=== PATIENT | female | born 1980 | race Caucasian/White ===

== ENCOUNTER → 2016-10-03 | Outpatient (CLI) | payer MEDICAID, OTHER | LOC: LABWHC1 17:15 | PROVIDERS: ATTEND Internal Medicine Endocrinology, Diabetes & Metabolism | CPT/HCPCS: 36415; 84439; 84443; 84480 ==

== ENCOUNTER 2016-10-25 19:16 | Emergency (ER) | payer MEDICAID, OTHER ==
[2016-10-25 19:24] VITALS: BP 118/73; PULSE 66; RESP 18; TEMP 98.7
[2016-10-25] MEDS ORDERED: ONDANSETRON ODT 4 MG TAB PO STA (19:57)
--- NOTE | 2016-10-25 20:03 | ED ---
Upper Extremity HPI - General Chief Complaint: Extremity Injury, Upper Stated Complaint: shoulder pain & diarrhea Time Seen by Provider: 10/25/16 19:50 Source: patient, RN notes reviewed Mode of arrival: ambulatory Limitations: no limitations - History of Present Illness Initial Comments: 35-year-old female presents emergency Department chief complaint left shoulder pain. Patient states it started yesterday. Patient states she had gradual onset of this pain states it's worse with any sort of movement of the left shoulder. Patient states she is right-hand dominant. She states that she felt that she may have injured it throwing a linen bag yesterday at work. 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 She denies chest pain, shortness breath, neck pain, headache, dizziness. She's been taking ibuprofen with no relief. Patient states that she also had a little bit nausea from the pain today. Patient has no abdominal pain denies any dysuria, hematuria. Patient states she has history of H. pylori no she's been treated for 4. Patient states she is scheduled recheck of this. Patient offers no other complaints. - Related Data Home Medications Medication Instructions Recorded Confirmed Methimazole [Tapazole] 2.5 mg PO DAILY 10/25/16 10/25/16 Previous Rx's Medication Instructions Recorded Cyclobenzaprine [Flexeril] 5 mg PO TID PRN #15 tablet 10/25/16 Hydrocodone/Acetaminophen [Bath 1 tab PO Q6HR PRN #20 tab 10/25/16 5-325] Allergies Allergy/AdvReac Type Severity Reaction Status Date / Time Cephalosporins Allergy Severe Rash/Hives Verified 10/25/16 19:49 Penicillins Allergy Severe Rash/Hives Verified 10/25/16 19:49 Sulfa (Sulfonamide Allergy Severe Rash/Hives Verified 10/25/16 19:49 Antibiotics) Review of Systems ROS Statement: Those systems with pertinent positive or pertinent negative responses have been documented in the HPI. ROS Other: All systems not noted in ROS Statement are negative. Past Medical History Past Medical History: Thyroid Disorder Additional Past Medical History / Comment(s): hx perforated ulcer, H Pylori, last seizure 2004,colitis, hypoglycemia, thyroid nodules, History of Any Multi-Drug Resistant Organisms: None Reported Past Surgical History: Appendectomy, Cholecystectomy Additional Past Surgical History / Comment(s): D&C, pilonidal cyst, cyst removed from back, leep procedure, sx for perforated ulcer.edg/colonoscopy Past Anesthesia/Blood Transfusion Reactions: Previous Problems w/ Anesthesia Additional Past Anesthesia/Blood Transfusion Reaction / Comment(s): "shaky and low BP" Past Psychological History: No Psychological Hx Reported Additional Psychological History / Comment(s): pt stated she lives with her 6 children ages 2,4,7,9,12,14. Smoking Status: Current some day smoker Past Alcohol Use History: None Reported Additional Past Alcohol Use History / Comment(s): smoked x 10 years has cut down now a someday smoker. a pack will last her 2 weeks Past Drug Use History: None Reported - Past Family History Brother(s) Family Medical History: Cancer General Exam Limitations: no limitations General appearance: alert, in no apparent distress Head exam: Present: atraumatic, normocephalic, normal inspection ENT exam: Present: normal oropharynx Neck exam: Present: normal inspection, full ROM. Absent: tenderness, meningismus, lymphadenopathy Respiratory exam: Present: normal lung sounds bilaterally. Absent: respiratory distress, wheezes, rales, rhonchi, stridor, chest wall tenderness Cardiovascular Exam: Present: regular rate, normal rhythm, normal heart sounds. Absent: systolic murmur, diastolic murmur, rubs, gallop, clicks GI/Abdominal exam: Present: soft, normal bowel sounds. Absent: distended, tenderness, guarding, rebound, rigid Extremities exam: Present: other (Left shoulder there is tenderness over left trapezius, deltoid region, there is pain with abduction, extension left shoulder there is equal strength 5/5 neurovascular intact no rashes noted) Skin exam: Present: warm, dry, intact, normal color. Absent: rash Course Vital Signs 10/25/16 19:18 Temperature 98.7 F Pulse Rate 66 Respiratory 18 Rate Blood Pressure 118/73 O2 Sat by Pulse 99 Oximetry Medical Decision Making - Medical Decision Making 34-year-old female presented for left shoulder pain. Patient states that she believes it's from throwing the linen bag. Patient x-rays negative. Patient has tenderness and spasm over the left deltoid, trapezius region. Patient left shoulder is drained. Patient we treated conservatively follow-up with her primary care physician and orthopedic no improvement after 7-10 days. Disposition Clinical Impression: Left shoulder strain, Muscle spasm Disposition: HOME SELF-CARE Condition: Stable Instructions: Shoulder Sprain (ED) Additional Instructions: Please return to the Emergency Department if symptoms worsen or any other concerns. Prescriptions: Cyclobenzaprine [Flexeril] 5 mg PO TID PRN #15 tablet PRN Reason: Muscle Spasm Hydrocodone/Acetaminophen [Bath 5-325] 1 tab PO Q6HR PRN #20 tab PRN Reason: Pain Time of Disposition: 20:39
--- NOTE | 2016-10-25 20:34 | XR ---
EXAMINATION TYPE: XR shoulder complete LT DATE OF EXAM: 10/25/2016 8:30 PM CLINICAL HISTORY: pain COMPARISON: NONE TECHNIQUE: Three views of the left shoulder are obtained. FINDINGS: There is no acute fracture/dislocation evident. The acromioclavicular and glenohumeral iveth int spaces appear within normal limits. The visualized ribs are intact and unremarkable. IMPRESSION: 1. There is no acute fracture or dislocation. ICD 10 NO FRACTURE, INITIAL EVALUATION
[2016-10-25] MEDS ORDERED: HYDROcodone/APAP 5-325MG 1 EACH TAB PO STA (20:36)
[2016-10-25] MEDS ORDERED: IBUPROFEN 600 MG TAB PO STA (20:40)
== END 2016-10-25 20:57 | disposition home or self-care (01) ==
LOC: EC 19:16
DX: S46.912A Strain of unspecified muscle, fascia and tendon at shoulder and upper arm level, left arm, initial encounter (principal); M62.838 Other muscle spasm; E07.9 Disorder of thyroid, unspecified; F17.200 Nicotine dependence, unspecified, uncomplicated; Z79.899 Other long term (current) drug therapy; Z88.0 Allergy status to penicillin; Z88.2 Allergy status to sulfonamides; Z88.1 Allergy status to other antibiotic agents; Y99.0 Civilian activity done for income or pay; X50.9XXA Other and unspecified overexertion or strenuous movements or postures, initial encounter
CPT/HCPCS: 99283

== ENCOUNTER 2017-02-21 16:20 | Emergency (ER) | payer MEDICAID, OTHER ==
[2017-02-21] MEDS ORDERED: SODIUM CHLORIDE 0.9% 1,000 ML IV STA ×2 (16:49)
[2017-02-21] MEDS ORDERED: ONDANSETRON 4 MG/2 ML VIAL IVP STA (16:49)
[2017-02-21] MEDS ORDERED: HYDROmorphone 1 MG/ML 1 ML SYRINGE IVP STA ×2 (16:49→19:09)
[2017-02-21] MEDS ORDERED: FAMOTIDINE 20 MG/2 ML VIAL IV STA (16:50)
--- NOTE | 2017-02-21 17:13 | ED ---
General Adult HPI - General Chief complaint: Abdominal Pain Stated complaint: abd pain Time Seen by Provider: 02/21/17 16:31 Source: patient, RN notes reviewed Mode of arrival: ambulatory Limitations: no limitations - History of Present Illness Initial comments: Patient is a 36-year-old female who presents emergency room today with a chief complaint of increased abdominal pain. She does admit to a history of H. pylori. She states that she's had flareups in the past. She does admit that she's had increased abdominal pain that started earlier today while being at work. She does admit that she has been nauseated now over the last few days. Patient denies any other complaints or associated symptoms. Patient denies any recent fever, chills, shortness of breath, chest pain, back pain, vomiting, numbness or tingling, dysuria or hematuria, constipation or diarrhea, headaches or visual changes, or any other complaints. - Related Data Home Medications Medication Instructions Recorded Confirmed Methimazole [Tapazole] 2.5 mg PO DAILY 10/25/16 02/21/17 Ibuprofen [Motrin] 400 - 800 mg PO Q8H PRN 02/21/17 02/21/17 Previous Rx's Medication Instructions Recorded Famotidine [Pepcid] 20 mg PO BID #20 tablet 02/21/17 Hydrocodone/Acetaminophen [Henry 1 each PO Q6HR PRN #20 tab 02/21/17 5-325] Allergies Allergy/AdvReac Type Severity Reaction Status Date / Time Cephalosporins Allergy Severe Rash/Hives Verified 02/21/17 17:20 Penicillins Allergy Severe Rash/Hives Verified 02/21/17 17:20 Sulfa (Sulfonamide Allergy Severe Rash/Hives Verified 02/21/17 17:20 Antibiotics) Review of Systems ROS Statement: Those systems with pertinent positive or pertinent negative responses have been documented in the HPI. ROS Other: All systems not noted in ROS Statement are negative. Past Medical History Past Medical History: Thyroid Disorder Additional Past Medical History / Comment(s): hx perforated ulcer, H Pylori, last seizure 2004,colitis, hypoglycemia, thyroid nodules, History of Any Multi-Drug Resistant Organisms: None Reported Past Surgical History: Appendectomy, Cholecystectomy Additional Past Surgical History / Comment(s): D&C, pilonidal cyst, cyst removed from back, leep procedure, sx for perforated ulcer.edg/colonoscopy Past Anesthesia/Blood Transfusion Reactions: Previous Problems w/ Anesthesia Additional Past Anesthesia/Blood Transfusion Reaction / Comment(s): "shaky and low BP" Past Psychological History: No Psychological Hx Reported Smoking Status: Current every day smoker Past Alcohol Use History: None Reported Past Drug Use History: None Reported - Past Family History Brother(s) Family Medical History: Cancer General Exam - General Exam Comments Initial Comments: General: The patient is awake and alert, in no distress, and does not appear acutely ill. Eye: Pupils are equal, round and reactive to light, extra-ocular movements are intact. No nystagmus. There is normal conjunctiva bilaterally. No signs of icterus. Ears, nose, mouth and throat: There are moist mucous membranes and no oral lesions. Neck: The neck is supple, there is no tenderness or JVD. Cardiovascular: There is a regular rate and rhythm. No murmur, rub or gallop is appreciated. Respiratory: Lungs are clear to auscultation, respirations are non-labored, breath sounds are equal. No wheezes, stridor, rales, or rhonchi. Gastrointestinal: Normal appearance abdomen. Normal bowel sounds. Abdomen soft on palpation. Patient does have tenderness epigastric. No rebound tenderness. No guarding. No CVA tenderness. Musculoskeletal: Normal ROM, no tenderness. Strength 5/5. Sensation intact. Pulses equal bilaterally 2+. Neurological: A&O x 3. CN II-XII intact, There are no obvious motor or sensory deficits. Coordination appears grossly intact. Speech is normal. Skin: Skin is warm and dry and no rashes or lesions are noted. Psychiatric: Cooperative, appropriate mood & affect, normal judgment. Limitations: no limitations Course Vital Signs 02/21/17 16:24 Temperature 98.1 F Pulse Rate 68 Respiratory 20 Rate Blood Pressure 129/78 O2 Sat by Pulse 99 Oximetry Medical Decision Making - Medical Decision Making Patient's labs reviewed unremarkable. Patient still experiencing some discomfort to the epigastric area but does admit that the GI cocktail didn't improve. She does admit to a history of both H. pylori along with ulcer in the past. Was discussed with patient that she does need follow-up with her GI doctor for further evaluation and possible EGD. Patient does take a acid hog buyer. Advised to double up this medication also take Pepcid. Patient will be discharged home advised follow-up with GI tomorrow. Advised return if symptoms increase or worsen. - Lab Data Result diagrams: 02/21/17 17:00 02/21/17 17:00 Lab Results 02/21/17 02/21/17 02/21/17 Range/Units 17:00 17:00 17:00 WBC 8.8 (3.8-10.6) k/uL RBC 4.33 (3.80-5.40) m/uL Hgb 14.6 (11.4-16.0) gm/dL Hct 41.4 (34.0-46.0) % MCV 95.5 (80.0-100.0) fL MCH 33.6 (25.0-35.0) pg MCHC 35.2 (31.0-37.0) g/dL RDW 13.1 (11.5-15.5) % Plt Count 238 (150-450) k/uL Neutrophils % 72 % Lymphocytes % 19 % Monocytes % 5 % Eosinophils % 1 % Basophils % 1 % Neutrophils # 6.4 (1.3-7.7) k/uL Lymphocytes # 1.7 (1.0-4.8) k/uL Monocytes # 0.5 (0-1.0) k/uL Eosinophils # 0.1 (0-0.7) k/uL Basophils # 0.1 (0-0.2) k/uL Sodium 139 (137-145) mmol/L Potassium 3.8 (3.5-5.1) mmol/L Chloride 107 (98-107) mmol/L Carbon Dioxide 23 (22-30) mmol/L Anion Gap 9 mmol/L BUN 10 (7-17) mg/dL Creatinine 0.61 (0.52-1.04) mg/dL Est GFR (MDRD) Af Amer >60 (>60 ml/min/1.73 sqM) Est GFR (MDRD) Non-Af >60 (>60 ml/min/1.73 sqM) Glucose 85 (74-99) mg/dL Calcium 9.2 (8.4-10.2) mg/dL Total Bilirubin 0.6 (0.2-1.3) mg/dL AST 31 (14-36) U/L ALT 46 (9-52) U/L Alkaline Phosphatase 72 (38-126) U/L Total Protein 6.6 (6.3-8.2) g/dL Albumin 4.1 (3.5-5.0) g/dL Amylase <30 L (30-110) U/L Lipase 54 (23-300) U/L Urine Color Yellow Urine Appearance Cloudy H (Clear) Urine pH 5.5 (5.0-8.0) Ur Specific [place] 1.014 (1.001-1.035) Urine Protein Negative (Negative) Urine Glucose (UA) Negative (Negative) Urine Ketones Negative (Negative) Urine Blood Small H (Negative) Urine Nitrite Negative (Negative) Urine Bilirubin Negative (Negative) Urine Urobilinogen <2.0 (<2.0) mg/dL Ur Leukocyte Esterase Negative (Negative) Urine RBC 2 (0-5) /hpf Urine WBC 2 (0-5) /hpf Ur Squamous Epith Cells 10 H (0-4) /hpf Urine Bacteria Rare H (None) /hpf Urine Mucus Rare H (None) /hpf Urine Yeast (Budding) Moderate H (None) /hpf Urine HCG, Qual (Not Detectd) 02/21/17 Range/Units 17:00 WBC (3.8-10.6) k/uL RBC (3.80-5.40) m/uL Hgb (11.4-16.0) gm/dL Hct (34.0-46.0) % MCV (80.0-100.0) fL MCH (25.0-35.0) pg MCHC (31.0-37.0) g/dL RDW (11.5-15.5) % Plt Count (150-450) k/uL Neutrophils % % Lymphocytes % % Monocytes % % Eosinophils % % Basophils % % Neutrophils # (1.3-7.7) k/uL Lymphocytes # (1.0-4.8) k/uL Monocytes # (0-1.0) k/uL Eosinophils # (0-0.7) k/uL Basophils # (0-0.2) k/uL Sodium (137-145) mmol/L Potassium (3.5-5.1) mmol/L Chloride (98-107) mmol/L Carbon Dioxide (22-30) mmol/L Anion Gap mmol/L BUN (7-17) mg/dL Creatinine (0.52-1.04) mg/dL Est GFR (MDRD) Af Amer (>60 ml/min/1.73 sqM) Est GFR (MDRD) Non-Af (>60 ml/min/1.73 sqM) Glucose (74-99) mg/dL Calcium (8.4-10.2) mg/dL Total Bilirubin (0.2-1.3) mg/dL AST (14-36) U/L ALT (9-52) U/L Alkaline Phosphatase (38-126) U/L Total Protein (6.3-8.2) g/dL Albumin (3.5-5.0) g/dL Amylase (30-110) U/L Lipase (23-300) U/L Urine Color Urine Appearance (Clear) Urine pH (5.0-8.0) Ur Specific [place] (1.001-1.035) Urine Protein (Negative) Urine Glucose (UA) (Negative) Urine Ketones (Negative) Urine Blood (Negative) Urine Nitrite (Negative) Urine Bilirubin (Negative) Urine Urobilinogen (<2.0) mg/dL Ur Leukocyte Esterase (Negative) Urine RBC (0-5) /hpf Urine WBC (0-5) /hpf Ur Squamous Epith Cells (0-4) /hpf Urine Bacteria (None) /hpf Urine Mucus (None) /hpf Urine Yeast (Budding) (None) /hpf Urine HCG, Qual Not Detected (Not Detectd) Disposition Clinical Impression: Epigastric abdominal pain Disposition: HOME SELF-CARE Condition: Good Instructions: Abdominal Pain (ED) Additional Instructions: Please use medication as discussed. Please follow-up with GI / family doctor in the next 2 days of symptoms have not improved. Please return to emergency room if the symptoms increase or worsen or for any other concerns. Prescriptions: Famotidine [Pepcid] 20 mg PO BID #20 tablet Hydrocodone/Acetaminophen [Henry 5-325] 1 each PO Q6HR PRN #20 tab PRN Reason: Pain Referrals: None,Stated [Primary Care Provider] - 1-2 days Aide Dove MD [STAFF PHYSICIAN] - 1-2 days Clemente Orozco MD [REFERRING] - 1-2 days Time of Disposition: 19:11
[2017-02-21 17:14] LABS: Basophils # (A) 0.1 k/uL (0-0.2); Basophils % (A) 1 %; CH 35.2; Eosinophils # (A) 0.1 k/uL (0-0.7); Eosinophils % (A) 1 %; HCT 41.4 % (34.0-46.0); HDW 2.64; HGB 14.6 gm/dL (11.4-16.0); Luc # (Auto) 0.16; Luc % (Auto) 2; Lymphocytes # (A) 1.7 k/uL (1.0-4.8); Lymphocytes % (A) 19 %; MCH 33.6 pg (25.0-35.0); MCHC 35.2 g/dL (31.0-37.0); MCV 95.5 fL (80.0-100.0); Mean Platelet Volume 7.9; Monocytes # (A) 0.5 k/uL (0-1.0); Monocytes % (A) 5 %; Neutrophils # (A) 6.4 k/uL (1.3-7.7); Neutrophils % (A) 72 %; RBC 4.33 m/uL (3.80-5.40); RDW 13.1 % (11.5-15.5); WBC 8.8 k/uL (3.8-10.6); WBC (Perox) 8.69
[2017-02-21 17:23] LABS: ALT 46 U/L (9-52); AST 31 U/L (14-36); Alkaline Phosphatase 72 U/L (38-126); Amylase <30 U/L (30-110); Anion Gap 9 mmol/L; Blood Urea Nitrogen 10 mg/dL (7-17); Calcium 9.2 mg/dL (8.4-10.2); Carbon Dioxide 23 mmol/L (22-30); Chloride 107 mmol/L (98-107); Glucose 85 mg/dL (74-99); Non-African American GFR(MDRD) >60 (>60 ml/min/1.73 sqM); Potassium 3.8 mmol/L (3.5-5.1); Sodium 139 mmol/L (137-145); Total Bilirubin 0.6 mg/dL (0.2-1.3); Total Protein 6.6 g/dL (6.3-8.2)
[2017-02-21 17:24] LABS: Appearance,Urine Cloudy (Clear); Bacteria,Urine Rare /hpf; Bilirubin,Urine Negative (Negative); Glucose,Urine (UA) Negative (Negative); Ketones,Urine Negative (Negative); Leukocyte Esterase,Urine Negative (Negative); Mucus,Urine Rare /hpf; Nitrite,Urine Negative (Negative); PH, Urine 5.5 (5.0-8.0); Particle Count 5909; Protein,Urine Negative (Negative); RBC,Urine 2 /hpf (0-5); Specific Gravity,Urine 1.014 (1.001-1.035); Squamous Epithelial Cell,Urine 10 /hpf (0-4); UA Billing (MACRO vs. MICRO) MICRO; Urobilinogen,Urine <2.0 mg/dL (<2.0); WBC,Urine 2 /hpf (0-5)
[2017-02-21] MEDS ORDERED: MAG HYDROX/AL HYDROX/SIMETH 30 ML, HYOSCYAMINE ELIXIR 10 ML, CIMETIDINE HCL 300 MG, LID... PO STA ×4 (17:53)
[2017-02-21] MEDS ORDERED: PANTOPRAZOLE 40 MG/10 ML VIAL IVP STA (18:56)
[2017-02-21 19:27] VITALS: BP 109/56; PULSE 56; RESP 16; TEMP 97.6
== END 2017-02-21 20:03 | disposition home or self-care (01) ==
LOC: EC 16:20
DX: R10.13 Epigastric pain (principal); R11.0 Nausea; E07.89 Other specified disorders of thyroid; F17.200 Nicotine dependence, unspecified, uncomplicated; Z79.899 Other long term (current) drug therapy; Z88.0 Allergy status to penicillin; Z88.1 Allergy status to other antibiotic agents; Z88.2 Allergy status to sulfonamides; Z90.49 Acquired absence of other specified parts of digestive tract
CPT/HCPCS: 99284; 96374; 96375 ×3; 96376; 96361 ×3; 36415; 80053; 82150; 83690; 85025; 81001; 81025; 86677; J2405; J1170; C9113

== ENCOUNTER 2017-05-28 15:33 | Emergency (ER) | payer MEDICAID, OTHER ==
[2017-05-28 15:56] VITALS: BP 119/80; PULSE 81; RESP 16; TEMP 97.9
[2017-05-28] MEDS ORDERED: PROPARACAINE 0.5% OPHTH DROPS 15 ML BTL LEFT EYE STA (16:02)
--- NOTE | 2017-05-28 16:12 | ED ---
Eye Problem HPI - General Chief complaint: Eye Problems Stated complaint: Eye Problem Time Seen by Provider: 05/28/17 15:46 Source: patient, RN notes reviewed Mode of arrival: ambulatory Limitations: no limitations - History of Present Illness Initial comments: This is a 36-year-old female who presents to the emergency department with chief complaint of left eye redness and tearing. Patient states that she was diagnosed and treated for conjunctivitis one month ago. She states this past Sunday evening her left eye became red and painful. She states that she took out her contacts and did not wear them for the remainder of the weekend. She states that there has been purulent discharge and tearing. She reports photophobia. She denies itchiness or vision changes. Patient reports nasal congestion, sore throat and cough. She reports she is a contact lens wearer. Denies fever, chills, chest pain, shortness of breath, abdominal pain, nausea or vomiting, constipation or diarrhea, dysuria or hematuria, numbness or tingling, headache or vision changes. - Related Data Previous Rx's Medication Instructions Recorded Ciprofloxacin Ophth Soln [Cipro 1 drops LEFT EYE DIRECTED 7 05/28/17 0.3% Ophth Soln] Days #1 bottle Allergies Allergy/AdvReac Type Severity Reaction Status Date / Time Cephalosporins Allergy Severe Rash/Hives Verified 04/10/17 22:21 Penicillins Allergy Severe Rash/Hives Verified 04/10/17 22:21 Sulfa (Sulfonamide Allergy Severe Rash/Hives Verified 04/10/17 22:21 Antibiotics) Review of Systems ROS Statement: Those systems with pertinent positive or pertinent negative responses have been documented in the HPI. ROS Other: All systems not noted in ROS Statement are negative. Past Medical History Past Medical History: Thyroid Disorder Additional Past Medical History / Comment(s): hx perforated ulcer, H Pylori, last seizure 2004,colitis, hypoglycemia, thyroid nodules, History of Any Multi-Drug Resistant Organisms: None Reported Past Surgical History: Appendectomy, Cholecystectomy Additional Past Surgical History / Comment(s): D&C, pilonidal cyst, cyst removed from back, leep procedure, sx for perforated ulcer.edg/colonoscopy Past Anesthesia/Blood Transfusion Reactions: Previous Problems w/ Anesthesia Additional Past Anesthesia/Blood Transfusion Reaction / Comment(s): "shaky and low BP" Past Psychological History: No Psychological Hx Reported Smoking Status: Current every day smoker Past Alcohol Use History: None Reported Past Drug Use History: None Reported - Past Family History Brother(s) Family Medical History: Cancer General Exam - General Exam Comments Initial Comments: General: Awake and alert, well-developed; in no apparent distress. HEENT: Head atraumatic, normocephalic. Pupils are equal, round and reactive to light. Extraocular movements intact. Left conjunctiva injected. Excessive lacrimation noted. Fluorescein staining revealed no abrasions or ulcers. Oropharynx moist without erythema or exudate. Neck: Supple. Normal ROM. Cardiovascular: Regular rate and rhythm. No murmurs, rubs or gallops. Chest symmetrical. Respiratory: Lungs clear to auscultation bilaterally. No wheezes, rales or rhonchi. Normal respiratory effort with no use of accessory muscles. Skin: [place], warm and dry without rashes or lesions. Neurological: Alert and oriented x3. CN II-XII grossly intact. Speech is fluent and answers are appropriate. No focal neuro deficits. Psychiatric: Normal mood and affect. No overt signs of depression or anxiety noted. Limitations: no limitations Course Vital Signs 05/28/17 15:53 Temperature 97.9 F Pulse Rate 81 Respiratory 16 Rate Blood Pressure 119/80 O2 Sat by Pulse 98 Oximetry Medical Decision Making - Medical Decision Making This is a 36-year-old female who presents to the emergency department with chief complaint of left eye redness and tearing. Pupils are equal round and reactive to light. Extraocular movements are intact. Fluorescein staining revealed no abrasions or ulcers. Left conjunctiva is injected. Patient will be discharged home with prescription for ciprofloxacin eyedrops. She was instructed to withhold use of contact lenses during treatment. She is given referral to ophthalmology. She is to follow up within 1-2 days. Patient is in agreement with the plan and voices understanding. All questions were answered. Disposition Clinical Impression: Viral conjunctivitis Disposition: HOME SELF-CARE Condition: Good Instructions: Conjunctivitis (ED) Additional Instructions: Please apply ciprofloxacin to left eye: 1-2 drops every 2-4 hours for 2 days then 1-2 drops every 6 hours for 5 days. Please follow up with Dr. Braxton, ophthalmology. Please follow up with primary care provider within 1-2 days. Return to emergency department if symptoms should worsen or any concerns arise. Prescriptions: Ciprofloxacin Ophth Soln [Cipro 0.3% Ophth Soln] 1 drops LEFT EYE DIRECTED 7 Days #1 bottle Referrals: None,Stated [Primary Care Provider] - 1-2 days Time of Disposition: 16:22
== END 2017-05-28 16:27 | disposition home or self-care (01) ==
LOC: EC 15:33
DX: B30.9 Viral conjunctivitis, unspecified (principal); F17.200 Nicotine dependence, unspecified, uncomplicated; Z88.1 Allergy status to other antibiotic agents; Z88.0 Allergy status to penicillin; Z88.2 Allergy status to sulfonamides
CPT/HCPCS: 99283

== ENCOUNTER 2017-07-06 16:45 | Emergency (ER) | payer MEDICAID, OTHER ==
[~2017-07-06 16:45] MED LIST: SODIUM CHLORIDE 0.9% 1,000 ML BAG ONE
[2017-07-06] MEDS ORDERED: ACETAMINOPHEN TAB 325 MG TAB ONE (20:52)
[2017-07-06] MEDS ORDERED: KETOROLAC 30 MG/ML 1 ML VIAL ONE (20:52)
[2017-07-06] MEDS ORDERED: ONDANSETRON 4 MG/2 ML VIAL ONE (20:52)
[2017-07-07 17:16] LABS: Appearance,Urine Cloudy (Clear); Bilirubin,Urine Negative (Negative); Blood,Urine Trace (Negative); Color,Urine Yellow; Glucose,Urine (UA) Negative (Negative); Ketones,Urine 1+ (Negative); Leukocyte Esterase,Urine Trace (Negative); Mucus,Urine Many /hpf; Nitrite,Urine Negative (Negative); PH, Urine 5.5 (5.0-8.0); Protein,Urine 1+ (Negative); RBC,Urine 1 /hpf (0-5); Specific Gravity,Urine 1.028 (1.001-1.035); Squamous Epithelial Cell,Urine 7 /hpf (0-4); WBC,Urine 2 /hpf (0-5)
[2017-07-07 17:33] LABS: Basophils # (A) 0.1 k/uL (0-0.2); Basophils % (A) 1 %; Eosinophils # (A) 0.1 k/uL (0-0.7); Eosinophils % (A) 1 %; HCT 43.6 % (34.0-46.0); HGB 15.8 gm/dL (11.4-16.0); Lymphocytes # (A) 1.8 k/uL (1.0-4.8); Lymphocytes % (A) 17 %; MCH 33.9 pg (25.0-35.0); MCHC 36.2 g/dL (31.0-37.0); MCV 93.7 fL (80.0-100.0); Mean Platelet Volume 7.3; Monocytes # (A) 0.6 k/uL (0-1.0); Monocytes % (A) 5 %; Neutrophils # (A) 7.8 k/uL (1.3-7.7); Neutrophils % (A) 74 %; Platelet Count 234 k/uL (150-450); RBC 4.66 m/uL (3.80-5.40); RDW 12.6 % (11.5-15.5); WBC 10.6 k/uL (3.8-10.6)
[2017-07-07 17:36] LABS: ALT 64 U/L (9-52); AST 31 U/L (14-36); Albumin 4.4 g/dL (3.5-5.0); Alkaline Phosphatase 99 U/L (38-126); Anion Gap 13 mmol/L; Blood Urea Nitrogen 10 mg/dL (7-17); Calcium 10.1 mg/dL (8.4-10.2); Carbon Dioxide 26 mmol/L (22-30); Chloride 103 mmol/L (98-107); Glucose 83 mg/dL (74-99); Potassium 3.6 mmol/L (3.5-5.1); Sodium 142 mmol/L (137-145); Total Bilirubin 0.8 mg/dL (0.2-1.3); Total Protein 7.3 g/dL (6.3-8.2)
[2017-07-07 19:03] LABS: HCG,Quantitative Serum <2.4 mIU/mL
== END 2017-07-06 22:23 | disposition home or self-care (01) ==
LOC: EC 16:45
DX: N39.0 Urinary tract infection, site not specified (principal); F17.200 Nicotine dependence, unspecified, uncomplicated; Z90.49 Acquired absence of other specified parts of digestive tract
CPT/HCPCS: 36415; 80053; 85025; 81001; 84702; 99283; 96374; 96375; 96361; J2405; J1885

== ENCOUNTER → 2017-10-09 | Outpatient (CLI) | payer MEDICAID, OTHER ==
[2017-10-09 16:09] LABS: T4, Free (Free Thyroxine) 1.17 ng/dL (0.78-2.19)
== END | disposition home or self-care (01) ==
LOC: LABWHC1 15:14
PROVIDERS: ATTEND Internal Medicine Endocrinology, Diabetes & Metabolism
DX: E05.90 Thyrotoxicosis, unspecified without thyrotoxic crisis or storm (principal)
CPT/HCPCS: 36415; 84439; 84443; 84481

== ENCOUNTER 2017-11-23 13:20 | Emergency (ER) | payer MEDICAID, OTHER ==
[2017-11-23 13:49] VITALS: BP 122/73; PULSE 75; RESP 18; TEMP 98.1
--- NOTE | 2017-11-23 14:50 | ED ---
General Adult HPI - General Chief complaint: Skin/Abscess/Foreign Body Stated complaint: Abcess Time Seen by Provider: 11/23/17 13:57 Source: patient, RN notes reviewed Mode of arrival: ambulatory Limitations: no limitations - History of Present Illness Initial comments: 37-year-old female presents to the emergency determine for a chief complaint of skin lesion x 3 years. Patient states in the past 2 weeks has started to become painful. Patient denies any fevers or chills at home. Patient has not had it looked at by a family doctor. Patient has not taken anything for pain. Patient does state she has had shortness of breath for the past couple years and would like an x-ray. Patient is a smoker. Patient denies any shortness of breath right now. Patient denies any chest pain except when you press on the skin nodule. Patient states she is able to follow up with her primary care doctor. Patient denies any chance of . Patient has no other complaints at this time including shortness of breath, chest pain, abdominal pain, nausea or vomiting, headache, or visual changes. - Related Data Home Medications Medication Instructions Recorded Confirmed [place] (Unknown Dose) 1 tab PO DAILY 11/23/17 11/23/17 Potassium (Unknown Dose) 1 tab PO DAILY 11/23/17 11/23/17 Allergies Allergy/AdvReac Type Severity Reaction Status Date / Time Cephalosporins Allergy Severe Rash/Hives Verified 11/23/17 13:54 Penicillins Allergy Severe Rash/Hives Verified 11/23/17 13:54 Sulfa (Sulfonamide Allergy Severe Rash/Hives Verified 11/23/17 13:54 Antibiotics) Review of Systems ROS Statement: Those systems with pertinent positive or pertinent negative responses have been documented in the HPI. ROS Other: All systems not noted in ROS Statement are negative. Past Medical History Past Medical History: Seizure Disorder, Thyroid Disorder Additional Past Medical History / Comment(s): hx perforated ulcer, H Pylori, last seizure 2004,colitis, hypoglycemia, thyroid nodules, History of Any Multi-Drug Resistant Organisms: None Reported Past Surgical History: Appendectomy, Cholecystectomy Additional Past Surgical History / Comment(s): D&C, pilonidal cyst, cyst removed from back, leep procedure, sx for perforated ulcer.edg/colonoscopy Past Anesthesia/Blood Transfusion Reactions: Previous Problems w/ Anesthesia Additional Past Anesthesia/Blood Transfusion Reaction / Comment(s): "shaky and low BP" Past Psychological History: Anxiety Smoking Status: Current every day smoker Past Alcohol Use History: None Reported Past Drug Use History: None Reported - Past Family History Brother(s) Family Medical History: Cancer General Exam Limitations: no limitations General appearance: alert, in no apparent distress Head exam: Present: atraumatic, normocephalic, normal inspection Neck exam: Present: normal inspection. Absent: tenderness, meningismus, lymphadenopathy Respiratory exam: Present: normal lung sounds bilaterally, chest wall tenderness (Chest wall tenderness around the nodule.). Absent: respiratory distress, wheezes, rales, rhonchi, stridor Cardiovascular Exam: Present: regular rate, normal rhythm, normal heart sounds. Absent: systolic murmur, diastolic murmur, rubs, gallop, clicks Neurological exam: Present: alert, altered Psychiatric exam: Present: normal affect, normal mood Skin exam: Present: other (There is a slightly erythematous 1.5 cm nodule. Upon palpation nodule is indurated. It is not fluctuant and cannot be drained. No signs of cellulitis or infection. No spreading redness or streaking redness.) Course Vital Signs 11/23/17 13:46 Temperature 98.1 F Pulse Rate 75 Respiratory 18 Rate Blood Pressure 122/73 O2 Sat by Pulse 97 Oximetry Medical Decision Making - Medical Decision Making 37-year-old female presents to the emergency department for a chief complaint of 1.5 cm nodule above the left breast 3 years. Patient states it started to become painful in the past 2 weeks. Patient states denies any fevers or chills at home. Patient denies any chest pain. She does states she has been short of breath for the past couple years and is a smoker. She would like a chest x- ray. She states she can follow-up with primary care for this problem. On exam there is a tender slightly red 1.5 cm nodule above the left breast. It does not appear infected and there are no signs of cellulitis. No signs of spreading redness or drainage. It is indurated and mobile. No fluctuation. Nodule cannot be drained because of this. She will follow up with dermatology in 1-2 days. She will return to the emergency Department if she notices any worsening symptoms or signs of infection. She will do warm compresses in case that helps with the tenderness. She can take Motrin and Tylenol for pain. She was not given an antibiotic because it is not likely that she needs one and she is ALLERGIC to penicillin and cephalosporins and sulfas. She is not sure what type of antibiotic she tolerates. She was given thorough return precautions for any signs of infection and she will return if she notices any. Disposition Clinical Impression: Skin nodule Disposition: HOME SELF-CARE Condition: Good Instructions: Abscess (ED) Additional Instructions: Please apply warm compresses. Please follow-up with dermatology in 1-2 days. Please return to the emergency department if you have any worsening symptoms or signs of infection. Is patient prescribed a controlled substance at d/c from ED?: No Referrals: Red Negrete MD [Primary Care Provider] - 1-2 days Barak Luke MD [STAFF PHYSICIAN] - 1-2 days Time of Disposition: 15:32
--- NOTE | 2017-11-23 15:27 | XR ---
EXAMINATION TYPE: XR chest 2V DATE OF EXAM: 11/23/2017 COMPARISON: 02/24/2015 HISTORY: Cough, congestion, and fever TECHNIQUE: Frontal and lateral views of the chest are obtained. FINDINGS: There is no focal air space opacity, pleural effusion, or pneumothorax seen. The cardiac silhouette size is within normal limits. The osseous structures are intact. Cholecystectomy clips r eside within the right upper quadrant. There is incidental note of a slight pectus excavatum deformit y. IMPRESSION: No acute cardiopulmonary process.
== END 2017-11-23 15:44 | disposition home or self-care (01) ==
LOC: EC 13:20
DX: R22.2 Localized swelling, mass and lump, trunk (principal); F17.200 Nicotine dependence, unspecified, uncomplicated; Z79.899 Other long term (current) drug therapy; Z88.0 Allergy status to penicillin; Z88.1 Allergy status to other antibiotic agents; Z88.2 Allergy status to sulfonamides
CPT/HCPCS: 71046; 99283

== ENCOUNTER 2018-07-20 15:35 | Emergency (ER) | payer MEDICAID, OTHER ==
[2018-07-20] MEDS ORDERED: MORPHINE SULFATE 4 MG/ML SYRINGE IV STA (16:31)
[2018-07-20] MEDS ORDERED: SODIUM CHLORIDE 0.9% 1,000 ML IV STA (16:31)
[2018-07-20] MEDS ORDERED: ONDANSETRON 4 MG/2 ML VIAL IVP STA (16:31)
--- NOTE | 2018-07-20 16:45 | ED ---
Abdominal Pain HPI - General Chief Complaint: Abdominal Pain Stated Complaint: , Cramping Time Seen by Provider: 07/20/18 16:11 Source: patient Mode of arrival: ambulatory Limitations: no limitations - History of Present Illness Initial Comments: Patient is a 37-year-old female presenting for abdominal pain. The patient states that the pain is been present for the last 3-4 days and is located in the lower abdomen all the way across with more so on the right side. She states that the pain does radiate to her back but she denies any urinary symptoms vaginal discharge or fevers/chills. She states that she is also had her appendix removed and she has had a history of an ectopic 4 years ago. She admits to nausea but no vomiting. She also has had diarrhea but she has IBS. Her last menstrual period was sometime last month and she thinks that she is late. - Related Data Home Medications Medication Instructions Recorded Confirmed No Known Home Medications 07/20/18 07/20/18 Allergies Allergy/AdvReac Type Severity Reaction Status Date / Time Cephalosporins Allergy Severe Rash/Hives Verified 07/20/18 16:19 Penicillins Allergy Severe Rash/Hives Verified 07/20/18 16:19 Sulfa (Sulfonamide Allergy Severe Rash/Hives Verified 07/20/18 16:19 Antibiotics) Review of Systems ROS Statement: Those systems with pertinent positive or pertinent negative responses have been documented in the HPI. Constitutional: Negative for chills, fatigue and fever. HENT: Negative for congestion. Respiratory: Negative for chest tightness, shortness of breath and wheezing. Negative for cough Cardiovascular: Negative for chest pain and palpitations. Gastrointestinal: Positive for abdominal pain. Negative for abdominal distention , diarrhea, and vomiting. Positive for nausea Genitourinary: Negative for dysuria. Musculoskeletal: Negative for back pain, neck pain and neck stiffness. Skin: Negative for color change. Neurological: Negative for dizziness, speech difficulty, weakness and light- headedness. Psychiatric/Behavioral: Negative for agitation and confusion. Negative for anxiety ROS Other: All systems not noted in ROS Statement are negative. Past Medical History Past Medical History: Seizure Disorder, Thyroid Disorder Additional Past Medical History / Comment(s): hx perforated ulcer, H Pylori, last seizure 2004,colitis, hypoglycemia, thyroid nodules, History of Any Multi-Drug Resistant Organisms: None Reported Past Surgical History: Appendectomy, Cholecystectomy Additional Past Surgical History / Comment(s): D&C, pilonidal cyst, cyst removed from back, leep procedure, sx for perforated ulcer.edg/colonoscopy Past Anesthesia/Blood Transfusion Reactions: Previous Problems w/ Anesthesia Additional Past Anesthesia/Blood Transfusion Reaction / Comment(s): "shaky and low BP" Past Psychological History: Anxiety Smoking Status: Current every day smoker Past Alcohol Use History: None Reported Past Drug Use History: None Reported - Past Family History Brother(s) Family Medical History: Cancer General Exam - General Exam Comments Initial Comments: Constitutional: Pt is oriented to person, place, and time. Pt appears well- developed and well-nourished. No distress. HENT: Head: Normocephalic and atraumatic. Eyes: EOM are normal. Neck: Normal range of motion. Neck supple. Cardiovascular: Normal rate, regular rhythm, S1 normal, S2 normal and normal heart sounds. Exam reveals no gallop and no friction rub. No murmur heard. Pulmonary/Chest: Effort normal and breath sounds normal. No tachypnea and no bradypnea. No respiratory distress. No wheezes or rales noted. Abdominal: Soft. Bowel sounds are normal. Pt exhibits no shifting dullness, no distension, no pulsatile liver, no fluid wave, no abdominal bruit and no ascites. There is no tenderness. There is no rigidity, no rebound, no guarding, no tenderness at McBurney's point and negative Valencia's sign. Musculoskeletal: Normal range of motion. : Bimanual exam was performed with female outside collector in the room. There is no evidence of adnexal tenderness and cervical os was closed. Neurological: Pt is alert and oriented to person, place, and time. No cranial nerve deficit. Skin: Skin is warm and dry. No rash noted. Pt is not diaphoretic. No erythema. No pallor. Psychiatric: Pt has a normal mood and affect. Pt behavior is normal. Thought content normal. Limitations: no limitations Course Vital Signs 07/20/18 07/20/18 07/20/18 15:41 18:10 19:43 Temperature 98.1 F 97.8 F 98.5 F Pulse Rate 85 73 82 Respiratory 18 16 15 Rate Blood Pressure 125/85 136/73 127/83 O2 Sat by Pulse 99 99 96 Oximetry 07/20/18 20:31 Temperature 98.3 F Pulse Rate 74 Respiratory 18 Rate Blood Pressure 114/69 O2 Sat by Pulse 98 Oximetry Medical Decision Making - Medical Decision Making Laboratory studies showed that there was no significant leukocytosis and from electrolyte standpoint, these were within normal limits. Beta hCG was measured at 329.3 and ultrasound of the pelvis was completed and showed: Right ovarian follicles with large thick walled cyst seen with inner hyperechoic cystic area that could be early gestational sac based on hCG. Sac measures 0.55 cm. Case is discussed with OB covering for patient's inspector fibrous wallboard, , and it was recommended that the patient follow up promptly on Sunday for repeat beta hCGs. Based on bimanual exam, there was no significant tenderness and it was thought that this was appropriate. His explained to patient and significant other and both were agreeable to plan. - Lab Data Result diagrams: 07/20/18 17:13 07/20/18 17:13 Lab Results 07/20/18 07/20/18 07/20/18 Range/Units 17:13 17:13 17:13 WBC 10.7 H (3.8-10.6) k/uL RBC 4.44 (3.80-5.40) m/uL Hgb 14.6 (11.4-16.0) gm/dL Hct 41.2 (34.0-46.0) % MCV 92.8 (80.0-100.0) fL MCH 32.9 (25.0-35.0) pg MCHC 35.5 (31.0-37.0) g/dL RDW 12.5 (11.5-15.5) % Plt Count 240 (150-450) k/uL Neutrophils % 73 % Lymphocytes % 18 % Monocytes % 5 % Eosinophils % 2 % Basophils % 1 % Neutrophils # 7.8 H (1.3-7.7) k/uL Lymphocytes # 1.9 (1.0-4.8) k/uL Monocytes # 0.6 (0-1.0) k/uL Eosinophils # 0.2 (0-0.7) k/uL Basophils # 0.1 (0-0.2) k/uL PT 9.5 (9.0-12.0) sec INR 0.9 (<1.2) APTT 24.8 (22.0-30.0) sec Sodium 138 (137-145) mmol/L Potassium 3.9 (3.5-5.1) mmol/L Chloride 108 H (98-107) mmol/L Carbon Dioxide 22 (22-30) mmol/L Anion Gap 8 mmol/L BUN 9 (7-17) mg/dL Creatinine 0.51 L (0.52-1.04) mg/dL Est GFR (CKD-EPI)AfAm >90 (>60 ml/min/1.73 sqM) Est GFR (CKD-EPI)NonAf >90 (>60 ml/min/1.73 sqM) Glucose 114 H (74-99) mg/dL Calcium 9.0 (8.4-10.2) mg/dL Total Bilirubin 0.5 (0.2-1.3) mg/dL AST 42 H (14-36) U/L ALT 69 H (9-52) U/L Alkaline Phosphatase 89 (38-126) U/L Total Protein 6.4 (6.3-8.2) g/dL Albumin 3.9 (3.5-5.0) g/dL HCG, Quant 329.3 mIU/mL Urine Color Urine Appearance (Clear) Urine pH (5.0-8.0) Ur Specific [place] (1.001-1.035) Urine Protein (Negative) Urine Glucose (UA) (Negative) Urine Ketones (Negative) Urine Blood (Negative) Urine Nitrite (Negative) Urine Bilirubin (Negative) Urine Urobilinogen (<2.0) mg/dL Ur Leukocyte Esterase (Negative) Blood Type Blood Type Recheck Antibody Screen Spec Expiration Date 07/20/18 07/20/18 Range/Units 17:13 17:13 WBC (3.8-10.6) k/uL RBC (3.80-5.40) m/uL Hgb (11.4-16.0) gm/dL Hct (34.0-46.0) % MCV (80.0-100.0) fL MCH (25.0-35.0) pg MCHC (31.0-37.0) g/dL RDW (11.5-15.5) % Plt Count (150-450) k/uL Neutrophils % % Lymphocytes % % Monocytes % % Eosinophils % % Basophils % % Neutrophils # (1.3-7.7) k/uL Lymphocytes # (1.0-4.8) k/uL Monocytes # (0-1.0) k/uL Eosinophils # (0-0.7) k/uL Basophils # (0-0.2) k/uL PT (9.0-12.0) sec INR (<1.2) APTT (22.0-30.0) sec Sodium (137-145) mmol/L Potassium (3.5-5.1) mmol/L Chloride (98-107) mmol/L Carbon Dioxide (22-30) mmol/L Anion Gap mmol/L BUN (7-17) mg/dL Creatinine (0.52-1.04) mg/dL Est GFR (CKD-EPI)AfAm (>60 ml/min/1.73 sqM) Est GFR (CKD-EPI)NonAf (>60 ml/min/1.73 sqM) Glucose (74-99) mg/dL Calcium (8.4-10.2) mg/dL Total Bilirubin (0.2-1.3) mg/dL AST (14-36) U/L ALT (9-52) U/L Alkaline Phosphatase (38-126) U/L Total Protein (6.3-8.2) g/dL Albumin (3.5-5.0) g/dL HCG, Quant mIU/mL Urine Color Yellow Urine Appearance Clear (Clear) Urine pH 6.0 (5.0-8.0) Ur Specific [place] 1.013 (1.001-1.035) Urine Protein Negative (Negative) Urine Glucose (UA) Negative (Negative) Urine Ketones Negative (Negative) Urine Blood Negative (Negative) Urine Nitrite Negative (Negative) Urine Bilirubin Negative (Negative) Urine Urobilinogen <2.0 (<2.0) mg/dL Ur Leukocyte Esterase Negative (Negative) Blood Type O Positive Blood Type Recheck No Antibody Screen NEGATIVE Spec Expiration Date 07/23/2018 - 2312 Disposition Clinical Impression: Elevated serum hCG, Abdominal pain Disposition: HOME SELF-CARE Condition: Good Instructions: Ectopic (DC) Additional Instructions: Return to the emergency department immediately if the pain becomes worse or there are other concerning symptoms which include but not limited to nausea/ vomiting/diarrhea, worsening abdominal pain, fever/chills. Is patient prescribed a controlled substance at d/c from ED?: No Referrals: None,Stated [Primary Care Provider] - 1-2 days Arash Tam MD [STAFF PHYSICIAN] - 1-2 days Time of Disposition: 19:50
[2018-07-20 17:26] LABS: Basophils # (A) 0.1 k/uL (0-0.2); Basophils % (A) 1 %; Eosinophils # (A) 0.2 k/uL (0-0.7); Eosinophils % (A) 2 %; HCT 41.2 % (34.0-46.0); HGB 14.6 gm/dL (11.4-16.0); Lymphocytes # (A) 1.9 k/uL (1.0-4.8); Lymphocytes % (A) 18 %; MCH 32.9 pg (25.0-35.0); MCHC 35.5 g/dL (31.0-37.0); MCV 92.8 fL (80.0-100.0); Mean Platelet Volume 7.3; Monocytes # (A) 0.6 k/uL (0-1.0); Monocytes % (A) 5 %; Neutrophils # (A) 7.8 k/uL (1.3-7.7); Neutrophils % (A) 73 %; Platelet Count 240 k/uL (150-450); RBC 4.44 m/uL (3.80-5.40); RDW 12.5 % (11.5-15.5); WBC 10.7 k/uL (3.8-10.6)
[2018-07-20 17:35] LABS: Appearance,Urine Clear (Clear); Bilirubin,Urine Negative (Negative); Blood,Urine Negative (Negative); Color,Urine Yellow; Glucose,Urine (UA) Negative (Negative); Ketones,Urine Negative (Negative); Leukocyte Esterase,Urine Negative (Negative); Nitrite,Urine Negative (Negative); Protein,Urine Negative (Negative); Specific Gravity,Urine 1.013 (1.001-1.035); Urobilinogen,Urine <2.0 mg/dL (<2.0)
[2018-07-20 17:36] LABS: ALT 69 U/L (9-52); AST 42 U/L (14-36); Albumin 3.9 g/dL (3.5-5.0); Alkaline Phosphatase 89 U/L (38-126); Anion Gap 8 mmol/L; Blood Urea Nitrogen 9 mg/dL (7-17); Carbon Dioxide 22 mmol/L (22-30); Chloride 108 mmol/L (98-107); Glucose 114 mg/dL (74-99); INR 0.9 (<1.2); Partial Thromboplastin Time 24.8 sec (22.0-30.0); Potassium 3.9 mmol/L (3.5-5.1); Prothrombin Time 9.5 sec (9.0-12.0); Sodium 138 mmol/L (137-145); Total Bilirubin 0.5 mg/dL (0.2-1.3); Total Protein 6.4 g/dL (6.3-8.2)
[2018-07-20 17:53] LABS: HCG,Quantitative Serum 329.3 mIU/mL
[2018-07-20] MEDS ORDERED: ACETAMINOPHEN TAB 325 MG TAB PO STA (18:01)
--- NOTE | 2018-07-20 18:18 | US ---
EXAMINATION TYPE: US transvaginal DATE OF EXAM: 07/20/2018 COMPARISON: US CLINICAL HISTORY: RLQ pain with a hx of ectopic, eval for torsion. EC patient with RLQ pain x 4 days with prior ectopic per patient; , LMP was unusual for June per patient; TECHNIQUE: Transvaginal (TV). Transvaginal sonographic images were medically necessary to better ass ess the following anatomy: ovaries and endometrium, as bladder was not full. Date of LMP: approximately 06/19/2018 EXAM MEASUREMENTS: Uterus: 9.3 x 6.7 x 5.7cm Endometrial Stripe: 1.1 cm Right Ovary: 3.3 x 2.0 x 2.1 cm Left Ovary: 2.0 x 2.1 x 1.2 cm 1. Uterus: Anteverted; couple of small Nabothian cysts in cervix 2. Endometrium: wnl, no IUP seen within 3. Right Ovary: multiple follicles; large thick walled cyst seen with inner hyperechoic cystic area that could be early gestational sac based on positive beta hCG of 329.3. Early gestational sac measur es 0.55cm and hyperechoic gestational sac may be decidual reaction and is too early to calculate EDC for US machine's range. 4. Left Ovary: small follicles seen Spectral, color and waveform Doppler imaging shows good arterial and venous flow within the ovaries ; there is no evidence for ovarian torsion. 5. Bilateral Adnexa: wnl 6. Posterior cul-de-sac: wnl No IUP is seen. Possible gestational sac vs. thick walled ovarian cyst is seen in right ovary with po sitive hCG today of 329.3. IMPRESSION: The uterus is empty. There is possible ectopic with a gestational sac forming a t the right ovary. This exam was discussed with ER physician at 6:15 PM.
[2018-07-20 20:32] VITALS: BP 114/69; PULSE 74; RESP 18; TEMP 98.3
== END 2018-07-20 20:35 | disposition home or self-care (01) ==
LOC: EC 15:35
DX: O99.89 Other specified diseases and conditions complicating pregnancy, childbirth and the puerperium (principal); R10.31 Right lower quadrant pain; Z32.01 Encounter for pregnancy test, result positive; O34.81 Maternal care for other abnormalities of pelvic organs, first trimester; N83.201 Unspecified ovarian cyst, right side; M54.5 Low back pain; R11.0 Nausea; O99.611 Diseases of the digestive system complicating pregnancy, first trimester; K58.0 Irritable bowel syndrome with diarrhea; O99.331 Smoking (tobacco) complicating pregnancy, first trimester; F17.200 Nicotine dependence, unspecified, uncomplicated; Z88.0 Allergy status to penicillin; Z88.1 Allergy status to other antibiotic agents; Z88.2 Allergy status to sulfonamides; Z90.49 Acquired absence of other specified parts of digestive tract; Z53.20 Procedure and treatment not carried out because of patient's decision for unspecified reasons; Z3A.00 Weeks of gestation of pregnancy not specified
CPT/HCPCS: 36415; 76830; 80053; 81003; 84702; 85025; 85610; 85730; 86850; 86900; 86901; 93975; 96360; 99284

== ENCOUNTER → 2018-07-22 | Outpatient (CLI) | payer OTHER | END | disposition home or self-care (01) | LOC: LABWHC1 15:12 | PROVIDERS: ATTEND Obstetrics & Gynecology | DX: O20.0 Threatened abortion (principal); Z3A.00 Weeks of gestation of pregnancy not specified | CPT/HCPCS: 36415; 84702 ==

== ENCOUNTER → 2018-07-25 | Outpatient (CLI) | payer OTHER ==
[2018-07-25 18:37] LABS: T4, Free (Free Thyroxine) 1.3 ng/dL (0.80-1.80)
[2018-07-25 19:00] LABS: HCG,Quantitative Serum 3742.7 mIU/mL
== END | disposition home or self-care (01) ==
LOC: LABWHC1 13:15
PROVIDERS: ATTEND Obstetrics & Gynecology
DX: R63.5 Abnormal weight gain (principal); R45.86 Emotional lability
CPT/HCPCS: 36415; 84439; 84443; 84702

== ENCOUNTER 2018-07-26 19:37 | Emergency (ER) | payer OTHER ==
[2018-07-26] MEDS ORDERED: SODIUM CHLORIDE 0.9% 1,000 ML IV ONE (21:01)
--- NOTE | 2018-07-26 21:33 | ED ---
Female Urogenital HPI - General Chief complaint: Abdominal Pain Stated complaint: poss ectopic Time Seen by Provider: 07/26/18 20:13 Source: patient, RN notes reviewed, old records reviewed Mode of arrival: ambulatory Limitations: no limitations - History of Present Illness Initial comments: This is a 37-year-old female the ER for evaluation. Patient presents today for evaluation regards to abdominal pain. Patient is known . Currently but she believes she either may have ectopic or early or threatened miscarriage. Patient states she's had crampy abdominal pain for the last week. She has multiple evaluations both in the emergency room as well as by her OB with lab draw that shows impressing and increasing beta-hCG. Patient did have continued pain today, denies bleeding -: week(s) Location: suprapubic Radiation: suprapubic Severity: mild Severity scale (1-10): 3 Quality: cramping, dull Consistency: intermittent Improves with: none Worsens with: none Patient : Yes Associated Symptoms: abdominal pain - Related Data Sexually active: Yes Home Medications Medication Instructions Recorded Confirmed No Known Home Medications 07/20/18 07/26/18 Allergies Allergy/AdvReac Type Severity Reaction Status Date / Time Cephalosporins Allergy Severe Rash/Hives Verified 07/26/18 20:46 Penicillins Allergy Severe Rash/Hives Verified 07/26/18 20:46 Sulfa (Sulfonamide Allergy Severe Rash/Hives Verified 07/26/18 20:46 Antibiotics) Review of Systems ROS Statement: Those systems with pertinent positive or pertinent negative responses have been documented in the HPI. ROS Other: All systems not noted in ROS Statement are negative. Past Medical History Past Medical History: Seizure Disorder, Thyroid Disorder Additional Past Medical History / Comment(s): hx perforated ulcer, H Pylori, last seizure 2004,colitis, hypoglycemia, thyroid nodules, History of Any Multi-Drug Resistant Organisms: None Reported Past Surgical History: Appendectomy, Cholecystectomy Additional Past Surgical History / Comment(s): D&C, pilonidal cyst, cyst removed from back, leep procedure, sx for perforated ulcer.edg/colonoscopy Past Anesthesia/Blood Transfusion Reactions: Previous Problems w/ Anesthesia Additional Past Anesthesia/Blood Transfusion Reaction / Comment(s): "shaky and low BP" Past Psychological History: Anxiety Smoking Status: Former smoker Past Alcohol Use History: None Reported Past Drug Use History: None Reported - Past Family History Brother(s) Family Medical History: Cancer General Exam Limitations: no limitations General appearance: alert, in no apparent distress Head exam: Present: atraumatic, normocephalic, normal inspection Eye exam: Present: normal appearance, PERRL, EOMI. Absent: scleral icterus, conjunctival injection, periorbital swelling ENT exam: Present: normal exam, mucous membranes moist Neck exam: Present: normal inspection. Absent: tenderness, meningismus, lymphadenopathy Respiratory exam: Present: normal lung sounds bilaterally. Absent: respiratory distress, wheezes, rales, rhonchi, stridor Cardiovascular Exam: Present: regular rate, normal rhythm, normal heart sounds. Absent: systolic murmur, diastolic murmur, rubs, gallop, clicks GI/Abdominal exam: Present: soft, normal bowel sounds. Absent: distended, tenderness, guarding, rebound, rigid Extremities exam: Present: normal inspection, full ROM, normal capillary refill. Absent: tenderness, pedal edema, joint swelling, calf tenderness Back exam: Present: normal inspection Neurological exam: Present: alert, oriented X3, CN II-XII intact Psychiatric exam: Present: normal affect, normal mood Skin exam: Present: warm, dry, intact, normal color. Absent: rash Course Vital Signs 07/26/18 07/26/18 19:55 22:07 Temperature 98.3 F Pulse Rate 89 87 Respiratory 19 18 Rate Blood Pressure 121/80 130/78 O2 Sat by Pulse 97 95 Oximetry - Reevaluation(s) Reevaluation #1: 07/26/18 23:06 Medical record, prior ER visits as well as ultrasounds are reviewed, labwork including prior beta is reviewed Medical Decision Making - Medical Decision Making 37 female the ER for evaluation patient resents ER for evaluation of abdominal pain and . Ultrasound showing positive gestational sac with clotting beta-hCG. Patient will continue to follow up with OB as she has - Lab Data Result diagrams: 07/26/18 21:46 07/26/18 21:46 Lab Results 07/26/18 07/26/18 07/26/18 Range/Units 21:46 21:46 21:46 WBC 10.1 (3.8-10.6) k/uL RBC 4.02 (3.80-5.40) m/uL Hgb 12.8 (11.4-16.0) gm/dL Hct 38.0 (34.0-46.0) % MCV 94.5 (80.0-100.0) fL MCH 31.9 (25.0-35.0) pg MCHC 33.7 (31.0-37.0) g/dL RDW 13.2 (11.5-15.5) % Plt Count 239 (150-450) k/uL Neutrophils % 69 % Lymphocytes % 21 % Monocytes % 6 % Eosinophils % 1 % Basophils % 1 % Neutrophils # 7.0 (1.3-7.7) k/uL Lymphocytes # 2.1 (1.0-4.8) k/uL Monocytes # 0.6 (0-1.0) k/uL Eosinophils # 0.1 (0-0.7) k/uL Basophils # 0.1 (0-0.2) k/uL PT 10.0 (9.0-12.0) sec INR 0.9 (<1.2) APTT 25.0 (22.0-30.0) sec Sodium 139 (137-145) mmol/L Potassium 3.7 (3.5-5.1) mmol/L Chloride 107 (98-107) mmol/L Carbon Dioxide 23 (22-30) mmol/L Anion Gap 9 mmol/L BUN 8 (7-17) mg/dL Creatinine 0.55 (0.52-1.04) mg/dL Est GFR (CKD-EPI)AfAm >90 (>60 ml/min/1.73 sqM) Est GFR (CKD-EPI)NonAf >90 (>60 ml/min/1.73 sqM) Glucose 100 H (74-99) mg/dL Calcium 9.4 (8.4-10.2) mg/dL Total Bilirubin 0.7 (0.2-1.3) mg/dL AST 52 H (14-36) U/L ALT 66 H (9-52) U/L Alkaline Phosphatase 85 (38-126) U/L Total Protein 6.1 L (6.3-8.2) g/dL Albumin 3.8 (3.5-5.0) g/dL Blood Type Blood Type Recheck Antibody Screen Spec Expiration Date 07/26/18 Range/Units 21:46 WBC (3.8-10.6) k/uL RBC (3.80-5.40) m/uL Hgb (11.4-16.0) gm/dL Hct (34.0-46.0) % MCV (80.0-100.0) fL MCH (25.0-35.0) pg MCHC (31.0-37.0) g/dL RDW (11.5-15.5) % Plt Count (150-450) k/uL Neutrophils % % Lymphocytes % % Monocytes % % Eosinophils % % Basophils % % Neutrophils # (1.3-7.7) k/uL Lymphocytes # (1.0-4.8) k/uL Monocytes # (0-1.0) k/uL Eosinophils # (0-0.7) k/uL Basophils # (0-0.2) k/uL PT (9.0-12.0) sec INR (<1.2) APTT (22.0-30.0) sec Sodium (137-145) mmol/L Potassium (3.5-5.1) mmol/L Chloride (98-107) mmol/L Carbon Dioxide (22-30) mmol/L Anion Gap mmol/L BUN (7-17) mg/dL Creatinine (0.52-1.04) mg/dL Est GFR (CKD-EPI)AfAm (>60 ml/min/1.73 sqM) Est GFR (CKD-EPI)NonAf (>60 ml/min/1.73 sqM) Glucose (74-99) mg/dL Calcium (8.4-10.2) mg/dL Total Bilirubin (0.2-1.3) mg/dL AST (14-36) U/L ALT (9-52) U/L Alkaline Phosphatase (38-126) U/L Total Protein (6.3-8.2) g/dL Albumin (3.5-5.0) g/dL Blood Type O Positive Blood Type Recheck No Antibody Screen NEGATIVE Spec Expiration Date 07/29/2018 - 2185 - Radiology Data Radiology results: report reviewed (Ultrasound pelvis and OB shows likely gestational sac), image reviewed Disposition Clinical Impression: Abdominal pain, Abdominal pain affecting Disposition: HOME SELF-CARE Condition: Good Instructions: Abdominal Pain in (ED) Is patient prescribed a controlled substance at d/c from ED?: No Referrals: None,Stated [Primary Care Provider] - 1-2 days
[2018-07-26 22:07] VITALS: RESP 18
[2018-07-26 22:08] LABS: ALT 66 U/L (9-52); AST 52 U/L (14-36); Albumin 3.8 g/dL (3.5-5.0); Alkaline Phosphatase 85 U/L (38-126); Anion Gap 9 mmol/L; Blood Urea Nitrogen 8 mg/dL (7-17); Calcium 9.4 mg/dL (8.4-10.2); Carbon Dioxide 23 mmol/L (22-30); Chloride 107 mmol/L (98-107); Glucose 100 mg/dL (74-99); Potassium 3.7 mmol/L (3.5-5.1); Sodium 139 mmol/L (137-145); Total Bilirubin 0.7 mg/dL (0.2-1.3); Total Protein 6.1 g/dL (6.3-8.2)
--- NOTE | 2018-07-26 22:17 | US ---
EXAMINATION TYPE: Transabdominal DATE OF EXAM: 10/16/17 COMPARISON: NONE CLINICAL HISTORY: pain. Right pelvic pain for 1 week. History of ectopic 2 years ago EXAM PERFORMED: Transvaginal (TV) and Transabdominal (TA) EXAM MEASUREMENTS: GESTATIONAL AGE / DATING Physician Established: Not yet established Dates by LMP: (5 weeks/3 days) EDC: 03/25/19 Dates by First Scan: no evidence of IUP on prior exam Dates by Current Scan for: GS too small to accurately date MATERNAL ANATOMY Uterus: 9.2 x 5.7 x 6.3cm Right Ovary: 3.8 x 1.9 x 2.3cm Left Ovary: 2.4 x 1.5 x 1.4cm Post CDS / Adnexa: appears wnl Presence of free fluid: no Presence of corpus luteal cyst: complex area right ovary = 2.1 x 2.1 x 1.8cm Presence of subchorionic bleed: no GESTATION / SURVEY MSD: 0.8cm too small to accurately date Yolk Sac (normal less than 6mm): 0.2cm No evidence of pole at this time Date of LMP: 06/18/18 Beta HcG (if available): Not available at this time Possible gestational sac with yolk sac identified within uterus. Unable to visualize pole at th is time. Possible early gestation? Probable corpus luteum right ovary. IMPRESSION: Small intrauterine gestational sac seen with yolk sac. The sac measures 8 mm in diameter. Follow-up e xam in 2 weeks is recommended to confirm a living fetus.
[2018-07-26 22:18] LABS: INR 0.9 (<1.2)
[2018-07-26 22:26] LABS: Basophils # (A) 0.1 k/uL (0-0.2); Basophils % (A) 1 %; Eosinophils # (A) 0.1 k/uL (0-0.7); Eosinophils % (A) 1 %; HGB 12.8 gm/dL (11.4-16.0); Lymphocytes # (A) 2.1 k/uL (1.0-4.8); Lymphocytes % (A) 21 %; MCH 31.9 pg (25.0-35.0); MCHC 33.7 g/dL (31.0-37.0); MCV 94.5 fL (80.0-100.0); Mean Platelet Volume 6.8; Monocytes # (A) 0.6 k/uL (0-1.0); Monocytes % (A) 6 %; Neutrophils % (A) 69 %; Platelet Count 239 k/uL (150-450); RBC 4.02 m/uL (3.80-5.40); RDW 13.2 % (11.5-15.5); WBC 10.1 k/uL (3.8-10.6)
[2018-07-27 00:10] VITALS: BP 100/66; PULSE 79; TEMP 98.4
== END 2018-07-27 01:05 | disposition home or self-care (01) ==
LOC: EC 19:37
DX: O99.89 Other specified diseases and conditions complicating pregnancy, childbirth and the puerperium (principal); R10.31 Right lower quadrant pain; Z87.19 Personal history of other diseases of the digestive system; Z90.49 Acquired absence of other specified parts of digestive tract; Z87.891 Personal history of nicotine dependence; Z88.1 Allergy status to other antibiotic agents; Z88.0 Allergy status to penicillin; Z88.2 Allergy status to sulfonamides; Z3A.01 Less than 8 weeks gestation of pregnancy
CPT/HCPCS: 36415; 76801; 76817; 80053; 84702; 85025; 85610; 85730; 86850; 86900; 86901; 96360; 99284

== ENCOUNTER 2018-08-24 13:44 | Emergency (ER) | payer OTHER ==
[2018-08-24 13:48] VITALS: TEMP 98.4
[2018-08-24 16:01] LABS: Basophils # (A) 0.1 k/uL (0-0.2); Basophils % (A) 1 %; Eosinophils # (A) 0.1 k/uL (0-0.7); Eosinophils % (A) 1 %; HCT 37.5 % (34.0-46.0); HGB 13.2 gm/dL (11.4-16.0); Lymphocytes # (A) 1.4 k/uL (1.0-4.8); Lymphocytes % (A) 14 %; MCH 32.9 pg (25.0-35.0); MCHC 35.1 g/dL (31.0-37.0); MCV 93.6 fL (80.0-100.0); Mean Platelet Volume 6.7; Monocytes # (A) 0.6 k/uL (0-1.0); Monocytes % (A) 6 %; Neutrophils # (A) 7.8 k/uL (1.3-7.7); Neutrophils % (A) 77 %; Platelet Count 249 k/uL (150-450); RDW 13.2 % (11.5-15.5); WBC 10.1 k/uL (3.8-10.6)
[2018-08-24 16:11] LABS: Appearance,Urine Cloudy (Clear); Bilirubin,Urine Negative (Negative); Blood,Urine Negative (Negative); Color,Urine Yellow; Glucose,Urine (UA) Negative (Negative); Ketones,Urine Negative (Negative); Leukocyte Esterase,Urine Negative (Negative); Mucus,Urine Many /hpf; Nitrite,Urine Negative (Negative); Protein,Urine Trace (Negative); Specific Gravity,Urine 1.029 (1.001-1.035); Squamous Epithelial Cell,Urine 1 /hpf (0-4)
--- NOTE | 2018-08-24 16:25 | ED ---
Female Urogenital HPI - General Chief complaint: Vaginal Bleeding Stated complaint: 9 wks /bleeding Time Seen by Provider: 08/24/18 14:20 Source: patient, RN notes reviewed, old records reviewed Mode of arrival: ambulatory Limitations: no limitations - History of Present Illness Initial comments: is a 37-year-old female presents return today with complaints of vaginal bleeding intermittently for the past week. She is currently 9 weeks . Patient is a G 10 he 6 female. Patient states that she follows with Dr. Prakash. Patient states that she's had some lower abdominal cramping as well. She reports the pain does not radiate towards her back or on either side. She denies any dysuria hematuria or changes in stools. - Related Data Home Medications Medication Instructions Recorded Confirmed Acetaminophen Tab [Tylenol Tab] 500 mg PO Q6HR PRN 08/24/18 08/24/18 Ascorbic Acid [Vitamin C] 500 mg PO DAILY 08/24/18 08/24/18 Allergies Allergy/AdvReac Type Severity Reaction Status Date / Time Cephalosporins Allergy Severe Rash/Hives Verified 08/24/18 14:29 Penicillins Allergy Severe Rash/Hives Verified 08/24/18 14:29 Sulfa (Sulfonamide Allergy Severe Rash/Hives Verified 08/24/18 14:29 Antibiotics) Review of Systems ROS Statement: Those systems with pertinent positive or pertinent negative responses have been documented in the HPI. ROS Other: All systems not noted in ROS Statement are negative. Past Medical History Past Medical History: Seizure Disorder, Thyroid Disorder Additional Past Medical History / Comment(s): hx perforated ulcer, H Pylori, last seizure 2004,colitis, hypoglycemia, thyroid nodules, History of Any Multi-Drug Resistant Organisms: None Reported Past Surgical History: Appendectomy, Cholecystectomy Additional Past Surgical History / Comment(s): D&C, pilonidal cyst, cyst removed from back, leep procedure, sx for perforated ulcer.edg/colonoscopy Past Anesthesia/Blood Transfusion Reactions: Previous Problems w/ Anesthesia Additional Past Anesthesia/Blood Transfusion Reaction / Comment(s): "shaky and low BP" Past Psychological History: Anxiety Smoking Status: Former smoker Past Alcohol Use History: None Reported Past Drug Use History: None Reported - Past Family History Brother(s) Family Medical History: Cancer General Exam - General Exam Comments Initial Comments: Appear in alert and oriented 37-year-old female. No significant distress. Limitations: no limitations General appearance: alert, in no apparent distress Head exam: Present: atraumatic, normocephalic, normal inspection Eye exam: Present: normal appearance, PERRL, EOMI. Absent: scleral icterus, conjunctival injection, periorbital swelling ENT exam: Present: normal exam, mucous membranes moist Neck exam: Present: normal inspection. Absent: tenderness, meningismus, lymphadenopathy Respiratory exam: Present: normal lung sounds bilaterally. Absent: respiratory distress, wheezes, rales, rhonchi, stridor Cardiovascular Exam: Present: regular rate, normal rhythm, normal heart sounds. Absent: systolic murmur, diastolic murmur, rubs, gallop, clicks GI/Abdominal exam: Present: soft, normal bowel sounds. Absent: distended, tenderness, guarding, rebound, rigid External exam: Absent: other By manual exam: Present: other (Patient refused pelvic exam. Stated she seeing WATCH REPAIRER APPRENTICE on Sunday.) Extremities exam: Present: normal inspection, full ROM, normal capillary refill. Absent: tenderness, pedal edema, joint swelling, calf tenderness Back exam: Present: normal inspection Neurological exam: Present: alert, oriented X3, CN II-XII intact Psychiatric exam: Present: normal affect, normal mood Skin exam: Present: warm, dry, intact, normal color. Absent: rash Course Vital Signs 08/24/18 08/24/18 13:46 17:30 Temperature 98.4 F Pulse Rate 93 61 Respiratory 20 18 Rate Blood Pressure 129/79 118/82 O2 Sat by Pulse 99 98 Oximetry Medical Decision Making - Medical Decision Making 37-year-old female female is currently 9 weeks presents emergency department today with intermittent vaginal bleeding times one week. At this time ultrasound shows viable IUP measuring 9 weeks and 3 days. Heart rate of 1 88 bpm. Patient is Rh+. HCG quantitative is not completed at this time. Patient states that she's had no further bleeding and denies any bleeding while in the ER. She refused pelvic exam. She does follow up with her WATCH REPAIRER APPRENTICE on Sunday. I discussed the Patient can repeat her hCG level on Sunday as well after she sees her PCP and WATCH REPAIRER APPRENTICE. Patient agrees to return if there is any worsening bleeding or any other alarming signs or symptoms. All questions answered and return parameters were discussed. - Lab Data Result diagrams: 08/24/18 15:50 Lab Results 08/24/18 08/24/18 08/24/18 Range/Units 15:50 15:50 15:50 WBC 10.1 (3.8-10.6) k/uL RBC 4.00 (3.80-5.40) m/uL Hgb 13.2 (11.4-16.0) gm/dL Hct 37.5 (34.0-46.0) % MCV 93.6 (80.0-100.0) fL MCH 32.9 (25.0-35.0) pg MCHC 35.1 (31.0-37.0) g/dL RDW 13.2 (11.5-15.5) % Plt Count 249 (150-450) k/uL Neutrophils % 77 % Lymphocytes % 14 % Monocytes % 6 % Eosinophils % 1 % Basophils % 1 % Neutrophils # 7.8 H (1.3-7.7) k/uL Lymphocytes # 1.4 (1.0-4.8) k/uL Monocytes # 0.6 (0-1.0) k/uL Eosinophils # 0.1 (0-0.7) k/uL Basophils # 0.1 (0-0.2) k/uL HCG, Quant 071852.0 mIU/mL Urine Color Urine Appearance (Clear) Urine pH (5.0-8.0) Ur Specific [place] (1.001-1.035) Urine Protein (Negative) Urine Glucose (UA) (Negative) Urine Ketones (Negative) Urine Blood (Negative) Urine Nitrite (Negative) Urine Bilirubin (Negative) Urine Urobilinogen (<2.0) mg/dL Ur Leukocyte Esterase (Negative) Urine WBC (0-5) /hpf Ur Squamous Epith Cells (0-4) /hpf Urine Mucus (None) /hpf Blood Type O Positive Blood Type Recheck No 08/24/18 Range/Units 15:50 WBC (3.8-10.6) k/uL RBC (3.80-5.40) m/uL Hgb (11.4-16.0) gm/dL Hct (34.0-46.0) % MCV (80.0-100.0) fL MCH (25.0-35.0) pg MCHC (31.0-37.0) g/dL RDW (11.5-15.5) % Plt Count (150-450) k/uL Neutrophils % % Lymphocytes % % Monocytes % % Eosinophils % % Basophils % % Neutrophils # (1.3-7.7) k/uL Lymphocytes # (1.0-4.8) k/uL Monocytes # (0-1.0) k/uL Eosinophils # (0-0.7) k/uL Basophils # (0-0.2) k/uL HCG, Quant mIU/mL Urine Color Yellow Urine Appearance Cloudy H (Clear) Urine pH 7.0 (5.0-8.0) Ur Specific [place] 1.029 (1.001-1.035) Urine Protein Trace H (Negative) Urine Glucose (UA) Negative (Negative) Urine Ketones Negative (Negative) Urine Blood Negative (Negative) Urine Nitrite Negative (Negative) Urine Bilirubin Negative (Negative) Urine Urobilinogen 3.0 (<2.0) mg/dL Ur Leukocyte Esterase Negative (Negative) Urine WBC 1 (0-5) /hpf Ur Squamous Epith Cells 1 (0-4) /hpf Urine Mucus Many H (None) /hpf Blood Type Blood Type Recheck - Radiology Data Radiology results: report reviewed Single IUP measuring 9 weeks and 3 days. heart rate is noted to be slightly above normal limits measuring 1 88 bpm. Disposition Clinical Impression: 9 weeks gestation of , History of vaginal bleeding Disposition: HOME SELF-CARE Condition: Good Instructions (If sedation given, give patient instructions): Threatened Miscarriage (ED) Additional Instructions: Patient has a close follow-up with primary care physician. No heavy lifting. Patient should've pelvic rest, no intercourse. Return to emergency department if any alarming signs or symptoms occur. Is patient prescribed a controlled substance at d/c from ED?: No Referrals: None,Stated [Primary Care Provider] - 1-2 days Arash Tam MD [STAFF PHYSICIAN] - 1-2 days Time of Disposition: 17:36
--- NOTE | 2018-08-24 16:35 | US ---
EXAMINATION TYPE: Transabdominal DATE OF EXAM: 10/16/17 COMPARISON: NONE CLINICAL HISTORY: Pain. on and off bleeding, G10,P6 EXAM PERFORMED: OBTA EXAM MEASUREMENTS: GESTATIONAL AGE / DATING Physician Established: (9 weeks/3 days) EDC: 03/26/2019 Dates by LMP: LMP unknown Dates by First Scan: too early to date at previous exam Dates by Current Scan for: (9 weeks/3 days) EDC: 03/26/2019 MATERNAL ANATOMY Uterus: 11.1 x 7.2 x 7.1cm Right Ovary: 3.1 x 1.8 x 1.7cm Left Ovary: 2.6 x 2.0 x 1.9cm Post CDS / Adnexa: wnl Presence of free fluid: no Presence of corpus luteal cyst: not seen Presence of subchorionic bleed: no GESTATION / SURVEY CRL: 2.6cm (9 weeks/3 days) MSD: wnl Yolk Sac (normal less than 6mm): 0.4cm Heart Rate: 188 bpm Rhythm: Normal IUP: Live IUP Date of LMP: unknown IMPRESSION: Single live intrauterine with a sonographic age of 9 weeks and 3 days and estimated date of delivery of 03/26/2019. No subchorionic hemorrhage or implantation bleed is identified. heart r ate is noted to be slightly above normal limits measuring 188 bpm.
[2018-08-24 18:03] VITALS: BP 118/82; PULSE 61; RESP 18
== END 2018-08-24 17:59 | disposition home or self-care (01) ==
LOC: EC 13:44
DX: O09.891 Supervision of other high risk pregnancies, first trimester (principal); O99.89 Other specified diseases and conditions complicating pregnancy, childbirth and the puerperium; R10.30 Lower abdominal pain, unspecified; Z87.59 Personal history of other complications of pregnancy, childbirth and the puerperium; Z67.90 Unspecified blood type, Rh positive; Z87.891 Personal history of nicotine dependence; Z88.0 Allergy status to penicillin; Z88.1 Allergy status to other antibiotic agents; Z88.2 Allergy status to sulfonamides; Z90.49 Acquired absence of other specified parts of digestive tract; Z98.890 Other specified postprocedural states; Z53.20 Procedure and treatment not carried out because of patient's decision for unspecified reasons; Z3A.09 9 weeks gestation of pregnancy
CPT/HCPCS: 36415; 76801; 81001; 84702; 85025; 86900; 86901; 99284

== ENCOUNTER → 2018-09-19 | Outpatient (CLI) | payer OTHER ==
--- NOTE | 2018-09-19 10:54 | US ---
EXAMINATION TYPE: US abdomen comp/pelvis limited DATE OF EXAM: 09/19/2018 COMPARISON: NONE CLINICAL HISTORY: R10.12 Left upper quadrant pain. incidental finding demise EXAM MEASUREMENTS: Liver Length: 16.3 cm Gallbladder Wall: Surgically absent CBD: 0.4 cm Spleen: 12.5 cm Right Kidney: 12.0 x 3.7 x 4.8 cm Left Kidney: 11.3 x 4.1 x 3.9 cm Post Void Residual: 17.6 mL Pancreas: tail obscured by bowel gas Liver: small cyst rt lobe 0.6 x 0.7 x 0.7 cm Gallbladder: Surgically absent CBD: wnl Spleen: Unremarkable Right Kidney: No hydronephrosis or masses seen Left Kidney: No hydronephrosis or masses seen Upper IVC: wnl Abd Aorta: wnl Bladder: wnl Bilateral Jets Seen Yes Normal Post Void Residual (normal less than 50ml) Yes The uterus is gravid with a fetus demonstrating a crown-rump length of 4.77 cm corresponding to a son ographic age of 11 weeks and 4 days. heart rate was attempted to be demonstrated by 2 separate technologists with no heart tone identified. Color Doppler analysis is negative. IMPRESSION: 1. demise. Absence of heart rate was confirmed by 2 separate technologists at 2 separate points in time. Finding was communicated with the patient's physician by the photonic laboratory technician directly aft er the examination. 2. Subcentimeter right hepatic lobe cyst.
== END | disposition home or self-care (01) ==
LOC: RADUSWWP 09:46
PROVIDERS: ATTEND Family Medicine
DX: O36.4XX0 Maternal care for intrauterine death, not applicable or unspecified (principal); O26.611 Liver and biliary tract disorders in pregnancy, first trimester; Z3A.11 11 weeks gestation of pregnancy
CPT/HCPCS: 76700; 76857

== ENCOUNTER → 2018-09-19 | Outpatient (CLI) | payer OTHER ==
--- NOTE | 2018-09-19 11:40 | US ---
EXAMINATION TYPE: Transabdominal DATE OF EXAM: 09/19/2018 11:17 AM COMPARISON: Abdominal ultrasound of the same date CLINICAL HISTORY: Bleeding/Spotting, Abdominal pain EXAM PERFORMED: Transabdominal (TA) EXAM MEASUREMENTS: GESTATIONAL AGE / DATING Physician Established: unknown Dates by LMP: (13 weeks/1 days) EDC: 03/26/2019 Dates by First Scan: (12 weeks/3 days) EDC: 03/26/2019 Dates by Current Scan for: (12 weeks/2 days) EDC: 04/01/2019 MATERNAL ANATOMY Uterus: 12.1 x 5.8 x 10.0 cm Right Ovary: 2.5 x 1.6 x 2.5 Left Ovary: not seen Post CDS / Adnexa: wnl Presence of free fluid: wnl Presence of corpus luteal cyst: no Presence of subchorionic bleed: no GESTATION / SURVEY CRL: 5.7 (12 weeks/2 days) Heart Rate: not seen bpm Rhythm: no heart beat IUP: Demise IMPRESSION: demise as documented on the abdominal ultrasound of 09/19/2018. Additional imaging of the pelvis confirms no heart rate. Findings were previously called to Lucian at Dr. Tam's office by Gertrude Nix at 11:00. The patient was instructed to return to the physicians office. PRESTON
== END | disposition home or self-care (01) ==
LOC: RADUSWWP 11:03
PROVIDERS: ATTEND Obstetrics & Gynecology
DX: O36.4XX0 Maternal care for intrauterine death, not applicable or unspecified (principal); Z3A.12 12 weeks gestation of pregnancy
CPT/HCPCS: 76801

== ENCOUNTER → 2018-09-19 | Outpatient (CLI) | payer OTHER ==
[2018-09-19 15:43] LABS: Basophils % (A) 1 %; Eosinophils # (A) 0.1 k/uL (0-0.7); Eosinophils % (A) 1 %; HCT 38.3 % (34.0-46.0); HGB 13.2 gm/dL (11.4-16.0); Lymphocytes # (A) 1.1 k/uL (1.0-4.8); Lymphocytes % (A) 12 %; MCH 32.9 pg (25.0-35.0); MCHC 34.4 g/dL (31.0-37.0); MCV 95.7 fL (80.0-100.0); Mean Platelet Volume 6.8; Monocytes # (A) 0.4 k/uL (0-1.0); Monocytes % (A) 4 %; Neutrophils # (A) 7.4 k/uL (1.3-7.7); Neutrophils % (A) 81 %; Platelet Count 224 k/uL (150-450); RDW 13.6 % (11.5-15.5); WBC 9.1 k/uL (3.8-10.6)
== END | disposition home or self-care (01) ==
LOC: LABPAT 14:35
PROVIDERS: ATTEND Obstetrics & Gynecology
DX: Z01.812 Encounter for preprocedural laboratory examination (principal); O03.9 Complete or unspecified spontaneous abortion without complication
CPT/HCPCS: 36415; 85025

== ENCOUNTER 2018-09-20 08:01 | Day surgery (SDC) | payer OTHER ==
[2018-09-19 14:18] VITALS: BMI 33.0
[~2018-09-20 08:01] MED LIST changes: +Pre Op ABX Message 1 EACH MISC MISCELLANE ONE; -SODIUM CHLORIDE 0.9% 1,000 ML BAG ONE
[2018-09-20] MEDS ORDERED: LIDOCAINE 1% 20 ML VIAL (10MG/ML) FOR IV START INTRADERMA ONE (08:35)
[2018-09-20] MEDS ORDERED: LACTATED RINGERS 1,000 ML IV ONE ×3 (08:35→09:51)
[2018-09-20] MEDS ORDERED: ONDANSETRON 4 MG/2 ML VIAL IVP ONE (08:39)
[2018-09-20] MEDS ORDERED: SCOPOLAMINE 1.5MG/72HR PATCH TRANSDERM ONE (08:39)
[2018-09-20] MEDS ORDERED: DEXAMETHASONE SOD PHOSPHATE 10 MG/ML 1 ML VIAL IV ONE (08:39)
[2018-09-20] MEDS ORDERED: LACTATED RINGERS 1,000 ML IV SCH ×2 (08:45→09:30)
[2018-09-20] MEDS ORDERED: MIDAZOLAM 2 MG/2 ML VIAL IVP ONE (08:47)
[2018-09-20] MEDS ORDERED: SUCCINYLCHOLINE CHLORIDE 100 MG/5 ML SYR IV ONE (09:17)
[2018-09-20] MEDS ORDERED: LIDOCAINE 1% INJ 10MG/ML (20 ML MDV) ONE (09:17)
[2018-09-20] MEDS ORDERED: PROPOFOL 10 MG/ML 20 ML VIAL IV ONE (09:17)
[2018-09-20] MEDS ORDERED: KETOROLAC 30 MG/ML 1 ML VIAL ONE (09:17)
[2018-09-20] MEDS ORDERED: Acetaminophen-Codeine 300-30mg TAB PO PRN ×2 (09:23)
[2018-09-20] MEDS ORDERED: SIMETHICONE 80 MG CHEWABLE PO PRN (09:23)
[2018-09-20] MEDS ORDERED: KETOROLAC 30 MG/ML 1 ML VIAL IVP PRN (09:23)
[2018-09-20] MEDS ORDERED: ONDANSETRON 4 MG/2 ML VIAL IVP PRN (09:23)
[2018-09-20] MEDS ORDERED: METOCLOPRAMIDE 5 MG/ML 2 ML VIAL IVP PRN (09:23)
[2018-09-20] MEDS ORDERED: IBUPROFEN 600 MG TAB PO PRN (09:23)
[2018-09-20] MEDS ORDERED: diphenhydrAMINE 50 MG/ML 1 ML VIAL IVP PRN (09:23)
--- NOTE | 2018-09-20 09:49 | P.OP ---
Date of Procedure: 09/20/18 Preoperative Diagnosis: #1. 11+ weeks missed Postoperative Diagnosis: Same Procedure(s) Performed: #1. Dilation and aspiration curettage Anesthesia: BRET Surgeon: Arash Tam Estimated Blood Loss (ml): 300 IV fluids (ml): 800 Urine output (ml): 30 Pathology: other (Intrauterine contents) Condition: stable Disposition: PACU Operative Findings: Preoperative pelvic examination demonstrated a roughly 10-11 week size uterus in the midplane. Ultrasound on separate occasions had demonstrated lack of heart tones. Intraoperatively, the uterus sounded to approximately 12 cm. A #9 suction curette was utilized and tissue seen passing through the tubing on several occasions. The sharp curettage minimal tissue was produced in the typical gritty texture was encountered. There was appreciable shrinking of the endometrial cavity from the beginning of the procedure to the end. Description of Procedure: The patient was prepped and draped in usual fashion after general endotracheal anesthesia was administered by the anesthesiologist. A weighted speculum was placed and the bladder drained of approximately 30 mL of clear cale urine. The anterior lip of the cervix was grasped with single-tooth tenaculum and uterus sounded to 12 cm as noted above. Serial dilation was carried out to admit a #9 curved aspiration curet which was placed to the fundus and suction applied. After adequate suction had been built, so thorough circumferential suction curettage was carried out from the fundus to the cervix with tissue clearly seen passing through the tubing. Approximately 3-4 more passes were made at which time still small amounts of tissue were seen passing through the tubing. The specimen reservoir was replaced and suction was no longer being built and one more pass made. There was no tissue seen passing at this time. The suction curet was replaced with a sharp curette was utilized to thoroughly and circumferentially curet the endometrial cavity with a small amount of decidual appearing tissue being produced but the typical gritty texture felt throughout. One last pass was made with the suction curet which time no tissue was seen and the uterus was significantly smaller than at the onset of the procedure. All instrumentation was removed. One point of bleeding at one of the tenaculum sites was made hemostatic with pressure. Estimated blood loss for the entire case was approximately 300 mL. There were no complications. All sponge, instrument, and needle counts were correct. The patient tolerated the procedure well and proceeded to the recovery room in stable condition.
[2018-09-20] MEDS: HYDROmorphone 0.5 MG/0.5 ML SYRINGE IVP PRN ×4 (09:55→10:21)
[2018-09-20 10:00] VITALS: TEMP 97.9
[2018-09-20] MEDS: MEPERIDINE 50 MG/ML SYRINGE IVP ONE ×2 (10:29→10:38)
[2018-09-20 10:57] VITALS: RESP 16
[2018-09-20 12:30] VITALS: BP 101/65; PULSE 86
== END 2018-09-20 13:05 | disposition home or self-care (01) ==
LOC: OR 08:01
PROVIDERS: ATTEND Obstetrics & Gynecology
DX: O02.1 Missed abortion (principal); Z88.1 Allergy status to other antibiotic agents; Z88.0 Allergy status to penicillin; Z88.2 Allergy status to sulfonamides; Z87.891 Personal history of nicotine dependence
CPT/HCPCS: 86900; 86901; 88305; 86850; 59820; J2250; J1200; J1100; J2175; J2405; J2001; J1885; J0330; J2704; J1170

== ENCOUNTER 2018-11-07 11:28 | Day surgery (SDC) | payer OTHER ==
[2018-11-04 16:02] VITALS: BMI 33.0
[~2018-11-07 11:28] MED LIST changes: +LACTATED RINGERS 1,000 ML IV SCH; +LIDOCAINE 1% 20 ML VIAL (10MG/ML) FOR IV START INTRADERMA PRN; -Pre Op ABX Message 1 EACH MISC MISCELLANE ONE
[2018-11-07 11:44] VITALS: TEMP 98.2
[2018-11-07] MEDS ORDERED: MIDAZOLAM (PF) 2 MG/2 ML VIAL IV ONE (12:01)
[2018-11-07] MEDS ORDERED: PROPOFOL 10 MG/ML 20 ML VIAL IV ONE (13:50)
[2018-11-07] MEDS ORDERED: GLYCOPYRROLATE 0.2 MG/ML 2 ML VIAL ONE (13:50)
[2018-11-07] MEDS ORDERED: LIDOCAINE 1% INJ 10MG/ML (20 ML MDV) ONE (13:50)
[2018-11-07 14:22] VITALS: BP 117/77
--- NOTE | 2018-11-07 14:23 | P.PCN ---
Date of Procedure: 11/07/18 Description of Procedure: BRIEF HISTORY: 37-year-old female who is seen after outpatient consultation for complaints of abdominal pain. The patient has diagnosis of IBS diarrhea predominant is been seen in the past for complaints of abdominal pain and loose stool. Currently she reports severe epigastric abdominal pain not improved on twice daily PPI therapy. She also reports a previous history of Helicobacter pylori. PROCEDURE PERFORMED: Esophagogastroduodenoscopy with biopsy. PREOPERATIVE DIAGNOSIS: Epigastric abdominal pain, GERD. ESTIMATED BLOOD LOSS: Minimal. IV sedation per anesthesia. PROCEDURE: After informed consent was obtained, the patient was brought into the endoscopy unit. IV sedation was administered by Anesthesia under continuous monitoring. Initially the Olympus GIF-190 video endoscope was inserted into the mouth. Esophagus intubated without any difficulty. It was gradually advanced into the stomach and duodenum and carefully examined. The bulb and the second part of the duodenum appeared grossly normal except for some mild scattered erythema suggestive of mild duodenitis with biopsies taken. The scope at this time was withdrawn to the stomach, adequately insufflated with air, and upon careful examination, mucosa of the antrum, body, cardia and the fundus appeared grossly normal except for some mild scattered erythema in the antrum and body, biopsies taken of the antrum and body. The scope was then withdrawn into the esophagus. The GE junction was located at 35 cm from the incisors. The esophagus appeared normal. There were no erosions or ulcerations seen and the patient tolerated the procedure well. IMPRESSION: 1. Mild duodenitis, biopsied. 2. Mild gastritis antrum and body, biopsied. RECOMMENDATIONS: The findings of this examination were discussed with the patient. Continue twice daily omeprazole therapy. Follow up with gastroenterology as previously scheduled. Await pathology from biopsies. Further recommendations pending findings of biopsies.
[2018-11-07 14:44] VITALS: PULSE 61; RESP 18
== END 2018-11-07 15:10 | disposition home or self-care (01) ==
LOC: ORWHC2ENDO 11:28
PROVIDERS: ATTEND Internal Medicine
DX: K29.60 Other gastritis without bleeding (principal); B96.81 Helicobacter pylori [H. pylori] as the cause of diseases classified elsewhere; K29.80 Duodenitis without bleeding; K31.89 Other diseases of stomach and duodenum; K58.0 Irritable bowel syndrome with diarrhea; Z86.19 Personal history of other infectious and parasitic diseases; K21.9 Gastro-esophageal reflux disease without esophagitis; G43.909 Migraine, unspecified, not intractable, without status migrainosus; E07.9 Disorder of thyroid, unspecified; Z87.891 Personal history of nicotine dependence; Z79.1 Long term (current) use of non-steroidal anti-inflammatories (NSAID); Z79.899 Other long term (current) drug therapy; Z88.1 Allergy status to other antibiotic agents; Z88.0 Allergy status to penicillin; Z88.2 Allergy status to sulfonamides
CPT/HCPCS: 81025; 88305; 88342; 43239; J2001; J2704; J2250

== ENCOUNTER → 2019-02-03 | Outpatient (CLI) | payer OTHER ==
--- NOTE | 2019-02-04 10:00 | US ---
EXAMINATION TYPE: US thyroid st tissue head/neck DATE OF EXAM: 02/03/2019 COMPARISON: 06/14/2016 CLINICAL HISTORY: 38-year-old female E04.1 Thyroid nodule. TECHNIQUE: Multiple sonographic images of the thyroid gland are obtained. FINDINGS: GLAND SIZE: Right Lobe: 5.8 x 2.3 x 2.0 cm Overall Parenchyma: homogenous Left Lobe: 5.2 x 1.9 x 1.8 cm Overall Parenchyma: heterogeneous Isthmus Thickness: 0.3 cm NODULES RIGHT: # of nodules measured on right: 2 1. 1.8 X 1.6 x 1.1 cm mixed, primarily solid nodule at the lower pole with well-defined margins. Th is nodule is wider than tall and shows intranodular vascularity. Prior size: 1.8 X 1.6 x 1.1 cm 2. 7 x 6 x 5 mm mixed, primarily cystic nodule at the mid pole with well-defined margins. This nodul e is wider than tall and shows no intranodular vascularity. Prior size: 7 x 5 x 4 mm LEFT: # of nodules measured on left: 0 COLD STOR[employer] SUPERINTENDENT NOTES: Bilateral neck scanned, no evidence of lymphadenopathy, no masses, no fluid collec tions. IMPRESSION: Borderline thyromegaly with redemonstration of 2 nodules on the right. The dominant nodule is primari ly solid measuring up to 1.8 cm and remains unchanged. The smaller 7 mm nodule is predominantly cysti c.
== END | disposition home or self-care (01) ==
LOC: RADUSWWP 15:49
PROVIDERS: ATTEND Family Medicine
DX: E04.1 Nontoxic single thyroid nodule (principal)
CPT/HCPCS: 76536

== ENCOUNTER → 2019-02-05 | Outpatient (CLI) | payer OTHER | END | disposition home or self-care (01) | LOC: LABWHC1 16:54 | PROVIDERS: ATTEND Obstetrics & Gynecology | DX: O20.0 Threatened abortion (principal) | CPT/HCPCS: 36415; 84702 ==

== ENCOUNTER 2019-02-06 17:09 | Emergency (ER) | payer OTHER ==
[2019-02-06 18:19] LABS: ALT 90 U/L (9-52); AST 49 U/L (14-36); African American GFR (CKD) >90 (>60 ml/min/1.73 sqM); Alkaline Phosphatase 76 U/L (38-126); Anion Gap 8 mmol/L; Blood Urea Nitrogen 13 mg/dL (7-17); Calcium 9.4 mg/dL (8.4-10.2); Carbon Dioxide 25 mmol/L (22-30); Chloride 105 mmol/L (98-107); Glucose 105 mg/dL (74-99); Sodium 138 mmol/L (137-145); Total Bilirubin 0.5 mg/dL (0.2-1.3); Total Protein 6.5 g/dL (6.3-8.2)
[2019-02-06 18:31] LABS: INR 0.9 (<1.2); Partial Thromboplastin Time 25.3 sec (22.0-30.0); Prothrombin Time 9.6 sec (9.0-12.0)
[2019-02-06 18:35] LABS: HCG,Quantitative Serum 3126.5 mIU/mL
[2019-02-06 18:50] LABS: Basophils # (A) 0.1 k/uL (0-0.2); Basophils % (A) 1 %; Eosinophils # (A) 0.1 k/uL (0-0.7); Eosinophils % (A) 1 %; HCT 38.4 % (34.0-46.0); HGB 13.2 gm/dL (11.4-16.0); Lymphocytes # (A) 1.6 k/uL (1.0-4.8); Lymphocytes % (A) 17 %; MCH 32.3 pg (25.0-35.0); MCHC 34.3 g/dL (31.0-37.0); Mean Platelet Volume 7.8; Monocytes # (A) 0.6 k/uL (0-1.0); Monocytes % (A) 6 %; Neutrophils # (A) 6.7 k/uL (1.3-7.7); Neutrophils % (A) 73 %; Platelet Count 264 k/uL (150-450); RBC 4.08 m/uL (3.80-5.40); RDW 15.1 % (11.5-15.5); WBC 9.2 k/uL (3.8-10.6)
--- NOTE | 2019-02-06 19:51 | US ---
EXAMINATION TYPE: Transabdominal DATE OF EXAM: 02/06/2019 7:37 PM COMPARISON: US CLINICAL HISTORY: pain. Pelvic pain per order. Vaginal bleeding x couple hours. Hx ovarian cyst. D an crow C. LEEP. Previous smoker. A 1. EXAM PERFORMED: Transvaginal (TV) and Transabdominal (TA) EXAM MEASUREMENTS: GESTATIONAL AGE / DATING Physician Established: Not yet established Dates by LMP: (6 weeks/3 days) EDC: 09/29/2019 Dates by First Scan: This is first scan Dates by Current Scan for: No CRL measured. Possible gestational sac out of range. MATERNAL ANATOMY Uterus: 10.0 x 6.8 x 5.8 cm. Right Ovary: 4.1 x 2.5 x 2.8 cm. Left Ovary: not seen Post CDS / Adnexa: appears wnl Presence of free fluid: none seen Presence of corpus luteal cyst: none seen Presence of subchorionic bleed: none seen GESTATION / SURVEY CRL: No pole seen at this time MSD: 0.73 cm. OOR. Yolk Sac (normal less than 6mm): not seen IUP: Only possible gestational sac seen at this time Date of LMP: 12/23/2018 Beta HcG (if available): 3,126.5 IMPRESSION: Possible 7 mm intrauterine gestational sac. Follow-up recommended in 14 days if clinically indicated. No evidence of ectopic .
[2019-02-06 20:02] LABS: Appearance,Urine Clear (Clear); Bilirubin,Urine Negative (Negative); Blood,Urine Moderate (Negative); Color,Urine Light Yellow; Glucose,Urine (UA) Negative (Negative); Ketones,Urine Negative (Negative); Leukocyte Esterase,Urine Negative (Negative); Mucus,Urine Rare /hpf; Nitrite,Urine Negative (Negative); PH, Urine 5.5 (5.0-8.0); Protein,Urine Negative (Negative); RBC,Urine 1 /hpf (0-5); Specific Gravity,Urine 1.019 (1.001-1.035); Squamous Epithelial Cell,Urine 2 /hpf (0-4); Urobilinogen,Urine <2.0 mg/dL (<2.0)
--- NOTE | 2019-02-06 20:14 | ED ---
Abdominal Pain HPI - General Chief Complaint: Abdominal Pain Stated Complaint: Vaginal bleeding Time Seen by Provider: 02/06/19 17:19 Source: patient Mode of arrival: ambulatory Limitations: no limitations - History of Present Illness Initial Comments: Patient is a 38-year-old female who is who comes to the emergency room with reported vaginal bleeding. She states she is approximately 5 weeks . Earlier today she was having intercourse with her boyfriend. She started having a moderate amount of bright red bleeding afterwards. She sat urated one pad of blood and since then, the bleeding has stopped. Also admits to mild lower abdominal cramping. She states that she just saw her OB yesterday and laboratory studies performed. Her has been been progressing as expected. She has had an ultrasound however states that the results were inconclusive and there was no heart beat identified. She denies any abnormal vaginal discharge. No changes in her urination include hematuria, dysuria or difficulty voiding. Denies any melanotic stools or hematochezia. No diarrhea or constipation. She has had one previous spontaneous miscarriage at 14 weeks. No fevers or chills. No abdominal trauma. There are no other alleviating, precipitating or modifying factors - Related Data Home Medications Medication Instructions Recorded Confirmed Omeprazole [PriLOSEC] 20 mg PO AC-BID 11/04/18 02/06/19 Allergies Allergy/AdvReac Type Severity Reaction Status Date / Time Cephalosporins Allergy Severe Rash/Hives Verified 02/13/19 16:36 Penicillins Allergy Severe Rash/Hives Verified 02/13/19 16:36 Sulfa (Sulfonamide Allergy Severe Rash/Hives Verified 02/13/19 16:36 Antibiotics) Review of Systems ROS Statement: Those systems with pertinent positive or pertinent negative responses have been documented in the HPI. ROS Other: All systems not noted in ROS Statement are negative. Past Medical History Past Medical History: GERD/Reflux, Seizure Disorder, Thyroid Disorder Additional Past Medical History / Comment(s): recent miscarriage in September 2018, hx perforated ulcer, H Pylori, last seizure 2004, colitis, hypoglycemia, thyroid nodules, migraines, palpitations, pain left side of stomach History of Any Multi-Drug Resistant Organisms: None Reported Past Surgical History: Appendectomy, Cholecystectomy Additional Past Surgical History / Comment(s): D&C, pilonidal cyst, cyst removed from upper back, leep procedure, sx for perforated ulcer, edg/colonoscopy, recent D & C beginning of September Past Anesthesia/Blood Transfusion Reactions: Previous Problems w/ Anesthesia Additional Past Anesthesia/Blood Transfusion Reaction / Comment(s): "shaky and low BP" Past Psychological History: Anxiety Smoking Status: Former smoker Past Alcohol Use History: None Reported Past Drug Use History: None Reported - Past Family History Brother(s) Family Medical History: Cancer General Exam Limitations: no limitations General appearance: alert, in no apparent distress Head exam: Present: atraumatic, normocephalic, normal inspection Eye exam: Present: normal appearance, PERRL, EOMI. Absent: scleral icterus, conjunctival injection, periorbital swelling ENT exam: Present: normal exam, mucous membranes moist Neck exam: Present: normal inspection. Absent: tenderness, meningismus, l ymphadenopathy Respiratory exam: Present: normal lung sounds bilaterally. Absent: respiratory distress, wheezes, rales, rhonchi, stridor Cardiovascular Exam: Present: regular rate, normal rhythm, normal heart sounds. Absent: systolic murmur, diastolic murmur, rubs, gallop, clicks GI/Abdominal exam: Present: soft, normal bowel sounds. Absent: distended, tenderness, guarding, rebound, rigid Extremities exam: Present: normal inspection, full ROM, normal capillary refill. Absent: tenderness, pedal edema, joint swelling, calf tenderness Back exam: Present: normal inspection Neurological exam: Present: alert, oriented X3, CN II-XII intact Psychiatric exam: Present: normal affect, normal mood Skin exam: Present: warm, dry, intact, normal color. Absent: rash Course Vital Signs 02/06/19 02/06/19 02/06/19 17:11 19:50 20:23 Temperature 98.5 F 98.1 F 97.9 F Pulse Rate 76 74 96 Respiratory 16 16 17 Rate Blood Pressure 116/67 112/69 114/69 O2 Sat by Pulse 97 98 96 Oximetry Medical Decision Making - Medical Decision Making Upon arrival the patient was placed into room 25. She was hooked up to continuous pulse ox and cardiac monitoring. IV is established. Laboratory studies are conducted and the patient does provide a urine sample. An ultrasound was performed. Upon return of the results, they're discuss the patient. She does present to the emergency department reporting lower abdominal cramping and bleeding. Patient does have a positive beta hCG at 3126 however her beta previously was 3983. Ultrasound demonstrates a gestational sac however no pole. I did discuss these results with the patient. I recommended a pelvic exam however the patient refused stating that she is no longer bleeding. I did discuss the risks of an incomplete exam. The patient was capable of making her own decisions and continue to refuse. I informed the patient that I do believe she is suffering from a miscarriage at this time due to the fall in the beta hcg level. She must will follow up with her HIDE EXAMINER within 2 days and have repeat beta hCG testing performed. She may need a repeat ultrasound or further intervention. The patient understood this. Return parameters were discussed with the patient. The patient was then discharged home in stable condition - Differential Diagnosis incomplete miscarriage, spontanous miscarriage, vaginal bleed in - Lab Data Result diagrams: 02/06/19 17:54 02/06/19 17:54 Lab Results 02/06/19 02/06/19 02/06/19 Range/Units 17:54 17:54 17:54 WBC 9.2 (3.8-10.6) k/uL RBC 4.08 (3.80-5.40) m/uL Hgb 13.2 (11.4-16.0) gm/dL Hct 38.4 (34.0-46.0) % MCV 94.0 (80.0-100.0) fL MCH 32.3 (25.0-35.0) pg MCHC 34.3 (31.0-37.0) g/dL RDW 15.1 (11.5-15.5) % Plt Count 264 (150-450) k/uL Neutrophils % 73 % Lymphocytes % 17 % Monocytes % 6 % Eosinophils % 1 % Basophils % 1 % Neutrophils # 6.7 (1.3-7.7) k/uL Lymphocytes # 1.6 (1.0-4.8) k/uL Monocytes # 0.6 (0-1.0) k/uL Eosinophils # 0.1 (0-0.7) k/uL Basophils # 0.1 (0-0.2) k/uL PT 9.6 (9.0-12.0) sec INR 0.9 (<1.2) APTT 25.3 (22.0-30.0) sec Sodium 138 (137-145) mmol/L Potassium 4.0 (3.5-5.1) mmol/L Chloride 105 (98-107) mmol/L Carbon Dioxide 25 (22-30) mmol/L Anion Gap 8 mmol/L BUN 13 (7-17) mg/dL Creatinine 0.58 (0.52-1.04) mg/dL Est GFR (CKD-EPI)AfAm >90 (>60 ml/min/1.73 sqM) Est GFR (CKD-EPI)NonAf >90 (>60 ml/min/1.73 sqM) Glucose 105 H (74-99) mg/dL Calcium 9.4 (8.4-10.2) mg/dL Total Bilirubin 0.5 (0.2-1.3) mg/dL AST 49 H (14-36) U/L ALT 90 H (9-52) U/L Alkaline Phosphatase 76 (38-126) U/L Total Protein 6.5 (6.3-8.2) g/dL Albumin 4.0 (3.5-5.0) g/dL HCG, Quant 3126.5 mIU/mL Urine Color Urine Appearance (Clear) Urine pH (5.0-8.0) Ur Specific Glide (1.001-1.035) Urine Protein (Negative) Urine Glucose (UA) (Negative) Urine Ketones (Negative) Urine Blood (Negative) Urine Nitrite (Negative) Urine Bilirubin (Negative) Urine Urobilinogen (<2.0) mg/dL Ur Leukocyte Esterase (Negative) Urine RBC (0-5) /hpf Urine WBC (0-5) /hpf Ur Squamous Epith Cells (0-4) /hpf Urine Mucus (None) /hpf Blood Type Blood Type Recheck 02/06/19 02/06/19 Range/Units 17:54 19:50 WBC (3.8-10.6) k/uL RBC (3.80-5.40) m/uL Hgb (11.4-16.0) gm/dL Hct (34.0-46.0) % MCV (80.0-100.0) fL MCH (25.0-35.0) pg MCHC (31.0-37.0) g/dL RDW (11.5-15.5) % Plt Count (150-450) k/uL Neutrophils % % Lymphocytes % % Monocytes % % Eosinophils % % Basophils % % Neutrophils # (1.3-7.7) k/uL Lymphocytes # (1.0-4.8) k/uL Monocytes # (0-1.0) k/uL Eosinophils # (0-0.7) k/uL Basophils # (0-0.2) k/uL PT (9.0-12.0) sec INR (<1.2) APTT (22.0-30.0) sec Sodium (137-145) mmol/L Potassium (3.5-5.1) mmol/L Chloride (98-107) mmol/L Carbon Dioxide (22-30) mmol/L Anion Gap mmol/L BUN (7-17) mg/dL Creatinine (0.52-1.04) mg/dL Est GFR (CKD-EPI)AfAm (>60 ml/min/1.73 sqM) Est GFR (CKD-EPI)NonAf (>60 ml/min/1.73 sqM) Glucose (74-99) mg/dL Calcium (8.4-10.2) mg/dL Total Bilirubin (0.2-1.3) mg/dL AST (14-36) U/L ALT (9-52) U/L Alkaline Phosphatase (38-126) U/L Total Protein (6.3-8.2) g/dL Albumin (3.5-5.0) g/dL HCG, Quant mIU/mL Urine Color Light Yellow Urine Appearance Clear (Clear) Urine pH 5.5 (5.0-8.0) Ur Specific Glide 1.019 (1.001-1.035) Urine Protein Negative (Negative) Urine Glucose (UA) Negative (Negative) Urine Ketones Negative (Negative) Urine Blood Moderate H (Negative) Urine Nitrite Negative (Negative) Urine Bilirubin Negative (Negative) Urine Urobilinogen <2.0 (<2.0) mg/dL Ur Leukocyte Esterase Negative (Negative) Urine RBC 1 (0-5) /hpf Urine WBC 2 (0-5) /hpf Ur Squamous Epith Cells 2 (0-4) /hpf Urine Mucus Rare H (None) /hpf Blood Type O Positive Blood Type Recheck No Disposition Clinical Impression: Miscarriage, Vaginal spotting, Abdominal pain Disposition: HOME SELF-CARE Condition: Stable Instructions (If sedation given, give patient instructions): Miscarriage (ED) Additional Instructions: Please follow-up with your HIDE EXAMINER in 2 days for repeat blood work. Your beta Quant level was 3,126 on February 06. You may need a repeat ultrasound. Return to the emergency room for any new or worsening symptoms Is patient prescribed a controlled substance at d/c from ED?: No Referrals: Wanda Rivas MD [Primary Care Provider] - 1-2 days Forms: Work/School Release Time of Disposition: 20:14
[2019-02-06 20:25] VITALS: BP 114/69; PULSE 96; RESP 17; TEMP 97.9
== END 2019-02-06 20:23 | disposition home or self-care (01) ==
LOC: EC 17:09
DX: O03.9 Complete or unspecified spontaneous abortion without complication (principal); O99.611 Diseases of the digestive system complicating pregnancy, first trimester; K21.9 Gastro-esophageal reflux disease without esophagitis; Z87.891 Personal history of nicotine dependence; Z90.49 Acquired absence of other specified parts of digestive tract; Z3A.01 Less than 8 weeks gestation of pregnancy; Z79.899 Other long term (current) drug therapy; Z88.1 Allergy status to other antibiotic agents; Z88.0 Allergy status to penicillin; Z88.2 Allergy status to sulfonamides; Z53.29 Procedure and treatment not carried out because of patient's decision for other reasons
CPT/HCPCS: 36415; 76801; 76817; 80053; 81001; 84702; 85025; 85610; 85730; 86900; 86901; 99284

== ENCOUNTER 2019-02-13 16:27 | Emergency (ER) | payer OTHER ==
[2019-02-13] MEDS ORDERED: ACETAMINOPHEN TAB 500 MG TAB PO STA (17:18)
[2019-02-13 17:31] LABS: Basophils # (A) 0.1 k/uL (0-0.2); Basophils % (A) 1 %; Eosinophils # (A) 0.1 k/uL (0-0.7); Eosinophils % (A) 1 %; HCT 38.2 % (34.0-46.0); HGB 13.2 gm/dL (11.4-16.0); Lymphocytes # (A) 1.7 k/uL (1.0-4.8); Lymphocytes % (A) 21 %; MCH 32.1 pg (25.0-35.0); MCHC 34.7 g/dL (31.0-37.0); MCV 92.6 fL (80.0-100.0); Mean Platelet Volume 7.4; Monocytes # (A) 0.5 k/uL (0-1.0); Monocytes % (A) 6 %; Neutrophils # (A) 5.7 k/uL (1.3-7.7); Neutrophils % (A) 70 %; Platelet Count 248 k/uL (150-450); RBC 4.12 m/uL (3.80-5.40); WBC 8.2 k/uL (3.8-10.6)
[2019-02-13 17:36] LABS: African American GFR (CKD) >90 (>60 ml/min/1.73 sqM); Anion Gap 9 mmol/L; Blood Urea Nitrogen 9 mg/dL (7-17); Calcium 9.9 mg/dL (8.4-10.2); Carbon Dioxide 25 mmol/L (22-30); Chloride 103 mmol/L (98-107); Glucose 124 mg/dL (74-99); Non-African American GFR(CKD) >90 (>60 ml/min/1.73 sqM); Potassium 3.8 mmol/L (3.5-5.1); Sodium 137 mmol/L (137-145)
[2019-02-13 17:52] LABS: HCG,Quantitative Serum 10978.7 mIU/mL
[2019-02-13 18:20] VITALS: RESP 18
--- NOTE | 2019-02-13 19:05 | ED ---
Female Urogenital HPI - General Chief complaint: Vaginal Bleeding Stated complaint: 7wks /bleeding Time Seen by Provider: 02/13/19 16:39 Source: patient Mode of arrival: ambulatory Limitations: no limitations - History of Present Illness Initial comments: Patient is a 38-year-old female presenting to the emergency Department with complaints of vaginal spotting and lower abdominal cramping since yesterday. Patient is currently 7 weeks . Patient is . Patient was in the ER approximately 1 week ago for similar complaint. Ultrasound was performed at the time that showed a gestational sac but no IUP at that time. Patient states she had OB follow-up on Sunday and reports that her beta levels slightly decreased and then increased on that Sunday visit. Patient was supposed to have a follow- up ultrasound next week. Patient states she has been spotting since yesterday and is having an increase in lower abdominal cramping. Patient denies fever, chills, nausea, vomiting. No other complaints at this time. Last Menstrual Period: 12/23/18 - Related Data Home Medications Medication Instructions Recorded Confirmed Omeprazole [PriLOSEC] 20 mg PO AC-BID 11/04/18 02/06/19 Allergies Allergy/AdvReac Type Severity Reaction Status Date / Time Cephalosporins Allergy Severe Rash/Hives Verified 02/13/19 16:36 Penicillins Allergy Severe Rash/Hives Verified 02/13/19 16:36 Sulfa (Sulfonamide Allergy Severe Rash/Hives Verified 02/13/19 16:36 Antibiotics) Review of Systems ROS Statement: Those systems with pertinent positive or pertinent negative responses have been documented in the HPI. ROS Other: All systems not noted in ROS Statement are negative. Past Medical History Past Medical History: GERD/Reflux, Seizure Disorder, Thyroid Disorder Additional Past Medical History / Comment(s): recent miscarriage in September 2018, hx perforated ulcer, H Pylori, last seizure 2004, colitis, hypoglycemia, thyroid nodules, migraines, palpitations, pain left side of stomach History of Any Multi-Drug Resistant Organisms: None Reported Past Surgical History: Appendectomy, Cholecystectomy Additional Past Surgical History / Comment(s): D&C, pilonidal cyst, cyst removed from upper back, leep procedure, sx for perforated ulcer, edg/colonoscopy, recent D & C beginning of September Past Anesthesia/Blood Transfusion Reactions: Previous Problems w/ Anesthesia Additional Past Anesthesia/Blood Transfusion Reaction / Comment(s): "shaky and low BP" Past Psychological History: Anxiety Smoking Status: Former smoker Past Alcohol Use History: None Reported Past Drug Use History: None Reported - Past Family History Brother(s) Family Medical History: Cancer General Exam - General Exam Comments Initial Comments: GENERAL: Well-appearing, well-nourished and in no acute distress. HEAD: Atraumatic, normocephalic. EYES: Pupils equal round and reactive to light, extraocular movements intact, sclera anicteric, conjunctiva are normal. ENT: TMs normal, nares patent, oropharynx clear without exudates. Moist mucous membranes. NECK: Normal range of motion, supple without lymphadenopathy or JVD. LUNGS: Breath sounds clear to auscultation bilaterally and equal. No wheezes rales or rhonchi. HEART: Regular rate and rhythm without murmurs, rubs or gallops. ABDOMEN: Mild tenderness to lower abdominal region. Right > left. Soft, normoactive bowel sounds. No guarding, no rebound. No masses appreciated. : Deferred EXTREMITIES: Normal range of motion, no pitting or edema. No clubbing or cyanosis. NEUROLOGICAL: Cranial nerves II through XII grossly intact. Normal speech, normal gait. PSYCH: Normal mood, normal affect. SKIN: Warm, Dry, normal turgor, no rashes or lesions noted. Limitations: no limitations Course Vital Signs 02/13/19 02/13/19 16:31 18:19 Temperature 98.0 F 97.9 F Pulse Rate 74 84 Respiratory 16 18 Rate Blood Pressure 125/75 127/70 O2 Sat by Pulse 99 97 Oximetry Medical Decision Making - Medical Decision Making Patient is a 38-year-old female presenting for vaginal spotting and lower abdominal cramping since yesterday. Patient is currently 7 weeks . Patient and OB has been following her beta hCG levels. Patient's beta hCG levels have went from 3902, 3101 day later, to approximately 6004 days ago. Today's level is 10,978. Ultrasound reveals current IUP. Patient is refusing a vaginal exam at this time. Patient will follow up with her OB next week as planned. Patient is stable for discharge. Return parameters were discussed with the patient she verbalized understanding. Case discussed with Dr. Graves. - Lab Data Result diagrams: 02/13/19 16:47 02/13/19 16:47 Lab Results 02/13/19 02/13/19 Range/Units 16:47 16:47 WBC 8.2 (3.8-10.6) k/uL RBC 4.12 (3.80-5.40) m/uL Hgb 13.2 (11.4-16.0) gm/dL Hct 38.2 (34.0-46.0) % MCV 92.6 (80.0-100.0) fL MCH 32.1 (25.0-35.0) pg MCHC 34.7 (31.0-37.0) g/dL RDW 13.0 (11.5-15.5) % Plt Count 248 (150-450) k/uL Neutrophils % 70 % Lymphocytes % 21 % Monocytes % 6 % Eosinophils % 1 % Basophils % 1 % Neutrophils # 5.7 (1.3-7.7) k/uL Lymphocytes # 1.7 (1.0-4.8) k/uL Monocytes # 0.5 (0-1.0) k/uL Eosinophils # 0.1 (0-0.7) k/uL Basophils # 0.1 (0-0.2) k/uL Sodium 137 (137-145) mmol/L Potassium 3.8 (3.5-5.1) mmol/L Chloride 103 (98-107) mmol/L Carbon Dioxide 25 (22-30) mmol/L Anion Gap 9 mmol/L BUN 9 (7-17) mg/dL Creatinine 0.56 (0.52-1.04) mg/dL Est GFR (CKD-EPI)AfAm >90 (>60 ml/min/1.73 sqM) Est GFR (CKD-EPI)NonAf >90 (>60 ml/min/1.73 sqM) Glucose 124 H (74-99) mg/dL Calcium 9.9 (8.4-10.2) mg/dL HCG, Quant 49071.7 mIU/mL Disposition Clinical Impression: Vaginal spotting Disposition: HOME SELF-CARE Condition: Stable Instructions (If sedation given, give patient instructions): Threatened Miscarriage (ED) Additional Instructions: Please return to the Emergency Department if symptoms worsen or any other concerns. Follow-up with OB as discussed. Is patient prescribed a controlled substance at d/c from ED?: No Referrals: Wanda Rivas MD [Primary Care Provider] - 1-2 days
--- NOTE | 2019-02-13 19:10 | US ---
EXAMINATION TYPE: Transabdominal DATE OF EXAM: 02/13/2019 5:50 PM COMPARISON: None CLINICAL HISTORY: Pain, bleeding. Spotting, cramping EXAM PERFORMED: [facility] EXAM MEASUREMENTS: GESTATIONAL AGE / DATING Physician Established: Not yet established Dates by LMP: (7 weeks/3 days) EDC: 09/28/2018 Dates by First Scan: too early to date last week Dates by Current Scan for: (5 weeks/0 days) EDC: 10/16/2019 MATERNAL ANATOMY Uterus: wnl Right Ovary: wnl Left Ovary: wnl Post CDS / Adnexa: wnl Presence of free fluid: no Presence of corpus luteal cyst: 2.0 cm right ovary Presence of subchorionic bleed: no GESTATION / SURVEY MSD: 1.0cm ( 5 weeks/0 days), located in uterine fundus. Date of LMP: 12/23/2018 Beta HcG (if available): no results yet IMPRESSION: IUP as detailed.
[2019-02-13 19:39] VITALS: BP 134/80; PULSE 82; TEMP 97.3
== END 2019-02-13 19:39 | disposition home or self-care (01) ==
LOC: EC 16:27
DX: O26.851 Spotting complicating pregnancy, first trimester (principal); O99.611 Diseases of the digestive system complicating pregnancy, first trimester; K21.9 Gastro-esophageal reflux disease without esophagitis; Z87.891 Personal history of nicotine dependence; Z88.0 Allergy status to penicillin; Z88.1 Allergy status to other antibiotic agents; Z88.2 Allergy status to sulfonamides; Z79.899 Other long term (current) drug therapy; Z90.49 Acquired absence of other specified parts of digestive tract; Z3A.01 Less than 8 weeks gestation of pregnancy; Z53.20 Procedure and treatment not carried out because of patient's decision for unspecified reasons
CPT/HCPCS: 36415; 76801; 80048; 84702; 85025; 99284

== ENCOUNTER 2019-02-23 21:09 | Emergency (ER) | payer OTHER ==
[2019-02-23 21:46] VITALS: RESP 18
[2019-02-23] MEDS ORDERED: SODIUM CHLORIDE 0.9% 500 ML 500 ML IV ONE (21:47)
[2019-02-23 22:26] LABS: Basophils # (A) 0.1 k/uL (0-0.2); Basophils % (A) 1 %; Eosinophils # (A) 0.1 k/uL (0-0.7); Eosinophils % (A) 1 %; HCT 39.4 % (34.0-46.0); HGB 13.6 gm/dL (11.4-16.0); Lymphocytes % (A) 20 %; MCH 32.3 pg (25.0-35.0); MCHC 34.6 g/dL (31.0-37.0); MCV 93.5 fL (80.0-100.0); Mean Platelet Volume 7.6; Monocytes # (A) 0.6 k/uL (0-1.0); Monocytes % (A) 6 %; Neutrophils # (A) 7.2 k/uL (1.3-7.7); Neutrophils % (A) 71 %; Platelet Count 253 k/uL (150-450); RBC 4.22 m/uL (3.80-5.40); RDW 14.7 % (11.5-15.5); WBC 10.2 k/uL (3.8-10.6)
[2019-02-23 22:34] LABS: Appearance,Urine Clear (Clear); Bacteria,Urine Rare /hpf; Bilirubin,Urine Negative (Negative); Blood,Urine Large (Negative); Color,Urine Yellow; Glucose,Urine (UA) Negative (Negative); Ketones,Urine Negative (Negative); Leukocyte Esterase,Urine Trace (Negative); Nitrite,Urine Negative (Negative); Protein,Urine Negative (Negative); RBC,Urine 1 /hpf (0-5); Squamous Epithelial Cell,Urine 7 /hpf (0-4); Urobilinogen,Urine <2.0 mg/dL (<2.0); WBC,Urine 3 /hpf (0-5)
[2019-02-23 22:35] LABS: ALT 36 U/L (9-52); AST 37 U/L (14-36); African American GFR (CKD) >90 (>60 ml/min/1.73 sqM); Albumin 4.4 g/dL (3.5-5.0); Alkaline Phosphatase 91 U/L (38-126); Anion Gap 11 mmol/L; Blood Urea Nitrogen 15 mg/dL (7-17); Calcium 9.8 mg/dL (8.4-10.2); Carbon Dioxide 23 mmol/L (22-30); Chloride 103 mmol/L (98-107); Glucose 91 mg/dL (74-99); Potassium 4.2 mmol/L (3.5-5.1); Sodium 137 mmol/L (137-145); Total Bilirubin 0.6 mg/dL (0.2-1.3); Total Protein 7.2 g/dL (6.3-8.2)
[2019-02-23] MEDS ORDERED: ACETAMINOPHEN TAB 500 MG TAB PO STA (22:56)
--- NOTE | 2019-02-23 23:06 | ED ---
General Adult HPI - General Source: patient, RN notes reviewed Mode of arrival: ambulatory Limitations: no limitations <Jose Raul Salmeron - Last Filed: 02/25/19 00:57> <Luis Ibrahim - Last Filed: 02/25/19 02:09> - General Chief complaint: Vaginal Bleeding Stated complaint: 6 wks , bleeding Time Seen by Provider: 02/23/19 21:47 - History of Present Illness Initial comments: 38-year-old female presents to the emergency department for a chief complaint of vaginal bleeding. Patient is a female. Patient has a history of one miscarriage in September. Patient states that she has had vaginal bleeding throughout her entire . States her last menstrual period was 12/24/2018 and she is currently 7 weeks . Patient states over the past day she has had worsening cramping and this is concerning her. Patient states she did pass a clot today which also concerned her. Patient denies any other abdominal pain. Denies any fevers or chills. States she did have a confirmed intrauterine by ultrasound.Patient has no other complaints at this time including shortness of breath, chest pain, abdominal pain, nausea or vomiting, headache, or visual changes. (Jose Raul Salmeron) - Related Data Home Medications Medication Instructions Recorded Confirmed Omeprazole [PriLOSEC] 20 mg PO AC-BID 11/04/18 02/06/19 Allergies Allergy/AdvReac Type Severity Reaction Status Date / Time Cephalosporins Allergy Severe Rash/Hives Verified 02/13/19 16:36 Penicillins Allergy Severe Rash/Hives Verified 02/13/19 16:36 Sulfa (Sulfonamide Allergy Severe Rash/Hives Verified 02/13/19 16:36 Antibiotics) Review of Systems ROS Other: All systems not noted in ROS Statement are negative. <Jose Raul Salmeron - Last Filed: 02/25/19 00:57> ROS Other: All systems not noted in ROS Statement are negative. <Luis Ibrahim - Last Filed: 02/25/19 02:09> ROS Statement: Those systems with pertinent positive or pertinent negative responses have been documented in the HPI. Past Medical History Past Medical History: GERD/Reflux, Seizure Disorder, Thyroid Disorder Additional Past Medical History / Comment(s): recent miscarriage in September 2018, hx perforated ulcer, H Pylori, last seizure 2004, colitis, hypoglycemia, thyroid nodules, migraines, palpitations, pain left side of stomach History of Any Multi-Drug Resistant Organisms: None Reported Past Surgical History: Appendectomy, Cholecystectomy Additional Past Surgical History / Comment(s): D&C, pilonidal cyst, cyst removed from upper back, leep procedure, sx for perforated ulcer, edg/colonoscopy, recent D & C beginning of September Past Anesthesia/Blood Transfusion Reactions: Previous Problems w/ Anesthesia Additional Past Anesthesia/Blood Transfusion Reaction / Comment(s): "shaky and low BP" Past Psychological History: Anxiety Smoking Status: Former smoker Past Alcohol Use History: None Reported Past Drug Use History: None Reported - Past Family History Brother(s) Family Medical History: Cancer <Jose Raul Salmeron P - Last Filed: 02/25/19 00:57> General Exam Limitations: no limitations General appearance: alert, in no apparent distress Head exam: Present: atraumatic, normocephalic, normal inspection Eye exam: Present: normal appearance, PERRL, EOMI. Absent: scleral icterus, conjunctival injection, periorbital swelling ENT exam: Present: normal exam, mucous membranes moist Neck exam: Present: normal inspection, full ROM. Absent: tenderness, meningismus, lymphadenopathy Respiratory exam: Present: normal lung sounds bilaterally. Absent: respiratory distress, wheezes, rales, rhonchi, stridor Cardiovascular Exam: Present: regular rate, normal rhythm, normal heart sounds. Absent: systolic murmur, diastolic murmur, rubs, gallop, clicks GI/Abdominal exam: Present: soft, normal bowel sounds. Absent: distended, tenderness, guarding, rebound, rigid External exam: Present: normal external exam. Absent: erythema, swelling, lesions, lacerations, ecchymosis Speculum exam: Present: vaginal bleeding (Mild vaginal bleeding.). Absent: normal speculum exam, erythema, vaginal discharge, cervical discharge, foreign body By manual exam: Present: normal by manual exam. Absent: cervical motion tenderness, adnexal tenderness, adnexal mass, uterine enlargement, uterine tenderness Neurological exam: Present: alert Psychiatric exam: Present: normal affect, normal mood <Jose Raul Salmeron P - Last Filed: 02/25/19 00:57> Course <Jose Raul Salmeron P - Last Filed: 02/25/19 00:57> Vital Signs 02/23/19 02/24/19 02/24/19 21:43 00:46 02:35 Temperature 98.1 F 98.2 F Pulse Rate 67 68 66 Respiratory 18 18 18 Rate Blood Pressure 121/78 112/62 113/62 O2 Sat by Pulse 98 99 Oximetry - Reevaluation(s) Reevaluation #1: 02/23/19 23:11 Patient states she was recently tested for gonorrhea chlamydia Trichomonas at her [facility], states it was negative and she does not want to be tested again. (Jose Raul Salmeron) Medical Decision Making - Lab Data Result diagrams: 02/23/19 22:09 02/23/19 22:09 <Jose Raul Salmeron - Last Filed: 02/25/19 00:57> - Lab Data Result diagrams: 02/23/19 22:09 02/23/19 22:09 <Luis Ibrahim - Last Filed: 02/25/19 02:09> - Medical Decision Making Lucia is a 38-year-old female who presents to the emergency department for a chief complaint of vaginal bleeding and cramping. Patient is 9 weeks pregnan t by LMP of 12/24/2018. Patient has been seen here in the emergency department 3 times for this . This patient's fourth ultrasound. I did attempt bedside ultrasound but was unable to visualize fetus. On exam patient has mild vaginal bleeding, no significant hemorrhage. Abdomen is nontender.CBC and CMP are unremarkable. Urine is negative. Blood type is O+. Care was signed out to Ac HARRIS at 0000. (Jose Raul Salmeron) Care was taken over pending transvaginal ultrasound result. Ultrasound did display an IUP however no cardiac activity was detected. This may be due to 6 weeks gestation. Patient was made aware of this, discharged with close outpatie nt follow-up with [facility] tomorrow. Pt rx forsofmycin 3g po qd for asymptomatic bacturia. Case discussed with Dr. Benavides. (Luis Ibrahim) - Lab Data Lab Results 02/23/19 02/23/19 02/23/19 Range/Units 22:09 22:09 22:09 WBC 10.2 (3.8-10.6) k/uL RBC 4.22 (3.80-5.40) m/uL Hgb 13.6 (11.4-16.0) gm/dL Hct 39.4 (34.0-46.0) % MCV 93.5 (80.0-100.0) fL MCH 32.3 (25.0-35.0) pg MCHC 34.6 (31.0-37.0) g/dL RDW 14.7 (11.5-15.5) % Plt Count 253 (150-450) k/uL Neutrophils % 71 % Lymphocytes % 20 % Monocytes % 6 % Eosinophils % 1 % Basophils % 1 % Neutrophils # 7.2 (1.3-7.7) k/uL Lymphocytes # 2.0 (1.0-4.8) k/uL Monocytes # 0.6 (0-1.0) k/uL Eosinophils # 0.1 (0-0.7) k/uL Basophils # 0.1 (0-0.2) k/uL Sodium 137 (137-145) mmol/L Potassium 4.2 (3.5-5.1) mmol/L Chloride 103 (98-107) mmol/L Carbon Dioxide 23 (22-30) mmol/L Anion Gap 11 mmol/L BUN 15 (7-17) mg/dL Creatinine 0.54 (0.52-1.04) mg/dL Est GFR (CKD-EPI)AfAm >90 (>60 ml/min/1.73 sqM) Est GFR (CKD-EPI)NonAf >90 (>60 ml/min/1.73 sqM) Glucose 91 (74-99) mg/dL Calcium 9.8 (8.4-10.2) mg/dL Total Bilirubin 0.6 (0.2-1.3) mg/dL AST 37 H (14-36) U/L ALT 36 (9-52) U/L Alkaline Phosphatase 91 (38-126) U/L Total Protein 7.2 (6.3-8.2) g/dL Albumin 4.4 (3.5-5.0) g/dL HCG, Quant 53506.4 mIU/mL Urine Color Urine Appearance (Clear) Urine pH (5.0-8.0) Ur Specific [place] (1.001-1.035) Urine Protein (Negative) Urine Glucose (UA) (Negative) Urine Ketones (Negative) Urine Blood (Negative) Urine Nitrite (Negative) Urine Bilirubin (Negative) Urine Urobilinogen (<2.0) mg/dL Ur Leukocyte Esterase (Negative) Urine RBC (0-5) /hpf Urine WBC (0-5) /hpf Ur Squamous Epith Cells (0-4) /hpf Urine Bacteria (None) /hpf Blood Type O Positive Blood Type Recheck No 02/23/19 Range/Units 22:09 WBC (3.8-10.6) k/uL RBC (3.80-5.40) m/uL Hgb (11.4-16.0) gm/dL Hct (34.0-46.0) % MCV (80.0-100.0) fL MCH (25.0-35.0) pg MCHC (31.0-37.0) g/dL RDW (11.5-15.5) % Plt Count (150-450) k/uL Neutrophils % % Lymphocytes % % Monocytes % % Eosinophils % % Basophils % % Neutrophils # (1.3-7.7) k/uL Lymphocytes # (1.0-4.8) k/uL Monocytes # (0-1.0) k/uL Eosinophils # (0-0.7) k/uL Basophils # (0-0.2) k/uL Sodium (137-145) mmol/L Potassium (3.5-5.1) mmol/L Chloride (98-107) mmol/L Carbon Dioxide (22-30) mmol/L Anion Gap mmol/L BUN (7-17) mg/dL Creatinine (0.52-1.04) mg/dL Est GFR (CKD-EPI)AfAm (>60 ml/min/1.73 sqM) Est GFR (CKD-EPI)NonAf (>60 ml/min/1.73 sqM) Glucose (74-99) mg/dL Calcium (8.4-10.2) mg/dL Total Bilirubin (0.2-1.3) mg/dL AST (14-36) U/L ALT (9-52) U/L Alkaline Phosphatase (38-126) U/L Total Protein (6.3-8.2) g/dL Albumin (3.5-5.0) g/dL HCG, Quant mIU/mL Urine Color Yellow Urine Appearance Clear (Clear) Urine pH 6.0 (5.0-8.0) Ur Specific [place] 1.020 (1.001-1.035) Urine Protein Negative (Negative) Urine Glucose (UA) Negative (Negative) Urine Ketones Negative (Negative) Urine Blood Large H (Negative) Urine Nitrite Negative (Negative) Urine Bilirubin Negative (Negative) Urine Urobilinogen <2.0 (<2.0) mg/dL Ur Leukocyte Esterase Trace H (Negative) Urine RBC 1 (0-5) /hpf Urine WBC 3 (0-5) /hpf Ur Squamous Epith Cells 7 H (0-4) /hpf Urine Bacteria Rare H (None) /hpf Blood Type Blood Type Recheck Disposition Time of Disposition: 00:24 <Jose Raul Salmeron - Last Filed: 02/25/19 00:57> Is patient prescribed a controlled substance at d/c from ED?: No <Luis Ibrahim - Last Filed: 02/25/19 02:09> Clinical Impression: Vaginal bleeding during Disposition: HOME SELF-CARE Condition: Stable Instructions (If sedation given, give patient instructions): (ED) Additional Instructions: Patient to adhere to previously discussed treatment plan and will take m edication(s) as directed. Patient to follow up with PCP in 1-2 days. Patient to return to ED if symptoms do not improve. Follow-up with nuclear medical technologist tomorrow. Referrals: Wanda Rivas MD [Primary Care Provider] - 1-2 days Arash Tam MD [STAFF PHYSICIAN] - 1-2 days
[2019-02-23 23:16] LABS: HCG,Quantitative Serum 30938.4 mIU/mL
--- NOTE | 2019-02-24 01:20 | US ---
EXAM: US First Trimester, Transabdominal US , Transvaginal CLINICAL HISTORY: ITS.REASON US Reason: Pain TECHNIQUE: Real-time transabdominal and transvaginal obstetrical ultrasound of the maternal pelvis and a first trimester with image documentation. Transvaginal imaging was used for better evaluation of the fetus and adnexa. COMPARISON: Ultrasound dated 02/13/2019. FINDINGS: Gestation: Single intrauterine with a crown-rump length corresponding to an estimated gestational age of 6 weeks and 4 days. There is a yolk sac. No embryonic cardiac activity is detected. Placenta/amniotic fluid: Cannot be adequately evaluated due to the early gestational age. Uterus/cervix: Mild nonspecific fluid in the endocervical canal. No myometrial mass. Ovaries: 1.4 cm presumed corpus luteum in the right ovary. No mass. Free fluid: No free fluid. IMPRESSION: 1. Single intrauterine with a crown-rump length corresponding to an estimated gestational age of 6 weeks and 4 days. There is a yolk sac. No embryonic cardiac activity is detected. Close follow-up advised to ensure viable . 2. Mild nonspecific fluid in the endocervical canal.
[2019-02-24 02:36] VITALS: BP 113/62; PULSE 66; TEMP 98.2
== END 2019-02-24 02:13 | disposition home or self-care (01) ==
LOC: EC 21:09
DX: O20.9 Hemorrhage in early pregnancy, unspecified (principal); Z67.40 Type O blood, Rh positive; O99.611 Diseases of the digestive system complicating pregnancy, first trimester; K21.9 Gastro-esophageal reflux disease without esophagitis; Z87.891 Personal history of nicotine dependence; Z88.0 Allergy status to penicillin; Z88.1 Allergy status to other antibiotic agents; Z88.2 Allergy status to sulfonamides; Z79.899 Other long term (current) drug therapy; Z87.59 Personal history of other complications of pregnancy, childbirth and the puerperium; Z90.49 Acquired absence of other specified parts of digestive tract; Z98.890 Other specified postprocedural states; Z3A.01 Less than 8 weeks gestation of pregnancy
CPT/HCPCS: 36415; 76801; 76817; 80053; 81001; 84702; 85025; 86900; 86901; 99284

== ENCOUNTER → 2019-02-25 | Outpatient (CLI) | payer OTHER | END | disposition home or self-care (01) | LOC: LABWHC1 16:19 | PROVIDERS: ATTEND Obstetrics & Gynecology | DX: O02.1 Missed abortion (principal); Z3A.00 Weeks of gestation of pregnancy not specified | CPT/HCPCS: 36415; 84702 ==

== ENCOUNTER → 2019-02-27 | Outpatient (CLI) | payer OTHER ==
[2019-02-27 15:16] LABS: Basophils # (A) 0.1 k/uL (0-0.2); Basophils % (A) 1 %; Eosinophils # (A) 0.1 k/uL (0-0.7); Eosinophils % (A) 1 %; HCT 38.9 % (34.0-46.0); HGB 13.3 gm/dL (11.4-16.0); Lymphocytes # (A) 1.7 k/uL (1.0-4.8); Lymphocytes % (A) 16 %; MCH 32.4 pg (25.0-35.0); MCHC 34.3 g/dL (31.0-37.0); MCV 94.4 fL (80.0-100.0); Mean Platelet Volume 7.2; Monocytes # (A) 0.6 k/uL (0-1.0); Monocytes % (A) 6 %; Neutrophils # (A) 7.6 k/uL (1.3-7.7); Neutrophils % (A) 75 %; Platelet Count 278 k/uL (150-450); RBC 4.12 m/uL (3.80-5.40); RDW 12.9 % (11.5-15.5); WBC 10.2 k/uL (3.8-10.6)
== END | disposition home or self-care (01) ==
LOC: LABPAT 13:50
PROVIDERS: ATTEND Obstetrics & Gynecology Obstetrics
DX: Z01.812 Encounter for preprocedural laboratory examination (principal); O03.9 Complete or unspecified spontaneous abortion without complication
CPT/HCPCS: 36415; 85025; 86850; 86900; 86901

== ENCOUNTER → 2019-02-27 | Outpatient (CLI) | payer OTHER | END | disposition home or self-care (01) | LOC: LABWHC1 13:53 | PROVIDERS: ATTEND Obstetrics & Gynecology Obstetrics | DX: O02.1 Missed abortion (principal) | CPT/HCPCS: 36415; 84702 ==

== ENCOUNTER 2019-02-28 09:51 | Day surgery (SDC) | payer OTHER ==
[~2019-02-28 09:51] MED LIST changes: -LACTATED RINGERS 1,000 ML IV SCH; -LIDOCAINE 1% 20 ML VIAL (10MG/ML) FOR IV START INTRADERMA PRN; +Pre Op ABX Message 1 EACH MISC MISCELLANE ONE
[2019-02-28] MEDS ORDERED: PROPOFOL 10 MG/ML 20 ML VIAL IV ONE ×2 (10:03→10:36)
[2019-02-28] MEDS ORDERED: LACTATED RINGERS 1,000 ML IV ONE (10:09)
[2019-02-28] MEDS ORDERED: LIDOCAINE 1% 20 ML VIAL (10MG/ML) FOR IV START INTRADERMA ONE (10:15)
[2019-02-28] MEDS ORDERED: DEXAMETHASONE SOD PHOS (MDV) 100 MG/10 ML VIAL IVP ONE (10:18)
[2019-02-28] MEDS: ONDANSETRON 4 MG/2 ML VIAL IVP ONE ×2 (10:18→12:09)
[2019-02-28] MEDS ORDERED: fentaNYL (PF) 50 MCG/ML 2 ML AMP ONE (10:36)
[2019-02-28] MEDS ORDERED: LIDOCAINE 1% INJ 10MG/ML (20 ML MDV) ONE (10:36)
[2019-02-28] MEDS ORDERED: MIDAZOLAM 2 MG/2 ML VIAL ONE (10:36)
--- NOTE | 2019-02-28 11:11 | P.OP ---
Date of Procedure: 02/28/19 Preoperative Diagnosis: Missed AB Postoperative Diagnosis: Same Procedure(s) Performed: Suction dilation and curettage Anesthesia: MAC Surgeon: Tracy Bhatt Estimated Blood Loss (ml): 5 IV fluids (ml): 300 Urine output (ml): 50 Pathology: other (Uterine contents) Condition: stable Disposition: PACU Indications for Procedure: Missed AB, 6 weeks 5 days with no heart tones, patient is Rh+ Operative Findings: 6 seven-week size uterus moderate amount of products of conception obtained Description of Procedure: Patient was seen in the preoperative area and informed consent was obtained. Patient was taken back to the operating suite where general anesthesia was obtained without difficulty by the anesthesia department. She was then prepped and draped in normal sterile fashion in the dorsal lithotomy position. A red rubber catheter was then used to drain the bladder of clear yellow urine. A weighted speculum was placed in the posterior vaginal vault the anterior lip the cervix is visualized and grasped with a single-tooth tenaculum, the endocervical canal was then dilated to 18-[place]. An 8 curved suction curette was then placed into the endometrial cavity suction was activated and a moderate amount of products of conception were obtained from the endometrial cavity. A gentle sharp curettage was then performed until gritty texture was noted in all 4 q uadrants of the endometrial cavity. Minimal bleeding was noted at this time. At this time the single-tooth tenaculum was taken off of the anterior lip of the cervix hemostasis was appreciated. No bleeding was noted from the cervix. All instruments removed from the patient's vaginal vault. Patient tolerated procedure well all counts are correct 2
[2019-02-28 11:15] VITALS: TEMP 97.4
[2019-02-28] MEDS ORDERED: HYDROmorphone 1 MG/ML 1 ML SYRINGE IVP ONE ×2 (11:21→11:58)
[2019-02-28] MEDS: LACTATED RINGERS 1,000 ML IV ONE ×3 (11:30→12:11)
[2019-02-28] MEDS ORDERED: HYDROmorphone 2 MG/ML 1 ML SYRINGE IVP ONE (11:42)
[2019-02-28] MEDS ORDERED: SCOPOLAMINE 1.5MG/72HR PATCH TRANSDERM ONE (12:11)
[2019-02-28] MEDS ORDERED: ONDANSETRON 4 MG/2 ML VIAL IVP ONE (12:11)
[2019-02-28] MEDS ORDERED: MIDAZOLAM 2 MG/2 ML VIAL IV PRN (12:11)
[2019-02-28] MEDS ORDERED: HYDROmorphone 0.5 MG/0.5 ML SYRINGE IVP PRN (12:11)
[2019-02-28] MEDS ORDERED: DEXAMETHASONE SOD PHOSPHATE 10 MG/ML 1 ML VIAL IV ONE (12:11)
[2019-02-28] MEDS ORDERED: LACTATED RINGERS 1,000 ML IV SCH (12:11)
[2019-02-28 13:07] VITALS: RESP 16
[2019-02-28] MEDS ORDERED: IBUPROFEN 200 MG TAB PO ONE (13:15)
[2019-02-28 13:33] VITALS: BP 111/76; PULSE 69
== END 2019-02-28 13:40 | disposition home or self-care (01) ==
LOC: OR 09:51
PROVIDERS: ATTEND Obstetrics & Gynecology Obstetrics
DX: O02.1 Missed abortion (principal); E03.9 Hypothyroidism, unspecified; K58.9 Irritable bowel syndrome, unspecified; K21.9 Gastro-esophageal reflux disease without esophagitis; Z88.0 Allergy status to penicillin; Z88.1 Allergy status to other antibiotic agents; Z88.2 Allergy status to sulfonamides; Z79.899 Other long term (current) drug therapy; Z87.891 Personal history of nicotine dependence; Z87.42 Personal history of other diseases of the female genital tract; Z86.19 Personal history of other infectious and parasitic diseases; Z90.89 Acquired absence of other organs; Z90.49 Acquired absence of other specified parts of digestive tract; Z98.890 Other specified postprocedural states; Z87.59 Personal history of other complications of pregnancy, childbirth and the puerperium; Z86.69 Personal history of other diseases of the nervous system and sense organs; Z82.5 Family history of asthma and other chronic lower respiratory diseases; Z83.49 Family history of other endocrine, nutritional and metabolic diseases
CPT/HCPCS: 59820; 88305; J2250; J1170 ×2; J2405; J2001; J3010; J1100; J2704

== ENCOUNTER 2019-04-16 16:59 | Emergency (ER) | payer OTHER ==
[2019-04-16] MEDS ORDERED: diphenhydrAMINE 50 MG/ML 1 ML VIAL IVP STA (18:25)
[2019-04-16] MEDS ORDERED: METOCLOPRAMIDE 5 MG/ML 2 ML VIAL IVP STA (18:25)
[2019-04-16] MEDS ORDERED: SODIUM CHLORIDE 0.9% 1,000 ML IV STA (18:25)
[2019-04-16] MEDS ORDERED: ACETAMINOPHEN TAB 500 MG TAB PO STA (18:25)
--- NOTE | 2019-04-16 18:43 | ED ---
General Adult HPI - General Chief complaint: Nausea/Vomiting/Diarrhea Stated complaint: Sick, back pain & abd pain Time Seen by Provider: 04/16/19 18:13 Source: patient Mode of arrival: ambulatory Limitations: no limitations - History of Present Illness Initial comments: 38-year-old female patient presents to the emergency department today for evaluation of increased low back pain, vomiting, diarrhea. Patient reports being approximately 6 weeks . Patient is with two spontaneous abortions and one ectopic . Patient states she has been sick with vomiting, diarrhea, and chills since Sunday. Patient states that she was seen and evaluated at [facility] last evening and was diagnosed with a viral gastrointestinal illness. She was given zofran. She states that she still has nausea and chills, but has not vomited today. States she has had some diarrhea. She denies hematemesis, hematochezia, or melena. She states today she developed severe low back pain. States it worsens with movement. States that her spine is tender to touch. She denies any known fever. Denies hematuria, dysuria, urinary frequency, urinary urgency. She denies any abnormal vaginal bleeding or discharge. She denies any recent travel or sick contacts. Patient denies any recent rash, shortness breath, chest pain, numbness, tingling, dizziness, weakness, headache, visual changes, or any other complaints. - Related Data Home Medications Medication Instructions Recorded Confirmed No Known Home Medications 04/16/19 04/16/19 Allergies Allergy/AdvReac Type Severity Reaction Status Date / Time Cephalosporins Allergy Severe Rash/Hives Verified 04/16/19 18:26 Penicillins Allergy Severe Rash/Hives Verified 04/16/19 18:26 Sulfa (Sulfonamide Allergy Severe Rash/Hives Verified 04/16/19 18:26 Antibiotics) Review of Systems ROS Statement: Those systems with pertinent positive or pertinent negative responses have been documented in the HPI. ROS Other: All systems not noted in ROS Statement are negative. Past Medical History Past Medical History: GERD/Reflux, Seizure Disorder, Thyroid Disorder Additional Past Medical History / Comment(s): recent miscarriage in September 2018, hx perforated ulcer, H Pylori, last seizure 2004, colitis, hypoglycemia, thyroid nodules, migraines, palpitations, pain left side of stomach History of Any Multi-Drug Resistant Organisms: None Reported Past Surgical History: Appendectomy, Cholecystectomy Additional Past Surgical History / Comment(s): D&C, pilonidal cyst, cyst removed from upper back, leep procedure, sx for perforated ulcer, edg/colonoscopy, recent D & C beginning of September and feb Past Anesthesia/Blood Transfusion Reactions: Previous Problems w/ Anesthesia Additional Past Anesthesia/Blood Transfusion Reaction / Comment(s): "shaky and low BP" Past Psychological History: Anxiety Smoking Status: Former smoker Past Alcohol Use History: None Reported Past Drug Use History: None Reported - Past Family History Brother(s) Family Medical History: Cancer General Exam Limitations: no limitations General appearance: alert, in no apparent distress, other (This is a well- developed, well-nourished adult female patient in no acute distress. Vital signs upon presentation are temperature 97.8F, pulse 80, respirations 20, blood pressure 149/73, pulse ox 98% on room air.) Eye exam: Present: normal appearance, PERRL, EOMI. Absent: scleral icterus, conjunctival injection, periorbital swelling ENT exam: Present: normal exam, normal oropharynx, mucous membranes moist Respiratory exam: Present: normal lung sounds bilaterally. Absent: respiratory distress, wheezes, rales, rhonchi, stridor Cardiovascular Exam: Present: regular rate, normal rhythm, normal heart sounds. Absent: systolic murmur, diastolic murmur, rubs, gallop, clicks GI/Abdominal exam: Present: soft, normal bowel sounds. Absent: distended, tenderness, guarding, rebound, rigid Back exam: Present: vertebral tenderness (Thoracic and lumbar) Neurological exam: Present: alert, oriented X3, CN II-XII intact Psychiatric exam: Present: normal affect, normal mood Skin exam: Present: warm, dry, intact, normal color. Absent: rash Course Vital Signs 04/16/19 17:17 Temperature 97.8 F Pulse Rate 80 Respiratory 100 H Rate Blood Pressure 149/73 O2 Sat by Pulse 98 Oximetry Medical Decision Making - Medical Decision Making 38-year-old female patient presented to the emergency department today for evaluation of increased low back pain. Patient had sick with vomiting and diarrhea since Sunday. Physical examination did reveal soft nontender abdomen. There was some lumbar spinal tenderness. Patient is 6 weeks . Did review records from [facility], ultrasound was obtained and showed a viable intrauterine measuring 5 weeks 6 days, this is from last night. Labs today are reviewed and are unremarkable. Urinalysis shows no evidence for infection. Patient was given IV fluids, Tylenol here in the emergency department. Upon reevaluation patient does report improvement of symptoms. Should be discharged home at this time to follow-up with her primary care physician for recheck in 1-2 days. Return parameters were discussed in detail. She verbalizes understanding and agrees with this plan. - Lab Data Result diagrams: 04/16/19 18:45 04/16/19 18:45 Lab Results 04/16/19 04/16/19 04/16/19 Range/Units 18:45 18:45 18:45 WBC 10.5 (3.8-10.6) k/uL RBC 4.30 (3.80-5.40) m/uL Hgb 13.9 (11.4-16.0) gm/dL Hct 38.4 (34.0-46.0) % MCV 89.2 D (80.0-100.0) fL MCH 32.3 (25.0-35.0) pg MCHC 36.2 (31.0-37.0) g/dL RDW 12.7 (11.5-15.5) % Plt Count 294 (150-450) k/uL Neutrophils % 73 % Lymphocytes % 18 % Monocytes % 6 % Eosinophils % 1 % Basophils % 1 % Neutrophils # 7.6 (1.3-7.7) k/uL Lymphocytes # 1.9 (1.0-4.8) k/uL Monocytes # 0.6 (0-1.0) k/uL Eosinophils # 0.1 (0-0.7) k/uL Basophils # 0.1 (0-0.2) k/uL Sodium 138 (137-145) mmol/L Potassium 3.5 (3.5-5.1) mmol/L Chloride 104 (98-107) mmol/L Carbon Dioxide 25 (22-30) mmol/L Anion Gap 9 mmol/L BUN 7 (7-17) mg/dL Creatinine 0.52 (0.52-1.04) mg/dL Est GFR (CKD-EPI)AfAm >90 (>60 ml/min/1.73 sqM) Est GFR (CKD-EPI)NonAf >90 (>60 ml/min/1.73 sqM) Glucose 88 (74-99) mg/dL Calcium 9.2 (8.4-10.2) mg/dL Total Bilirubin 0.6 (0.2-1.3) mg/dL AST 27 (14-36) U/L ALT 37 (9-52) U/L Alkaline Phosphatase 79 (38-126) U/L Total Protein 7.2 (6.3-8.2) g/dL Albumin 4.4 (3.5-5.0) g/dL Amylase 49 (30-110) U/L Lipase 58 (23-300) U/L HCG, Quant 50796.4 mIU/mL Urine Color Yellow Urine Appearance Clear (Clear) Urine pH 5.5 (5.0-8.0) Ur Specific [place] 1.014 (1.001-1.035) Urine Protein Negative (Negative) Urine Glucose (UA) Negative (Negative) Urine Ketones Negative (Negative) Urine Blood Trace H (Negative) Urine Nitrite Negative (Negative) Urine Bilirubin Negative (Negative) Urine Urobilinogen <2.0 (<2.0) mg/dL Ur Leukocyte Esterase Negative (Negative) Urine RBC 1 (0-5) /hpf Urine WBC 3 (0-5) /hpf Ur Squamous Epith Cells 9 H (0-4) /hpf Amorphous Sediment Rare H (None) /hpf Urine Bacteria Rare H (None) /hpf Urine Mucus Rare H (None) /hpf - Radiology Data Radiology results: report reviewed Ultrasound obtained at [facility] last evening, report reviewed in its entirety. Impression shows single viable intrauterine corresponding with sonographic age 5 weeks 6 days with estimated date of confinement 12/10/2019. Disposition Clinical Impression: Acute low back pain Disposition: HOME SELF-CARE Condition: Good Instructions (If sedation given, give patient instructions): Acute Low Back Pain (ED) Additional Instructions: Increase fluids. Follow-up with CELL PHONE REPAIR TECHNICIAN for recheck as soon as possible. Perform gentle range of motion exercises to the low back. Take Tylenol for symptom relief. Follow up with your primary care physician for recheck in 1-2 days. Return to the emergency department immediately for any new, worsening, or concerning symptoms. Is patient prescribed a controlled substance at d/c from ED?: No Referrals: Wanda Rivas MD [Primary Care Provider] - 1-2 days Arash Tam MD [STAFF PHYSICIAN] - 1-2 days Time of Disposition: 20:33
[2019-04-16 19:04] LABS: Basophils # (A) 0.1 k/uL (0-0.2); Basophils % (A) 1 %; Eosinophils # (A) 0.1 k/uL (0-0.7); Eosinophils % (A) 1 %; HCT 38.4 % (34.0-46.0); HGB 13.9 gm/dL (11.4-16.0); Lymphocytes # (A) 1.9 k/uL (1.0-4.8); Lymphocytes % (A) 18 %; MCH 32.3 pg (25.0-35.0); MCHC 36.2 g/dL (31.0-37.0); Mean Platelet Volume 6.5; Monocytes # (A) 0.6 k/uL (0-1.0); Monocytes % (A) 6 %; Neutrophils # (A) 7.6 k/uL (1.3-7.7); Neutrophils % (A) 73 %; Platelet Count 294 k/uL (150-450); RDW 12.7 % (11.5-15.5); WBC 10.5 k/uL (3.8-10.6)
[2019-04-16 19:09] LABS: MCV 89.2 fL (80.0-100.0)
[2019-04-16 19:12] LABS: Amorphous Sediment,Urine Rare /hpf; Appearance,Urine Clear (Clear); Bacteria,Urine Rare /hpf; Bilirubin,Urine Negative (Negative); Blood,Urine Trace (Negative); Color,Urine Yellow; Glucose,Urine (UA) Negative (Negative); Ketones,Urine Negative (Negative); Leukocyte Esterase,Urine Negative (Negative); Mucus,Urine Rare /hpf; Nitrite,Urine Negative (Negative); PH, Urine 5.5 (5.0-8.0); Protein,Urine Negative (Negative); RBC,Urine 1 /hpf (0-5); Specific Gravity,Urine 1.014 (1.001-1.035); Squamous Epithelial Cell,Urine 9 /hpf (0-4); Urobilinogen,Urine <2.0 mg/dL (<2.0); WBC,Urine 3 /hpf (0-5)
[2019-04-16 19:24] LABS: ALT 37 U/L (9-52); AST 27 U/L (14-36); African American GFR (CKD) >90 (>60 ml/min/1.73 sqM); Albumin 4.4 g/dL (3.5-5.0); Alkaline Phosphatase 79 U/L (38-126); Amylase 49 U/L (30-110); Anion Gap 9 mmol/L; Blood Urea Nitrogen 7 mg/dL (7-17); Calcium 9.2 mg/dL (8.4-10.2); Carbon Dioxide 25 mmol/L (22-30); Chloride 104 mmol/L (98-107); Glucose 88 mg/dL (74-99); Potassium 3.5 mmol/L (3.5-5.1); Sodium 138 mmol/L (137-145); Total Bilirubin 0.6 mg/dL (0.2-1.3); Total Protein 7.2 g/dL (6.3-8.2)
[2019-04-16 19:46] LABS: HCG,Quantitative Serum 25966.4 mIU/mL
[2019-04-16 21:04] VITALS: BP 121/72; PULSE 78; RESP 18; TEMP 98.2
== END 2019-04-16 21:04 | disposition home or self-care (01) ==
LOC: EC 16:59
DX: O99.89 Other specified diseases and conditions complicating pregnancy, childbirth and the puerperium (principal); M54.5 Low back pain; O21.9 Vomiting of pregnancy, unspecified; R19.7 Diarrhea, unspecified; O99.341 Other mental disorders complicating pregnancy, first trimester; F41.9 Anxiety disorder, unspecified; Z88.0 Allergy status to penicillin; Z88.1 Allergy status to other antibiotic agents; Z88.2 Allergy status to sulfonamides; Z87.59 Personal history of other complications of pregnancy, childbirth and the puerperium; Z3A.01 Less than 8 weeks gestation of pregnancy; Z87.891 Personal history of nicotine dependence
CPT/HCPCS: 36415; 80053; 82150; 83690; 85025; 81001; 84702; 99284; 96374; 96375; 96361 ×2; J1200; J2765

== ENCOUNTER → 2020-06-07 | Outpatient (CLI) | payer OTHER | END | disposition home or self-care (01) | LOC: LABPAT 16:06 | PROVIDERS: ATTEND Urology | DX: U07.1 COVID-19 (principal) | CPT/HCPCS: U0003; C9803 ==

== ENCOUNTER 2020-06-14 11:48 | Day surgery (SDC) | payer OTHER ==
[2020-06-07 12:58] VITALS: BMI 34.9
[2020-06-14 12:15] VITALS: RESP 16; TEMP 97.8
[2020-06-14] MEDS ORDERED: LIDOCAINE 1% (10MG/ML) FOR IV START INTRADERMA ONE (12:21)
[2020-06-14] MEDS: LACTATED RINGERS 1,000 ML IV SCH ×2 (12:22→12:41)
[2020-06-14] MEDS ORDERED: PROPOFOL 10 MG/ML 20 ML VIAL IV ONE (12:42)
[2020-06-14] MEDS ORDERED: fentaNYL (PF) 50 MCG/ML 2 ML AMP ONE (12:42)
[2020-06-14] MEDS ORDERED: MIDAZOLAM 2 MG/2 ML VIAL ONE (12:42)
--- NOTE | 2020-06-14 13:18 | P.PCN ---
Date of Procedure: 06/14/20 Preoperative Diagnosis: Abdominal pain, diarrhea, nausea, history H pylori, history of colitis Postoperative Diagnosis: Abdominal pain, nausea, diarrhea, history of H. pylori, history of colitis, duodenal ulcer, colon polyps Procedure(s) Performed: EGD with biopsy, colonoscopy with biopsy and polypectomy Anesthesia: MAC Surgeon: Janie White Pathology: other Condition: stable Disposition: PACU Indications for Procedure: The patient has a long standing history of H. pylori and ulcers. She also has a distant history of colitis. Description of Procedure: The patient's taken to the endoscopy suite were gastroscope is passed per mouth to the third portion of the duodenum. Pharynx is unremarkable. The esophagus is without evidence of esophagitis or mass lesion. No evidence of hiatal hernia on insertion or retroflexion of the scope. The stomach was without evidence of polyp, mass lesion, ulcer or mucosal abnormality. Pylorus was unremarkable. In the bulb of the duodenum there was a 1 cm ulcer with some surrounding inflammation. Cold biopsies were obtained. The second third portions of the duodenum were unremarkable. Villous pattern appeared normal. She is then repositioned in a colonoscope is passed per rectum to the terminal ileum. She had excellent prep. There was a small polyp noted in the mid transverse colon biopsied and destroyed with hot biopsy forceps. Another small one at about 40 cm biopsied and destroyed with hot biopsy forceps. Otherwise the mucosa was without evidence of mass lesion, ulcer, other mucosal abnormality. No significant hemorrhoidal disease was seen on retroflexion of the scope. Some mucosal biopsies were obtained of the terminal ileum. Some random colonic biopsies were obtained and rectal biopsies were obtained to rule out microscopic colitis. She tolerated the procedure without difficulty and was taken recovery room in satisfactory condition. We'll call with report of the biopsies and had further recommendations to follow. If she is positive for H. pylori she'll need to follow-up with infectious disease for recommendations as this would be resistant H. pylori. Plan - Discharge Summary New Discharge Prescriptions: New Esomeprazole Magnesium [NexIUM 24Hr] 20 mg PO DAILY #90 tablet. No Action Ibuprofen [Motrin Ib] 400 mg PO DIRECTED PRN PRN Reason: Pain Discharge Medication List Ibuprofen [Motrin Ib] 400 mg PO DIRECTED PRN 06/07/20 [History] Esomeprazole Magnesium [NexIUM 24Hr] 20 mg PO DAILY #90 tablet. 06/14/20 [Rx] Discharge Disposition: HOME SELF-CARE
[2020-06-14] MEDS ORDERED: ACETAMINOPHEN TAB 325 MG TAB ONE (13:29)
[2020-06-14] MEDS ORDERED: ACETAMINOPHEN TAB 325 MG TAB PO ONE (13:30)
[2020-06-14 13:32] VITALS: BP 126/56; PULSE 69
== END 2020-06-14 14:04 | disposition home or self-care (01) ==
LOC: ORWHC2ENDO 11:48
PROVIDERS: ATTEND Surgery
DX: K63.5 Polyp of colon (principal); K26.9 Duodenal ulcer, unspecified as acute or chronic, without hemorrhage or perforation; K29.80 Duodenitis without bleeding; K21.9 Gastro-esophageal reflux disease without esophagitis; E05.90 Thyrotoxicosis, unspecified without thyrotoxic crisis or storm; R00.2 Palpitations; G43.909 Migraine, unspecified, not intractable, without status migrainosus; Z86.19 Personal history of other infectious and parasitic diseases; Z87.11 Personal history of peptic ulcer disease; Z87.19 Personal history of other diseases of the digestive system; Z98.890 Other specified postprocedural states; Z90.49 Acquired absence of other specified parts of digestive tract; Z87.2 Personal history of diseases of the skin and subcutaneous tissue; Z87.39 Personal history of other diseases of the musculoskeletal system and connective tissue; Z87.891 Personal history of nicotine dependence; Z88.0 Allergy status to penicillin; Z88.2 Allergy status to sulfonamides; Z88.1 Allergy status to other antibiotic agents; Z86.69 Personal history of other diseases of the nervous system and sense organs; Z79.1 Long term (current) use of non-steroidal anti-inflammatories (NSAID); Z82.49 Family history of ischemic heart disease and other diseases of the circulatory system; Z83.3 Family history of diabetes mellitus
CPT/HCPCS: 81025; 88305; 45380; 45384; 43239; J2250; J3010; J2704

== ENCOUNTER → 2020-09-01 | Outpatient (CLI) | payer OTHER ==
--- NOTE | 2020-09-01 12:47 | MR ---
EXAMINATION TYPE: MR brain wo con DATE OF EXAM: 09/01/2020 11:25 AM COMPARISON: NONE HISTORY: Headaches above eye region, vision changes left eye Multiplanar and multispin-echo imaging of the brain was performed . The ventricles, basal cisterns and sulci overlying the cerebral convexities are within normal limits. There is no evidence for midline shift or mass effect. Acute intracranial hemorrhage or extra-axial collection is not evident. There are a few small scattered nonspecific white matter changes seen. Foci are too small to characte rize. No acute edema is identified. The paranasal sinuses and mastoid air cells are well-aerated. IMPRESSION: There are a few small scattered nonspecific white matter changes seen. Foci are too small to characte rize. Otherwise unremarkable study.
== END | disposition home or self-care (01) ==
LOC: RADMRIMAIN 10:48
PROVIDERS: ATTEND Family Medicine
DX: R90.82 White matter disease, unspecified (principal)
CPT/HCPCS: 70551

== ENCOUNTER → 2022-04-12 | Outpatient (CLI) | payer BC, OTHER ==
--- NOTE | 2022-04-12 19:11 | US ---
EXAMINATION TYPE: US thyroid st tissue head/neck DATE OF EXAM: 04/12/2022 COMPARISON: 02/03/2019 CLINICAL HISTORY: E04.1 THYROID NODULE. GLAND SIZE: Right Lobe: 6.0 x 2.3 x 2.1 cm Overall Parenchyma: heterogenous Left Lobe: 4.4 x 1.7 x 1.5 cm Overall Parenchyma: homogeneous Isthmus Thickness: 0.6 cm NODULES RIGHT: # of nodules measured on right: 3 1. 1.3 X 1.0 x 1.2 cm, upper mid, cystic or almost completely cystic, anechoic nodule, which is xenia ler than wide, with smooth margins, without echogenic foci. Prior size: 0.6 x 0.5 x 0.7 cm 2. 0.9 X 0.6 x 1.0 cm, mid medial, mixed cystic and solid, hypoechoic nodule, which is taller than wide, with smooth margins, without echogenic foci. Prior size: not visualized 3. 2.1 X 1.5 x 1.9 cm, lower mid, solid or almost completely solid, hypoechoic nodule, which is xenia ler than wide, with smooth margins, without echogenic foci. TR 4 Prior size: 1.8 x 1.1 x 1.6 cm LEFT: # of nodules measured on left: 0 ISTHMUS: # of nodules measured in the isthmus: 0 Bilateral neck scanned, no evidence of lymphadenopathy. IMPRESSION: 1. Moderately suspicious nodule right lobe thyroid. Fine-needle aspiration is recommended. 2017 ACR TI-RADS LEVEL: *Highest TI-RADS level nodule reported
== END | disposition home or self-care (01) ==
LOC: RADUSWWP 16:12
PROVIDERS: ATTEND Family Medicine
DX: E04.1 Nontoxic single thyroid nodule (principal)
CPT/HCPCS: 76536

== ENCOUNTER → 2022-06-01 | Outpatient (CLI) | payer BC, OTHER ==
--- NOTE | 2022-06-01 12:09 | FL ---
EXAMINATION TYPE: FL barium swallow DATE OF EXAM: 06/01/2022 CLINICAL INDICATION: 41 year-old female with burning chest pain. K44.9 DIAPHRAGMATIC HERNIA WITHOUT OBSTRUCTION OR COMPARISON: None Total Fluoroscopy Time: 2 minutes 25 seconds 56 images obtained. FINDINGS: The swallowing mechanism is normal and hypopharyngeal anatomy is preserved. The cervical and thoracic portions have a normal course and caliber and normal motility. The mucosa i s normal and no persistent filling defect is encountered. There is a small hiatal hilar hernia demonstrated. Mild gastroesophageal reflux is elicited with Vals salvador in position maneuvers. Incidentally, there is moderate to significant focal thickening of the visualized stomach. IMPRESSION: 1. Small sliding hiatal hernia. Only mild gastroesophageal reflux could be elicited during the course of the exam. Suspect this to be underestimated given patient's symptoms. 2. Moderate to marked gastric fold thickening suggesting chronic gastritis.
== END | disposition home or self-care (01) ==
LOC: RADUSWWP 07:59
PROVIDERS: ATTEND Surgery Plastic and Reconstructive Surgery
DX: K21.9 Gastro-esophageal reflux disease without esophagitis (principal); K44.9 Diaphragmatic hernia without obstruction or gangrene
CPT/HCPCS: 74220

== ENCOUNTER 2022-07-06 07:47 | Day surgery (SDC) | payer BC, OTHER ==
--- NOTE | 2022-07-06 06:03 | P.GSHP ---
History of Present Illness H&P Date: 07/06/22 CHIEF COMPLAINT: GERD HISTORY OF PRESENT ILLNESS: The patient is a 41-year-old female who presents reports gastroesophageal reflux disease. Upper endoscopy was offered for further evaluation and management. PAST MEDICAL HISTORY: Please see list. PAST SURGICAL HISTORY: Please see list. MEDICATIONS: Please see list. ALLERGIES: Please see list. SOCIAL HISTORY: No illicit drug use FAMILY HISTORY: No reports of Crohn disease or ulcerative colitis. REVIEW OF ORGAN SYSTEMS: CONSTITUTIONAL: No reports of fevers or chills. GI: Denies any blood in stools or constipation. PHYSICAL EXAM: VITAL SIGNS: Stable GENERAL: Well-developed and pleasant in no acute distress. HEENT: No scleral icterus. Extraocular movements grossly intact. Moist buccal mucosa. NECK: Supple without lymphadenopathy. CHEST: Unlabored respirations. Equal bilateral excursions. CARDIOVASCULAR: Regular rate and rhythm. Distal 2+ pulses. ABDOMEN: Soft, nondistended. MUSCULOSKELETAL: No clubbing, cyanosis, or edema. ASSESSMENT: 1. Gastroesophageal reflux disease PLAN: 1. Recommend proceeding with an upper endoscopy Past Medical History Past Medical History: GERD/Reflux, Seizure Disorder, Thyroid Disorder Additional Past Medical History / Comment(s): GASTRIC ULCER. miscarriage in September 2018., hx perforated ulcer., H Pylori., last seizure 2004, colitis., hypoglycemia., thyroid nodules., hyperthyroid., migraines., palpitations., diarrhea History of Any Multi-Drug Resistant Organisms: None Reported Past Surgical History: Appendectomy, Cholecystectomy Additional Past Surgical History / Comment(s): D&C, pilonidal cyst, cyst removed from upper back, leep procedure, sx for perforated ulcer, edg/colonoscopy, D & C Past Anesthesia/Blood Transfusion Reactions: Previous Problems w/ Anesthesia, Motion Sickness Additional Past Anesthesia/Blood Transfusion Reaction / Comment(s): "shaky and low BP" Past Psychological History: No Psychological Hx Reported Smoking Status: Former smoker Past Alcohol Use History: None Reported Additional Past Alcohol Use History / Comment(s): quit smoking 08/2018, smoked from age 19, < 1 PPD Past Drug Use History: None Reported - Past Family History Brother(s) Family Medical History: Cancer Additional Family Medical History / Comment(s): lung cancer Medications and Allergies Home Medications Medication Instructions Recorded Confirmed Type Ibuprofen [Motrin Ib] 400 mg PO DIRECTED PRN 06/07/20 07/03/22 History Omeprazole 20 mg PO QMONTHLY 07/03/22 07/03/22 History Allergies Allergy/AdvReac Type Severity Reaction Status Date / Time Cephalosporins Allergy Severe Rash/Hives Verified 07/03/22 16:18 Penicillins Allergy Severe Rash/Hives Verified 07/03/22 16:18 Sulfa (Sulfonamide Allergy Severe Rash/Hives Verified 07/03/22 16:18 Antibiotics)
[~2022-07-06 07:47] MED LIST changes: +LACTATED RINGERS 1,000 ML IV SCH; -Pre Op ABX Message 1 EACH MISC MISCELLANE ONE
[2022-07-06 08:10] VITALS: RESP 16; TEMP 97.5
[2022-07-06] MEDS ORDERED: LIDOCAINE 1% (10MG/ML) FOR IV START INTRADERMA ONE (08:10)
[2022-07-06] MEDS ORDERED: LIDOCAINE 2% INJ 20 MG/ML (2 ML VIAL) ONE (08:33)
[2022-07-06] MEDS ORDERED: PROPOFOL 10 MG/ML 20 ML VIAL IV ONE (08:33)
--- NOTE | 2022-07-06 08:49 | P.PCN ---
Date of Procedure: 07/06/22 Description of Procedure: PREOPERATIVE DIAGNOSIS: Gastroesophageal reflux disease. Morbid obesity. POSTOPERATIVE DIAGNOSIS: Gastroesophageal reflux disease. Morbid obesity. Gastritis. OPERATION: Esophagogastroduodenoscopy with biopsies along antrum and duodenum SURGEON: Jessica Silvestre MD ANESTHESIA: MAC. INDICATIONS: The patient is a 41-year-old female who presents with reflux disease. Benefits and risks of the procedure were described. Informed consent was obtained. DESCRIPTION: The patient was brought into the endoscopy suite and laid in the left lateral decubitus position. An Olympus gastroscope was passed along the posterior oropharynx down to the distal esophagus where the squamocolumnar junction was encountered at 36 cm from the incisors. The stomach was entered and no bile reflux was found. Additional findings are listed below. Biopsies with cold forceps were obtained of the antrum. The first through third portion of the duodenum was examined. Retroflexion of the scope confirmed Hill grade 2 lower esophageal valve. The squamocolumnar junction demonstrated LA grade B erosive esophagitis. The stomach was desufflated. The patient tolerated the procedure well. FINDINGS: Squamocolumnar junction 36 cm from the incisors. Diaphragmatic hiatus at 36 cm. Hill grade 2 lower esophageal valve. LA grade B erosive esophagitis. Biopsies obtained of the duodenum Chronic gastritis RECOMMENDATIONS: Upper endoscopy as needed. Plan - Discharge Summary Discharge Rx Participant: No New Discharge Prescriptions: Continue Ibuprofen [Motrin Ib] 400 mg PO DIRECTED PRN PRN Reason: Pain Omeprazole 20 mg PO QMONTHLY Discharge Medication List Ibuprofen [Motrin Ib] 400 mg PO DIRECTED PRN 06/07/20 [History] Omeprazole 20 mg PO QMONTHLY 07/03/22 [History] Follow up Appointment(s)/Referral(s): Jessica Silvestre MD [STAFF PHYSICIAN] - 07/18/22 Patient Instructions/Handouts: GERD (Gastroesophageal Reflux Disease) (DC) Discharge Disposition: HOME SELF-CARE
[2022-07-06] MEDS ORDERED: KETOROLAC 15 MG/ML 1 ML VIAL ONE (09:00)
[2022-07-06] MEDS ORDERED: KETOROLAC 15 MG/ML 1 ML VIAL IVP ONE (09:00)
[2022-07-06 09:04] VITALS: BP 114/75; PULSE 73
== END 2022-07-06 09:51 | disposition home or self-care (01) ==
LOC: ORWHC2ENDO 07:47
PROVIDERS: ATTEND Surgery Plastic and Reconstructive Surgery
DX: K29.50 Unspecified chronic gastritis without bleeding (principal); K44.9 Diaphragmatic hernia without obstruction or gangrene; K21.9 Gastro-esophageal reflux disease without esophagitis; E66.01 Morbid (severe) obesity due to excess calories; G40.909 Epilepsy, unspecified, not intractable, without status epilepticus; E03.9 Hypothyroidism, unspecified; Z68.37 Body mass index [BMI] 37.0-37.9, adult; Z90.49 Acquired absence of other specified parts of digestive tract; Z87.891 Personal history of nicotine dependence; Z80.1 Family history of malignant neoplasm of trachea, bronchus and lung; Z79.1 Long term (current) use of non-steroidal anti-inflammatories (NSAID); Z88.1 Allergy status to other antibiotic agents; Z88.0 Allergy status to penicillin; Z88.2 Allergy status to sulfonamides; Z79.899 Other long term (current) drug therapy
CPT/HCPCS: 81025; 88305; 88342; 43239; J1885; J2704; J2001

== ENCOUNTER 2023-03-14 16:58 | Emergency (ER) | payer BC, OTHER ==
[2023-03-14] MEDS ORDERED: ONDANSETRON 4 MG/2 ML VIAL IVP STA (17:31)
[2023-03-14] MEDS ORDERED: KETOROLAC 15 MG/ML 1 ML VIAL IVP STA (17:31)
[2023-03-14] MEDS ORDERED: SODIUM CHLORIDE 0.9% 1,000 ML IV STA (17:31)
--- NOTE | 2023-03-14 17:36 | ED ---
Abdominal Pain HPI - General Chief Complaint: Abdominal Pain Stated Complaint: ABD PAIN Time Seen by Provider: 03/14/23 17:18 Source: patient Mode of arrival: ambulatory Limitations: no limitations - History of Present Illness Initial Comments: 42-year-old female past medical history significant for thyroid cancer status post resection presents to the ED with a chief complaint of abdominal pain. Patient states that she has had ongoing abdominal pain for the past 4-5 months. States that pain affects her lower abdomen. States that pain was initially intermittent in nature however over the past few days has become more constant. States that she was previously seen and had a CAT scan due to this that showed possible kidney stone passage but also noted findings suspicious for metastasis. States that she has an ultrasound follow-up scheduled for this however notes that do to the severity of the pain presented to the ED for further evaluation. Associated nausea and vomiting. Denies urinary symptoms. Denies changes in bowel habits. Denies chest pain or shortness of breath. - Related Data Home Medications Medication Instructions Recorded Confirmed Ibuprofen [Motrin Ib] 400 mg PO DIRECTED PRN 06/07/20 07/03/22 Omeprazole 20 mg PO QMONTHLY 07/03/22 07/03/22 Allergies Allergy/AdvReac Type Severity Reaction Status Date / Time Cephalosporins Allergy Severe Rash/Hives Verified 03/14/23 17:05 Penicillins Allergy Severe Rash/Hives Verified 03/14/23 17:05 Sulfa (Sulfonamide Allergy Severe Rash/Hives Verified 03/14/23 17:05 Antibiotics) Review of Systems ROS Statement: Those systems with pertinent positive or pertinent negative responses have been documented in the HPI. ROS Other: All systems not noted in ROS Statement are negative. Past Medical History Past Medical History: GERD/Reflux, Seizure Disorder, Thyroid Disorder Additional Past Medical History / Comment(s): GASTRIC ULCER. miscarriage in September 2018., hx perforated ulcer., H Pylori., last seizure 2004, colitis., hypoglycemia., thyroid nodules., hyperthyroid., migraines., palpitations., diarrhea. Thyroid cancer History of Any Multi-Drug Resistant Organisms: None Reported Past Surgical History: Appendectomy, Cholecystectomy Additional Past Surgical History / Comment(s): D&C, pilonidal cyst, cyst removed from upper back, leep procedure, sx for perforated ulcer, edg/colonoscopy, D & C Past Anesthesia/Blood Transfusion Reactions: Previous Problems w/ Anesthesia, Motion Sickness Additional Past Anesthesia/Blood Transfusion Reaction / Comment(s): "shaky and low BP" Past Psychological History: No Psychological Hx Reported Smoking Status: Former smoker Past Alcohol Use History: Occasional Past Drug Use History: None Reported - Past Family History Brother(s) Family Medical History: Cancer Additional Family Medical History / Comment(s): lung cancer General Exam Limitations: no limitations General appearance: alert, in distress Eye exam: Present: normal appearance Neck exam: Present: normal inspection Respiratory exam: Present: normal lung sounds bilaterally Cardiovascular Exam: Present: regular rate, normal rhythm GI/Abdominal exam: Present: soft, tenderness (Past palpation in the suprapubic region. No rebound guarding or rigidity.), normal bowel sounds Back exam: Present: normal inspection Neurological exam: Present: alert, oriented X3 Skin exam: Present: warm, dry Course Vital Signs 03/14/23 03/14/23 16:59 18:29 Temperature 98.4 F 98.5 F Pulse Rate 75 67 Respiratory 18 18 Rate Blood Pressure 140/88 129/78 O2 Sat by Pulse 98 96 Oximetry Medical Decision Making - Medical Decision Making Was pt. sent in by a medical professional or institution (, PA, ASSEMBLY LEADER, urgent care, hospital, or alf...) When possible be specific @ -No Did you speak to anyone other than the patient for history (EMS, parent, family, police, friend...)? What history was obtained from this source @ -No Did you review nursing and triage notes (agree or disagree)? Why? @ -I reviewed and agree with nursing and triage notes Were old charts reviewed (outside hosp., previous admission, EMS record, old EKG, old radiological studies, urgent care reports/EKG's, alf records)? Report findings @ -No old charts were reviewed Differential Diagnosis (chest pain, altered mental status, abdominal pain women, abdominal pain men, vaginal bleeding, weakness, fever, dyspnea, syncope, headache, dizziness, GI bleed, back pain, seizure, CVA, palpatations, mental health, musculoskeletal)? @ -Differential Abdominal Pain Women: Appendicitis, Cholecystitis, diverticulosis, ischemic bowel, pancreatitis, hepatitis, UTI, gastroenteritis, AAA, incarcerated hernia, bowel obstruction, constipation, inflammatory bowel, hepatitis, peptic ulcer disease, splenic infarction, perforated viscus, vulvitis, ovarian torsion, PID, kidney stone, placenta abruption, this is not meant to be an all-inclusive list EKG interpreted by me (3pts min.). @ -As above X-rays interpreted by me (1pt min.). @ -None done CT interpreted by me (1pt min.). @ -CT abdomen and pelvis shows no acute findings. U/S interpreted by me (1pt. min.). @ -None done What testing was considered but not performed or refused? (CT, X-rays, U/S, labs )? Why? @ -None What meds were considered but not given or refused? Why? @ -None Did you discuss the management of the patient with other professionals (professionals i.e. , PA, ASSEMBLY LEADER, lab, RT, psych nurse, social service agency director, information systems manager, teacher, gift officer, family preservation caseworker)? Give summary @ -No Was smoking cessation discussed for >3mins.? @ -No Was critical care preformed (if so, how long)? @ -No Were there social determinants of health that impacted care today? How? (Homelessness, low income, unemployed, alcoholism, drug addiction, transportation, low edu. Level, literacy, decrease access to med. care, alf, rehab)? @ -No Was there de-escalation of care discussed even if they declined (Discuss DNR or withdrawal of care, Hospice)? DNR status @ -No What co-morbidities impacted this encounter? (DM, HTN, Smoking, COPD, CAD, Cancer, CVA, ARF, Chemo, Hep., AIDS, mental health diagnosis, sleep apnea, morbid obesity)? @ -None Was patient admitted / discharged? Hospital course, mention meds given and route, prescriptions, significant lab abnormalities, going to OR and other pertinent info. @ -Discharge. CT of the abdomen and pelvis showed no acute findings. Laboratory studies here unremarkable. At this time, pain is well controlled after patient received morphine and Tylenol. Advised to follow-up for ultrasound as scheduled to rule out metastasis. Discharged home in stable condition. Discussed return precautions with patient who verbalizes agreement. Undiagnosed new problem with uncertain prognosis? @ -No Drug Therapy requiring intensive monitoring for toxicity (Heparin, Nitro, Insulin, Cardizem)? @ -No Were any procedures done? @ -No Diagnosis/symptom? @ -Abdominal pain Acute, or Chronic, or Acute on Chronic? @ -Acute on chronic Uncomplicated (without systemic symptoms) or Complicated (systemic symptoms)? @ -Uncomplicated Side effects of treatment? @ -No Exacerbation, Progression, or Severe Exacerbation? @ -No Poses a threat to life or bodily function? How? (Chest pain, USA, IA, pneumonia, PE, COPD, DKA, ARF, appy, cholecystitis, CVA, Diverticulitis, Homicidal, Suicidal, threat to staff... and all critical care pts) @ -No - Lab Data Result diagrams: 03/14/23 17:20 03/14/23 17:20 Lab Results 03/14/23 03/14/23 03/14/23 Range/Units 17:20 17:20 17:20 WBC 11.5 H (3.8-10.6) k/uL RBC 4.41 (3.80-5.40) m/uL Hgb 14.5 (11.4-16.0) gm/dL Hct 40.3 (34.0-46.0) % MCV 91.4 (80.0-100.0) fL MCH 32.9 (25.0-35.0) pg MCHC 36.0 (31.0-37.0) g/dL RDW 12.9 (11.5-15.5) % Plt Count 266 (150-450) k/uL MPV 8.1 Neutrophils % 71 % Lymphocytes % 19 % Monocytes % 6 % Eosinophils % 2 % Basophils % 1 % Neutrophils # 8.2 H (1.3-7.7) k/uL Lymphocytes # 2.2 (1.0-4.8) k/uL Monocytes # 0.6 (0-1.0) k/uL Eosinophils # 0.2 (0-0.7) k/uL Basophils # 0.1 (0-0.2) k/uL Sodium (137-145) mmol/L Potassium (3.5-5.1) mmol/L Chloride (98-107) mmol/L Carbon Dioxide (22-30) mmol/L Anion Gap mmol/L BUN (7-17) mg/dL Creatinine (0.52-1.04) mg/dL Est GFR (CKD-EPI)AfAm (>60 ml/min/1.73 sqM) Est GFR (CKD-EPI)NonAf (>60 ml/min/1.73 sqM) Glucose (74-99) mg/dL Calcium (8.4-10.2) mg/dL Total Bilirubin (0.2-1.3) mg/dL AST (14-36) U/L ALT (4-34) U/L Alkaline Phosphatase (38-126) U/L Troponin I (0.000-0.034) ng/mL Total Protein (6.3-8.2) g/dL Albumin (3.5-5.0) g/dL Amylase (30-110) U/L Lipase (23-300) U/L Urine Color Light Yellow Urine Appearance Clear (Clear) Urine pH 5.5 (5.0-8.0) Ur Specific Earling 1.023 (1.001-1.035) Urine Protein Negative (Negative) Urine Glucose (UA) Negative (Negative) Urine Ketones Negative (Negative) Urine Blood Small H (Negative) Urine Nitrite Negative (Negative) Urine Bilirubin Negative (Negative) Urine Urobilinogen <2.0 (<2.0) mg/dL Ur Leukocyte Esterase Negative (Negative) Urine RBC 1 (0-5) /hpf Ur Squamous Epith Cells 1 (0-4) /hpf Urine Mucus Rare H (None) /hpf Urine HCG, Qual Not Detected (Not Detectd) 03/14/23 03/14/23 Range/Units 17:20 17:20 WBC (3.8-10.6) k/uL RBC (3.80-5.40) m/uL Hgb (11.4-16.0) gm/dL Hct (34.0-46.0) % MCV (80.0-100.0) fL MCH (25.0-35.0) pg MCHC (31.0-37.0) g/dL RDW (11.5-15.5) % Plt Count (150-450) k/uL MPV Neutrophils % % Lymphocytes % % Monocytes % % Eosinophils % % Basophils % % Neutrophils # (1.3-7.7) k/uL Lymphocytes # (1.0-4.8) k/uL Monocytes # (0-1.0) k/uL Eosinophils # (0-0.7) k/uL Basophils # (0-0.2) k/uL Sodium 137 (137-145) mmol/L Potassium 4.2 (3.5-5.1) mmol/L Chloride 105 (98-107) mmol/L Carbon Dioxide 23 (22-30) mmol/L Anion Gap 9 mmol/L BUN 12 (7-17) mg/dL Creatinine 0.58 (0.52-1.04) mg/dL Est GFR (CKD-EPI)AfAm >90 (>60 ml/min/1.73 sqM) Est GFR (CKD-EPI)NonAf >90 (>60 ml/min/1.73 sqM) Glucose 83 (74-99) mg/dL Calcium 9.0 (8.4-10.2) mg/dL Total Bilirubin 0.6 (0.2-1.3) mg/dL AST 31 (14-36) U/L ALT 34 (4-34) U/L Alkaline Phosphatase 108 (38-126) U/L Troponin I <0.012 (0.000-0.034) ng/mL Total Protein 7.4 (6.3-8.2) g/dL Albumin 4.3 (3.5-5.0) g/dL Amylase 46 (30-110) U/L Lipase 125 (23-300) U/L Urine Color Urine Appearance (Clear) Urine pH (5.0-8.0) Ur Specific Earling (1.001-1.035) Urine Protein (Negative) Urine Glucose (UA) (Negative) Urine Ketones (Negative) Urine Blood (Negative) Urine Nitrite (Negative) Urine Bilirubin (Negative) Urine Urobilinogen (<2.0) mg/dL Ur Leukocyte Esterase (Negative) Urine RBC (0-5) /hpf Ur Squamous Epith Cells (0-4) /hpf Urine Mucus (None) /hpf Urine HCG, Qual (Not Detectd) Disposition Clinical Impression: Abdominal pain Disposition: HOME SELF-CARE Condition: Good Instructions (If sedation given, give patient instructions): Abdominal Pain (ED) Additional Instructions: Please return to the Emergency Department if symptoms worsen or any other concerns. Is patient prescribed a controlled substance at d/c from ED?: No Referrals: Nonstaff,Physician [REFERRING] - 1-2 days Time of Disposition: 20:37
[2023-03-14 18:00] LABS: Basophils # (A) 0.1 k/uL (0-0.2); Basophils % (A) 1 %; Eosinophils # (A) 0.2 k/uL (0-0.7); Eosinophils % (A) 2 %; HCT 40.3 % (34.0-46.0); HGB 14.5 gm/dL (11.4-16.0); Lymphocytes # (A) 2.2 k/uL (1.0-4.8); Lymphocytes % (A) 19 %; MCH 32.9 pg (25.0-35.0); MCV 91.4 fL (80.0-100.0); Mean Platelet Volume 8.1; Monocytes # (A) 0.6 k/uL (0-1.0); Monocytes % (A) 6 %; Neutrophils # (A) 8.2 k/uL (1.3-7.7); Neutrophils % (A) 71 %; Platelet Count 266 k/uL (150-450); RBC 4.41 m/uL (3.80-5.40); RDW 12.9 % (11.5-15.5); WBC 11.5 k/uL (3.8-10.6)
[2023-03-14 18:16] LABS: ALT 34 U/L (4-34); AST 31 U/L (14-36); African American GFR (CKD) >90 (>60 ml/min/1.73 sqM); Albumin 4.3 g/dL (3.5-5.0); Alkaline Phosphatase 108 U/L (38-126); Amylase 46 U/L (30-110); Anion Gap 9 mmol/L; Blood Urea Nitrogen 12 mg/dL (7-17); Carbon Dioxide 23 mmol/L (22-30); Chloride 105 mmol/L (98-107); Glucose 83 mg/dL (74-99); Lipase 125 U/L (23-300); Non-African American GFR(CKD) >90 (>60 ml/min/1.73 sqM); Potassium 4.2 mmol/L (3.5-5.1); Sodium 137 mmol/L (137-145); Total Bilirubin 0.6 mg/dL (0.2-1.3); Total Protein 7.4 g/dL (6.3-8.2)
[2023-03-14 18:22] LABS: Appearance,Urine Clear (Clear); Bilirubin,Urine Negative (Negative); Blood,Urine Small (Negative); Color,Urine Light Yellow; Glucose,Urine (UA) Negative (Negative); Ketones,Urine Negative (Negative); Leukocyte Esterase,Urine Negative (Negative); Mucus,Urine Rare /hpf; Nitrite,Urine Negative (Negative); PH, Urine 5.5 (5.0-8.0); Protein,Urine Negative (Negative); RBC,Urine 1 /hpf (0-5); Specific Gravity,Urine 1.023 (1.001-1.035); Squamous Epithelial Cell,Urine 1 /hpf (0-4); Urobilinogen,Urine <2.0 mg/dL (<2.0)
[2023-03-14] MEDS ORDERED: MORPHINE SULFATE 4 MG/ML SYRINGE IVP STA (18:54)
[2023-03-14] MEDS ORDERED: ACETAMINOPHEN TAB 500 MG TAB PO STA (19:18)
--- NOTE | 2023-03-14 20:08 | CT ---
EXAMINATION TYPE: CT abdomen pelvis w con DATE OF EXAM: 03/14/2023 COMPARISON: 02/24/2015 HISTORY: 42-year-old female lower abdominal pain x3 months, nausea, h/o thyroid CA TECHNIQUE: Contiguous axial scanning of the abdomen and pelvis following administration of 100 ml Iso iesha 300 IV contrast. Delayed images through the kidneys and coronal/sagittal reconstructions perform ed. CT DLP: 1370.5 mGycm Automated exposure control for dose reduction was used. FINDINGS: LUNG BASES: No significant abnormality is appreciated. LIVER/GB: Redemonstrated are innumerable small hepatic cysts measuring up to 9 mm. Portal venous syst em is patent. No biliary ductal dilatation. Cholecystectomy clips. PANCREAS: No significant abnormality is seen. SPLEEN: Single punctate calcified granuloma in the spleen. The spleen is mildly enlarged at 14.1 cm. ADRENALS: No significant abnormality is seen. KIDNEYS: 6 mm nonobstructive calculus upper pole right kidney. Symmetric uptake and excretion of cont rast from both sides. BOWEL: Nondilated small bowel, free fluid, or free air. Mild stool burden. No pericolonic inflammator y change. LYMPH NODES: No greater than 1cm abdominal or pelvic lymph nodes are appreciated. PELVIS: Uterus anteverted. Bladder is urine distended. Both ovaries are visualized. No abnormal fluid collection the pelvis or pelvic lymphadenopathy. Phlebolith right side of the pelvis. OSSEOUS STRUCTURES: No significant abnormality is seen. OTHER: No significant additional abnormality is seen. IMPRESSION: 1. NUMEROUS SMALL HEPATIC CYSTS REDEMONSTRATED MEASURING UP TO 9 MM, UNCHANGED FROM 2014. STATUS POST CHOLECYSTECTOMY. 2. MILD SPLENOMEGALY MEASURING 14.1 CM; CLINICALLY CORRELATE. 3. A 6 MM NONOBSTRUCTIVE RIGHT RENAL CALCULUS.
[2023-03-14 21:00] VITALS: BP 127/92; PULSE 64; RESP 16; TEMP 98.2
== END 2023-03-14 20:58 | disposition home or self-care (01) ==
LOC: EC 16:58
DX: N20.0 Calculus of kidney (principal); K76.89 Other specified diseases of liver; K21.9 Gastro-esophageal reflux disease without esophagitis; Z87.891 Personal history of nicotine dependence; Z88.0 Allergy status to penicillin; Z88.2 Allergy status to sulfonamides; Z88.8 Allergy status to other drugs, medicaments and biological substances; Z88.1 Allergy status to other antibiotic agents; Z90.49 Acquired absence of other specified parts of digestive tract
CPT/HCPCS: 36415; 93005; 80053; 82150; 83690; 84484; 85025; 81001; 81025; 74177; 99285; 96374; 96361; J1885; Q9967

== ENCOUNTER 2023-06-15 12:28 | Emergency (ER) | payer BC, OTHER ==
--- NOTE | 2023-06-15 12:43 | ED ---
Headache HPI - General Chief Complaint: Headache Stated Complaint: R Back Head has Bump Time Seen by Provider: 06/15/23 12:42 Source: patient, RN notes reviewed Mode of arrival: ambulatory Limitations: no limitations - History of Present Illness Initial Comments: Patient is a 42-year-old female presented ER with chief complaint of a headache. Patient states when on for about 3 weeks. She states the headache has been on and off since then. She also reports bump behind her right ear with is very tender to touch. She noticed the bump on Sunday. She denies head trauma, nausea, vomiting, photophobia, double or blurry vision, fever, chills, or nightsweats. - Related Data Home Medications Medication Instructions Recorded Confirmed Ibuprofen [Motrin Ib] 400 mg PO DIRECTED PRN 06/07/20 07/03/22 Omeprazole 20 mg PO QMONTHLY 07/03/22 07/03/22 Allergies Allergy/AdvReac Type Severity Reaction Status Date / Time Cephalosporins Allergy Severe Rash/Hives Verified 06/15/23 12:34 Penicillins Allergy Severe Rash/Hives Verified 06/15/23 12:34 Sulfa (Sulfonamide Allergy Severe Rash/Hives Verified 06/15/23 12:34 Antibiotics) Review of Systems ROS Statement: Those systems with pertinent positive or pertinent negative responses have been documented in the HPI. ROS Other: All systems not noted in ROS Statement are negative. Past Medical History Past Medical History: GERD/Reflux, Seizure Disorder, Thyroid Disorder Additional Past Medical History / Comment(s): GASTRIC ULCER. miscarriage in September 2018., hx perforated ulcer., H Pylori., last seizure 2004, colitis., hypoglycemia., thyroid nodules., hyperthyroid., migraines., palpitations., diarrhea. Thyroid cancer History of Any Multi-Drug Resistant Organisms: None Reported Past Surgical History: Appendectomy, Cholecystectomy Additional Past Surgical History / Comment(s): D&C, pilonidal cyst, cyst removed from upper back, leep procedure, sx for perforated ulcer, edg/colonoscopy, D & C Past Anesthesia/Blood Transfusion Reactions: Previous Problems w/ Anesthesia, Motion Sickness Additional Past Anesthesia/Blood Transfusion Reaction / Comment(s): "shaky and low BP" Past Psychological History: No Psychological Hx Reported Smoking Status: Former smoker Past Alcohol Use History: Occasional Past Drug Use History: None Reported - Past Family History Brother(s) Family Medical History: Cancer Additional Family Medical History / Comment(s): lung cancer General Exam Limitations: no limitations General appearance: alert, in no apparent distress Head exam: Present: atraumatic, normocephalic, normal inspection, other (small tender area posterior to right ear. ) Eye exam: Present: normal appearance, PERRL, EOMI. Absent: scleral icterus, conjunctival injection, periorbital swelling Pupils: Present: normal accommodation ENT exam: Present: normal exam, mucous membranes moist Neck exam: Present: tenderness (bilateral cervical spine) Respiratory exam: Present: normal lung sounds bilaterally. Absent: respiratory distress, wheezes, rales, rhonchi, stridor Cardiovascular Exam: Present: regular rate, normal rhythm, normal heart sounds. Absent: systolic murmur, diastolic murmur, rubs, gallop, clicks Neurological exam: Present: alert, oriented X3, CN II-XII intact Psychiatric exam: Present: normal affect, normal mood Skin exam: Present: warm, dry, intact, normal color. Absent: rash Course Vital Signs 06/15/23 12:32 Temperature 98.1 F Pulse Rate 68 Respiratory 20 Rate Blood Pressure 135/78 O2 Sat by Pulse 100 Oximetry Medical Decision Making - Medical Decision Making Was pt. sent in by a medical professional or institution ([facility]IMBER[facility], FIELD INSTRUCTOR, urgent care, hospital, or care home...) When possible be specific @ -No Did you speak to anyone other than the patient for history (EMS, parent, family, police, friend...)? What history was obtained from this source @ -No Did you review nursing and triage notes (agree or disagree)? Why? @ -I reviewed and agree with nursing and triage notes Were old charts reviewed (outside hosp., previous admission, EMS record, old EKG, old radiological studies, urgent care reports/EKG's, care home records)? Report findings @ -No old charts were reviewed Differential Diagnosis (chest pain, altered mental status, abdominal pain women, abdominal pain men, vaginal bleeding, weakness, fever, dyspnea, syncope, headache, dizziness, GI bleed, back pain, seizure, CVA, palpatations, mental health, musculoskeletal)? @ -Differential Headache:Migraine, tension, cluster, carbon monoxide, central venous thrombosis, pension karma temporal arteritis, acute closure glaucoma, intercranial hemorrhage, mastoiditis, sinusitis, head injury, this is not meant to be an all-inclusive list.licable EKG interpreted by me (3pts min.). @ -None X-rays interpreted by me (1pt min.). @ -None done CT interpreted by me (1pt min.). @ -CT brain shows no acute intracranial process. U/S interpreted by me (1pt. min.). @ -None done What testing was considered but not performed or refused? (CT, X-rays, U/S, labs)? Why? @ -None What meds were considered but not given or refused? Why? @ -None Did you discuss the management of the patient with other professionals (professionals i.e. , PA, FIELD INSTRUCTOR, lab, RT, psych nurse, social sciences chair, dispatcher tow truck, teacher, cra officer, rn field case manager)? Give summary @ -No Was smoking cessation discussed for >3mins.? @ -No Was critical care preformed (if so, how long)? @ -No Were there social determinants of health that impacted care today? How? (Homelessness, low income, unemployed, alcoholism, drug addiction, transportation, low edu. Level, literacy, decrease access to med. care, prison, rehab)? @ -No Was there de-escalation of care discussed even if they declined (Discuss DNR or withdrawal of care, Hospice)? DNR status @ -No What co-morbidities impacted this encounter? (DM, HTN, Smoking, COPD, CAD, Cancer, CVA, ARF, Chemo, Hep., AIDS, mental health diagnosis, sleep apnea, morbid obesity)? @ -None Was patient admitted / discharged? Hospital course, mention meds given and route, prescriptions, significant lab abnormalities, going to OR and other pertinent info. @ -Discharged. On examination, the patient's vital signs remained stable. Pupils were equal round and reactive. There is no signs of trauma. CT brain showed no acute intracranial process. Patient received by mouth Tylenol for symptom control in the ER. I discussed with the patient to take [id number] Tylenol and Motrin for pain control. Patient be discharged in stable condition with follow- up to PCP. Return parameters were discussed. Patient expressed understanding and agreement with care plan. Undiagnosed new problem with uncertain prognosis? @ -No Drug Therapy requiring intensive monitoring for toxicity (Heparin, Nitro, Insulin, Cardizem)? @ -No Were any procedures done? @ -No Diagnosis/symptom? @ -Headache Acute, or Chronic, or Acute on Chronic? @ -Acute Uncomplicated (without systemic symptoms) or Complicated (systemic symptoms)? @ -Uncomplicated Side effects of treatment? @ -No Exacerbation, Progression, or Severe Exacerbation? @ -No Poses a threat to life or bodily function? How? (Chest pain, [place], [place], pneumonia, PE, COPD, DKA, ARF, appy, cholecystitis, CVA, Diverticulitis, Homicidal, Suicidal, threat to staff... and all critical care pts) @ -No - Radiology Data Radiology results: report reviewed, image reviewed Disposition Clinical Impression: Headache Disposition: HOME SELF-CARE Condition: Stable Instructions (If sedation given, give patient instructions): Acute Headache (ED) Additional Instructions: Please return to the Emergency Department if symptoms worsen or any other concerns. Is patient prescribed a controlled substance at d/c from ED?: No Referrals: None,Stated [Primary Care Provider] - 1-2 days Time of Disposition: 17:16
[2023-06-15] MEDS ORDERED: ACETAMINOPHEN TAB 325 MG TAB PO STA (16:27)
--- NOTE | 2023-06-15 16:43 | CT ---
EXAMINATION TYPE: CT brain wo con DATE OF EXAM: 06/15/2023 COMPARISON: 03/13/2013 INDICATION: Headaches, pt discovered a painful bump on her head yesterday, no injury. DLP: 1081.4 mGycm, Automated exposure control for dose reduction was used. CONTRAST: None CT of the brain is performed utilizing 3 mm thick sections through the posterior fossa and 3 mm thick sections through the remaining calvarium. Study is performed within 24 hours of arrival to the hosp ital. No abnormal hyperdensity is present to suggest an acute intracranial hemorrhage. No mass lesion is evident. No acute infarcts are evident. Ventricles and sulci are appropriate for the patient age. Paranasal sinuses and mastoid air cells within the [id number] are clear. IMPRESSION: 1. No acute intracranial process. Follow-up MRI can be performed as clinically indicated
[2023-06-15 18:14] VITALS: BP 155/87; PULSE 65; RESP 18; TEMP 98.4
== END 2023-06-15 18:04 | disposition home or self-care (01) ==
LOC: EC 12:28
DX: R51.9 Headache, unspecified (principal); K21.9 Gastro-esophageal reflux disease without esophagitis; Z79.899 Other long term (current) drug therapy; Z87.891 Personal history of nicotine dependence; Z88.0 Allergy status to penicillin; Z88.2 Allergy status to sulfonamides; Z88.8 Allergy status to other drugs, medicaments and biological substances
CPT/HCPCS: 70450; 99284

== ENCOUNTER → 2024-01-31 | Outpatient (CLI) | payer OTHER ==
--- NOTE | 2024-01-31 15:26 | CT ---
EXAMINATION TYPE: CT abdomen pelvis w con DATE OF EXAM: 01/31/2024 COMPARISON: 03/14/2023 HISTORY: ACUTE GASTRITIS WITHOUT BLEEDING. pain, bloating, diarrhea since 01/15. hx of thyroid ca. pt h as had thyroid and appendix removal. CT DLP: 1658.2 mGycm CONTRAST: CT scan of the abdomen and pelvis is performed with Oral Contrast and with IV Contrast, patient injec ramy with 100ml mL of Isovue 370. FINDINGS: LUNG BASES-: No visible nodule. No infiltrate. LIVER/GB: The gallbladder is surgically absent. Multiple tiny hypoattenuating lesions throughout th e liver compatible with tiny cysts. No additional space occupying hepatic lesion. Biliary tree is of normal caliber. PANCREAS: No inflammation. No distinct mass. SPLEEN: No splenic enlargement. No lesion seen. ADRENALS: No nodule. No thickening. KIDNEYS/BLADDER: No hydronephrosis. No nephrolithiasis. No distinct renal mass. Urinary bladder g rossly unremarkable. BOWEL: Nonvisualization of the appendix. Wall thickening of the gastric fundus may reflect underlying gastritis. Consider direct visualization. Normal bowel caliber. No inflammation. GENITAL ORGANS: 2.2 cm left ovarian cyst. Uterus and right ovary are unremarkable. LYMPH NODES: No greater than 1cm abdominal or pelvic lymph nodes are appreciated. AORTA: No significant abnormality. OSSEOUS STRUCTURES: No significant abnormality is seen. OTHER: No significant additional abnormality is seen. IMPRESSION: 1. Wall thickening of the gastric fundus may reflect underlying gastritis. Consider direct visualizat ion. 2.Multiple tiny hypoattenuating lesions throughout the liver compatible with tiny cysts.
== END | disposition home or self-care (01) ==
LOC: RADCTMAIN 13:18
PROVIDERS: ATTEND Family Medicine
DX: K29.00 Acute gastritis without bleeding (principal); K56.49 Other impaction of intestine; K76.89 Other specified diseases of liver
CPT/HCPCS: 74177; Q9967

== ENCOUNTER → 2024-04-02 | Day surgery (SDC) | payer OTHER ==
[2024-03-31 13:48] VITALS: BMI 37.8
[~2024-04-02] MED LIST changes: -LACTATED RINGERS 1,000 ML IV SCH; +LIDOCAINE 1% INJ 10MG/ML (20 ML MDV) ONE; +PROPOFOL 10 MG/ML 20 ML VIAL IV ONE
--- NOTE | 2024-04-02 08:37 | P.GSHP ---
History of Present Illness H&P Date: 04/02/24 CHIEF COMPLAINT: H. pylori gastritis with gastroesophageal reflux disease HISTORY OF PRESENT ILLNESS: The patient is a 43-year-old male who presents reports H. pylori gastritis with gastroesophageal reflux disease over 1 year. Upper endoscopy was offered for further evaluation and management. PAST MEDICAL HISTORY: Please see list. PAST SURGICAL HISTORY: Please see list. MEDICATIONS: Please see list. ALLERGIES: Please see list. SOCIAL HISTORY: No illicit drug use FAMILY HISTORY: No reports of Crohn disease or ulcerative colitis. REVIEW OF ORGAN SYSTEMS: CONSTITUTIONAL: No reports of fevers or chills. GI: Epigastric pain with H. pylori gastritis PHYSICAL EXAM: VITAL SIGNS: Stable GENERAL: Well-developed and pleasant in no acute distress. HEENT: No scleral icterus. Extraocular movements grossly intact. Moist buccal mucosa. NECK: Supple without lymphadenopathy. CHEST: Unlabored respirations. Equal bilateral excursions. CARDIOVASCULAR: Regular rate and rhythm. Distal 2+ pulses. ABDOMEN: Soft, nondistended. MUSCULOSKELETAL: No clubbing, cyanosis, or edema. ASSESSMENT: 1. Gastroesophageal reflux disease 2. H. pylori gastritis PLAN: 1. Recommend proceeding with an upper endoscopy Past Medical History Past Medical History: GERD/Reflux, Seizure Disorder, Thyroid Disorder Additional Past Medical History / Comment(s): GASTRIC ULCER. miscarriage in September 2018., hx perforated ulcer., H Pylori., last seizure 2004, colitis., hypoglycemia., thyroid nodules., hyperthyroid., migraines., palpitations., diarrhea. Thyroid cancer History of Any Multi-Drug Resistant Organisms: None Reported Past Surgical History: Appendectomy, Cholecystectomy Additional Past Surgical History / Comment(s): D&C, pilonidal cyst, cyst removed from upper back, leep procedure, sx for perforated ulcer, edg/colonoscopy, D & C thyroid surgery cancer half side removed Past Anesthesia/Blood Transfusion Reactions: Previous Problems w/ Anesthesia, Motion Sickness Additional Past Anesthesia/Blood Transfusion Reaction / Comment(s): "shaky and low BP", no blood transfusion Smoking Status: Former smoker - Past Family History Brother(s) Family Medical History: Cancer Additional Family Medical History / Comment(s): lung cancer Medications and Allergies Home Medications Medication Instructions Recorded Confirmed Type Ibuprofen [Motrin Ib] 400 mg PO DIRECTED PRN 06/07/20 03/31/24 History Omeprazole 20 mg PO QMONTHLY 07/03/22 03/31/24 History Allergies Allergy/AdvReac Type Severity Reaction Status Date / Time Cephalosporins Allergy Severe Rash/Hives Verified 03/31/24 13:43 Penicillins Allergy Severe Rash/Hives Verified 03/31/24 13:43 Sulfa (Sulfonamide Allergy Severe Rash/Hives Verified 03/31/24 13:43 Antibiotics)
[2024-04-02] MEDS: IV FLUID CONTINUATION 1,000 ML IV ONE (09:47)
[2024-04-02 09:49] VITALS: TEMP 97
[2024-04-02] MEDS: LACTATED RINGERS 1,000 ML IV SCH (09:52)
[2024-04-02 10:42] VITALS: RESP 14
[2024-04-02 10:57] VITALS: BP 110/69; PULSE 70
--- NOTE | 2024-04-02 11:08 | P.PCN ---
Date of Procedure: 04/02/24 Description of Procedure: PREOPERATIVE DIAGNOSIS: H. pylori gastritis Gastroesophageal reflux disease. Morbid obesity. POSTOPERATIVE DIAGNOSIS: Gastroesophageal reflux disease. Morbid obesity. Gastritis. Diaphragmatic hiatal hernia OPERATION: Esophagogastroduodenoscopy with biopsies along esophagus, antrum and duodenum SURGEON: Jessica Silvestre MD ANESTHESIA: MAC. INDICATIONS: The patient is a 43-year-old female who presents with H. pylori gastritis and reflux disease. Benefits and risks of the procedure were described. Informed consent was obtained. DESCRIPTION: The patient was brought into the endoscopy suite and laid in the left lateral decubitus position. An Olympus gastroscope was passed along the posterior oropharynx down to the distal esophagus where the squamocolumnar junction was encountered at 36 cm from the incisors. The stomach was entered and no bile reflux was found. Additional findings are listed below. Biopsies with cold forceps were obtained of the antrum. The first through third portion of the duodenum was examined. Retroflexion of the scope confirmed Hill grade 2 lower esophageal valve. The squamocolumnar junction demonstrated LA grade B erosive esophagitis. The stomach was desufflated. The patient tolerated the procedure well. FINDINGS: Squamocolumnar junction 36 cm from the incisors. Diaphragmatic hiatus at 38 cm. Hiatal hernia, 2 cm Hill grade 2 lower esophageal valve. LA grade B erosive esophagitis. Biopsies obtained. Biopsies obtained of the duodenum. Chronic gastritis with biopsies obtained. RECOMMENDATIONS: Upper endoscopy as needed. Plan - Discharge Summary Discharge Rx Participant: No New Discharge Prescriptions: Continue Omeprazole 20 mg PO DAILY Discontinued Ibuprofen [Motrin Ib] 400 mg PO DIRECTED PRN PRN Reason: Pain Discharge Medication List Omeprazole 20 mg PO DAILY 07/03/22 [History] Follow up Appointment(s)/Referral(s): Bariatric [place], [place] [NON-STAFF] - 04/23/24 4:00 pm Patient Instructions/Handouts: *Surgery [facility] - (Anesthesia) Discharge Instructions Outpatient Surgery, Hiatal Hernia (DC), Gastritis (DC), GERD (Gastroesophageal Reflux Disease) (DC), Upper Endoscopy (DC) Discharge Disposition: HOME SELF-CARE
--- NOTE | 2024-04-02 11:09 | P.PN ---
Progress Note - Text Progress Note Date: 04/02/24 Patient reports chronic diarrhea. She is on omeprazole. Recommend follow-up as outpatient for further management. May need colonoscopy due to change in bowel habits.
== END | disposition home or self-care (01) ==
LOC: ORWHC2ENDO 09:15
PROVIDERS: ATTEND Surgery Plastic and Reconstructive Surgery
DX: K21.00 Gastro-esophageal reflux disease with esophagitis, without bleeding (principal); K29.00 Acute gastritis without bleeding; B96.81 Helicobacter pylori [H. pylori] as the cause of diseases classified elsewhere; D72.820 Lymphocytosis (symptomatic); K44.9 Diaphragmatic hernia without obstruction or gangrene; E66.01 Morbid (severe) obesity due to excess calories; G40.909 Epilepsy, unspecified, not intractable, without status epilepticus; Z79.899 Other long term (current) drug therapy; Z80.1 Family history of malignant neoplasm of trachea, bronchus and lung; Z85.850 Personal history of malignant neoplasm of thyroid; Z87.891 Personal history of nicotine dependence; Z88.0 Allergy status to penicillin; Z88.1 Allergy status to other antibiotic agents; Z88.2 Allergy status to sulfonamides; Z90.49 Acquired absence of other specified parts of digestive tract
CPT/HCPCS: 81025; 88305; 43239; J2001; J2704

== ENCOUNTER → 2024-12-02 | Outpatient (CLI) | payer OTHER ==
--- NOTE | 2024-12-03 07:46 | MM ---
Reason for Exam: Screening (asymptomatic). Baseline mammogram. Patient History: Menarche at age 12. First Full-Term at age 19. Paternal aunt had ovarian cancer, age 59. Last menstrual period: 11/21/2024 Risk Values: Aleshia 5 year model risk: 0.6%. NCI Lifetime model risk: 7.8%. Prior Study Comparison: Patient's first Mammogram. Tissue Density: The breasts are heterogeneously dense, which may obscure small masses. Findings: Analyzed By CAD. Right breast: Asymmetric fibroglandular tissue in the upper outer quadrant. Left breast: Asymmetric fibroglandular tissue posterior nipple line CC view middle depth and upper aspect on the MLO view. Overall Assessment: Incomplete: need additional imaging evaluation, BI-RAD 0 Management: Diagnostic Mammogram of both breasts. 3-D imaging recommended bilateral breasts with spot compression. [facility] will attempt to contact patient to return for supplemental views and ultrasound if indicated. Patient should continue monthly self-breast exams. A clinical breast exam by your physician is recommended on an annual basis. This exam should not preclude additional follow-up of suspicious palpable abnormalities. Note on Aleshia scores and lifetime risk: 1. A Aleshia score greater than 3% is considered moderate risk. If this is the case, consider specialist referral to assess eligibility for a risk reducing agent. 2. If overall lifetime risk for the development of breast cancer is 20% or higher, the patient may qualify for future screening with alternating mammogram and breast MRI. [facility], , 12/03/2024 7:43 AM. Electronically signed and approved by: Bala Ornelas DO
== END | disposition home or self-care (01) ==
LOC: RADMAMWWP 15:52
PROVIDERS: ATTEND Family Medicine
DX: Z12.31 Encounter for screening mammogram for malignant neoplasm of breast (principal); R92.333 Mammographic heterogeneous density, bilateral breasts
CPT/HCPCS: 77067

== ENCOUNTER → 2024-12-04 | Outpatient (CLI) | payer OTHER ==
--- NOTE | 2024-12-04 15:28 | MM ---
Reason for Exam: Additional evaluation requested from abnormal screening. Last screening mammogram was performed less than 1 month ago. Patient History: Menarche at age 12. First Full-Term at age 19. Paternal aunt had ovarian cancer, age 59. Risk Values: Aleshia 5 year model risk: 0.6%. NCI Lifetime model risk: 7.8%. Prior Study Comparison: 12/02/2024 Bilateral MG screening mammo w CAD, [facility]. Tissue Density: The breasts are heterogeneously dense, which may obscure small masses. Findings: Analyzed By CAD. Area of concern/asymmetry compresses out on spot compression imaging. No suspicious masses, calcifications or distortions. Intramammary Lymph nodes in the right upper outer quadrant. Overall Assessment: Benign, BI-RAD 2 Management: Screening Mammogram of both breasts in 1 year. Results were given to the patient verbally at the time of exam. Patient should continue monthly self-breast exams. A clinical breast exam by your physician is recommended on an annual basis. This exam should not preclude additional follow-up of suspicious palpable abnormalities. Note on Aleshia scores and lifetime risk: 1. A Aleshia score greater than 3% is considered moderate risk. If this is the case, consider specialist referral to assess eligibility for a risk reducing agent. 2. If overall lifetime risk for the development of breast cancer is 20% or higher, the patient may qualify for future screening with alternating mammogram and breast MRI. [facility], , 12/04/2024 3:25 PM. Electronically signed and approved by: Bala Ornelas DO
== END | disposition home or self-care (01) ==
LOC: RADMAMWWP 15:00
PROVIDERS: ATTEND Family Medicine
DX: R92.8 Other abnormal and inconclusive findings on diagnostic imaging of breast (principal); R92.333 Mammographic heterogeneous density, bilateral breasts
CPT/HCPCS: 77062; 77066